=== PATIENT | male | born 1955 | race Caucasian/White ===

== ENCOUNTER 2018-02-17 22:16 | Observation (INO) | payer OTHER ==
[2018-02-17] MEDS ORDERED: DILTIAZEM 50 MG in SODIUM CHLORIDE 0.9% 40 ML IV ONE (22:45)
--- NOTE | 2018-02-17 22:47 | ED ---
General Adult HPI - General Chief complaint: Chest Pain Stated complaint: heart palpitations Time Seen by Provider: 02/17/18 22:33 Source: patient, RN notes reviewed Mode of arrival: wheelchair Limitations: no limitations - History of Present Illness Initial comments: Patient is a pleasant 62-year-old male presenting to the emergency Department with palpitations and chest discomfort. Onset of symptoms was around 8 PM. Discomfort has improved. Palpitations have resolved. Chest discomfort is minimal and described as pressure. did feel short of breath earlier. No history of similar symptoms previously. No history of previous cardiac problems or arrhythmia. - Related Data Home Medications Medication Instructions Recorded Confirmed Ascorbic Acid [Vitamin C] 1,000 mg PO DAILY 02/17/18 02/17/18 Calcium Carbonate [Calcium] 600 mg PO DAILY 02/17/18 02/17/18 Cholecalciferol [Vitamin D3] 1,000 unit PO DAILY 02/17/18 02/17/18 Hydrochlorothiazide 12.5 mg PO DAILY 02/17/18 02/17/18 Lisinopril 40 mg PO DAILY 02/17/18 02/17/18 Magnesium 200 mg PO DAILY 02/17/18 02/17/18 Metoprolol Succinate [Toprol Xl] 100 mg PO DAILY 02/17/18 02/17/18 Potassium 99 mg PO DAILY 02/17/18 02/17/18 Vitamin B Complex 1 cap PO DAILY 02/17/18 02/17/18 Zinc 50 mg PO DAILY 02/17/18 02/17/18 amLODIPine BESYLATE [Norvasc] 10 mg PO DAILY 02/17/18 02/17/18 Allergies Allergy/AdvReac Type Severity Reaction Status Date / Time No Known Allergies Allergy Verified 02/17/18 22:57 Review of Systems ROS Statement: Those systems with pertinent positive or pertinent negative responses have been documented in the HPI. ROS Other: All systems not noted in ROS Statement are negative. Constitutional: Denies: fever Eyes: Denies: eye pain ENT: Denies: ear pain Respiratory: Reports: dyspnea. Denies: cough Cardiovascular: Reports: chest pain, palpitations Endocrine: Denies: fatigue Gastrointestinal: Denies: abdominal pain Genitourinary: Denies: dysuria Musculoskeletal: Denies: back pain Skin: Denies: rash Neurological: Denies: weakness Past Medical History Past Medical History: Hypertension History of Any Multi-Drug Resistant Organisms: None Reported Past Surgical History: Appendectomy Additional Past Surgical History / Comment(s): eyes, nasal Past Psychological History: No Psychological Hx Reported Smoking Status: Former smoker Past Alcohol Use History: Rare Past Drug Use History: None Reported General Exam Limitations: no limitations General appearance: alert, in no apparent distress, obese Head exam: Present: atraumatic Eye exam: Present: normal appearance, PERRL ENT exam: Present: normal oropharynx Neck exam: Present: normal inspection Respiratory exam: Present: normal lung sounds bilaterally Cardiovascular Exam: Present: irregular rhythm, normal heart sounds Expanded Peripheral pulses: 2+: Radial (R), Radial (L), Dorsalis Pedis (R), Dorsalis Pedis (L) GI/Abdominal exam: Present: soft. Absent: tenderness Extremities exam: Present: normal inspection. Absent: pedal edema, calf tenderness Neurological exam: Present: alert Psychiatric exam: Present: normal affect, normal mood Skin exam: Present: normal color Course Vital Signs 02/17/18 22:19 Temperature 97.1 F L Pulse Rate 114 H Respiratory 18 Rate Blood Pressure 180/97 O2 Sat by Pulse 97 Oximetry EKG Findings - EKG Comments: EKG Findings:: A. fib with RVR, rate 121. QRS 98. QT 340. QTc 482. Normal axis. Normal QRS. No acute ST change. Medical Decision Making - Medical Decision Making Patient reevaluated and resting comfortably in bed. Heart rate between 100- 110. Patient and family updated on results and plan. Case was discussed in detail with Dr. mazariegos, who will admit for Dr. Mays. Cardiology will be placed on consult. - Lab Data Result diagrams: 02/17/18 22:48 02/17/18 22:48 Lab Results 02/17/18 02/17/18 02/17/18 Range/Units 22:48 22:48 22:48 WBC 13.3 H (3.8-10.6) k/uL RBC 4.95 (4.30-5.90) m/uL Hgb 14.0 (13.0-17.5) gm/dL Hct 40.9 (39.0-53.0) % MCV 82.6 (80.0-100.0) fL MCH 28.3 (25.0-35.0) pg MCHC 34.3 (31.0-37.0) g/dL RDW 14.2 (11.5-15.5) % Plt Count 245 (150-450) k/uL Neutrophils % 74 % Lymphocytes % 15 % Monocytes % 8 % Eosinophils % 2 % Basophils % 0 % Neutrophils # 9.8 H (1.3-7.7) k/uL Lymphocytes # 2.0 (1.0-4.8) k/uL Monocytes # 1.0 (0-1.0) k/uL Eosinophils # 0.3 (0-0.7) k/uL Basophils # 0.1 (0-0.2) k/uL PT (9.0-12.0) sec INR (<1.2) APTT (22.0-30.0) sec Sodium 142 (137-145) mmol/L Potassium 4.0 (3.5-5.1) mmol/L Chloride 102 (98-107) mmol/L Carbon Dioxide 23 (22-30) mmol/L Anion Gap 17 mmol/L BUN 16 (9-20) mg/dL Creatinine 1.00 (0.66-1.25) mg/dL Est GFR (CKD-EPI)AfAm >90 (>60 ml/min/1.73 sqM) Est GFR (CKD-EPI)NonAf 82 (>60 ml/min/1.73 sqM) Glucose 141 H (74-99) mg/dL Calcium 9.5 (8.4-10.2) mg/dL Magnesium 1.7 (1.6-2.3) mg/dL Total Bilirubin 0.3 (0.2-1.3) mg/dL AST 28 (17-59) U/L ALT 34 (21-72) U/L Alkaline Phosphatase 65 (38-126) U/L Total Creatine Kinase 177 H (55-170) U/L CK-MB (CK-2) 1.0 (0.0-2.4) ng/mL CK-MB (CK-2) Rel Index 0.6 Troponin I <0.012 (0.000-0.034) ng/mL Total Protein 7.8 (6.3-8.2) g/dL Albumin 4.6 (3.5-5.0) g/dL TSH 2.170 (0.465-4.680) mIU/L Free T4 0.94 (0.78-2.19) ng/dL Free T3 pg/mL 4.2 (2.8-5.3) pg/ml 02/17/18 Range/Units 22:48 WBC (3.8-10.6) k/uL RBC (4.30-5.90) m/uL Hgb (13.0-17.5) gm/dL Hct (39.0-53.0) % MCV (80.0-100.0) fL MCH (25.0-35.0) pg MCHC (31.0-37.0) g/dL RDW (11.5-15.5) % Plt Count (150-450) k/uL Neutrophils % % Lymphocytes % % Monocytes % % Eosinophils % % Basophils % % Neutrophils # (1.3-7.7) k/uL Lymphocytes # (1.0-4.8) k/uL Monocytes # (0-1.0) k/uL Eosinophils # (0-0.7) k/uL Basophils # (0-0.2) k/uL PT 10.5 (9.0-12.0) sec INR 1.1 (<1.2) APTT 23.8 (22.0-30.0) sec Sodium (137-145) mmol/L Potassium (3.5-5.1) mmol/L Chloride (98-107) mmol/L Carbon Dioxide (22-30) mmol/L Anion Gap mmol/L BUN (9-20) mg/dL Creatinine (0.66-1.25) mg/dL Est GFR (CKD-EPI)AfAm (>60 ml/min/1.73 sqM) Est GFR (CKD-EPI)NonAf (>60 ml/min/1.73 sqM) Glucose (74-99) mg/dL Calcium (8.4-10.2) mg/dL Magnesium (1.6-2.3) mg/dL Total Bilirubin (0.2-1.3) mg/dL AST (17-59) U/L ALT (21-72) U/L Alkaline Phosphatase (38-126) U/L Total Creatine Kinase (55-170) U/L CK-MB (CK-2) (0.0-2.4) ng/mL CK-MB (CK-2) Rel Index Troponin I (0.000-0.034) ng/mL Total Protein (6.3-8.2) g/dL Albumin (3.5-5.0) g/dL TSH (0.465-4.680) mIU/L Free T4 (0.78-2.19) ng/dL Free T3 pg/mL (2.8-5.3) pg/ml - Radiology Data Radiology results: image reviewed (Chest x-ray shows limited exam. No acute process.) Critical Care Time Critical Care Time: Yes Total Critical Care Time: 33 Disposition Clinical Impression: Atrial fibrillation with RVR Disposition: ADMITTED IP TO THIS HOSP Is patient prescribed a controlled substance at d/c from ED?: No Referrals: Rafael Mays MD [Primary Care Provider] - 1-2 days Decision Time: 00:16
[2018-02-17 23:00] LABS: Basophils # (A) 0.1 k/uL (0-0.2); Basophils % (A) 0 %; Eosinophils # (A) 0.3 k/uL (0-0.7); Eosinophils % (A) 2 %; HCT 40.9 % (39.0-53.0); Lymphocytes % (A) 15 %; MCH 28.3 pg (25.0-35.0); MCHC 34.3 g/dL (31.0-37.0); MCV 82.6 fL (80.0-100.0); Mean Platelet Volume 9.3; Monocytes % (A) 8 %; Neutrophils # (A) 9.8 k/uL (1.3-7.7); Neutrophils % (A) 74 %; Platelet Count 245 k/uL (150-450); RBC 4.95 m/uL (4.30-5.90); RDW 14.2 % (11.5-15.5); WBC 13.3 k/uL (3.8-10.6)
[2018-02-17 23:08] LABS: INR 1.1 (<1.2); Partial Thromboplastin Time 23.8 sec (22.0-30.0); Prothrombin Time 10.5 sec (9.0-12.0)
[2018-02-17 23:15] LABS: ALT 34 U/L (21-72); AST 28 U/L (17-59); Albumin 4.6 g/dL (3.5-5.0); Alkaline Phosphatase 65 U/L (38-126); Anion Gap 17 mmol/L; Blood Urea Nitrogen 16 mg/dL (9-20); Calcium 9.5 mg/dL (8.4-10.2); Carbon Dioxide 23 mmol/L (22-30); Chloride 102 mmol/L (98-107); Glucose 141 mg/dL (74-99); Magnesium 1.7 mg/dL (1.6-2.3); Sodium 142 mmol/L (137-145); Total Bilirubin 0.3 mg/dL (0.2-1.3); Total Protein 7.8 g/dL (6.3-8.2)
[2018-02-17 23:23] LABS: Creatine Kinase 177 U/L (55-170)
[2018-02-17 23:32] LABS: T4, Free (Free Thyroxine) 0.94 ng/dL (0.78-2.19)
[2018-02-17 23:36] LABS: Troponin I <0.012 ng/mL (0.000-0.034)
--- NOTE | 2018-02-17 23:43 | XR ---
EXAMINATION TYPE: XR chest 2V DATE OF EXAM: 02/17/2018 COMPARISON: NONE HISTORY: Heart palpitations TECHNIQUE: Frontal and lateral views of the chest are obtained. FINDINGS: There is no heart failure nor confluent pneumonic infiltrate. Exam is limited by the patie nt size. Heart is probably enlarged. There is no pleural effusion. There are chest leads. IMPRESSION: Limited exam. No active cardiopulmonary disease.
[2018-02-18] MEDS ORDERED: NITROGLYCERIN SL TABS 0.4 MG TAB SUBLINGUAL PRN (00:17)
[2018-02-18] MEDS ORDERED: HEPARIN SODIUM,PORCINE 5,000 UNIT/ML 1 ML VIAL IV PRN (00:17)
[2018-02-18] MEDS ORDERED: HEPARIN SODIUM,PORCINE 5,000 UNIT/ML 1 ML VIAL IV ONE (00:17)
[2018-02-18] MEDS ORDERED: HEPARIN SOD,PORK IN 0.45% NACL 25,000 UNIT in 0.45% NACL 1 500ML.BAG IV SCH (00:30)
[2018-02-18] MEDS: ASPIRIN 81 MG PO STA ×2 (00:36→00:37)
[2018-02-18 01:54] LABS: Glucose,Whole Blood 131 mg/dL (75-99)
[2018-02-18 02:26] VITALS: BMI 63.3
[2018-02-18 06:44] LABS: Mean Platelet Volume 8.7; Platelet Count 242 k/uL (150-450)
[2018-02-18 07:17] LABS: Creatine Kinase 164 U/L (55-170)
[2018-02-18 07:29] LABS: Troponin I <0.012 ng/mL (0.000-0.034)
--- NOTE | 2018-02-18 09:59 | ECHOF ---
Referral Reason:a fib MEASUREMENTS -------- HEIGHT: 193.0 cm WEIGHT: 235.9 kg BP: 159/95 RVIDd: 3.1 cm (< 3.3) IVSd: 2.0 cm (0.6 - 1.1) LVIDd: 4.7 cm (3.9 - 5.3) LVPWd: 1.8 cm (0.6 - 1.1) IVSs: 2.8 cm LVIDs: 2.7 cm LVPWs: 2.2 cm Ao Diam: 3.8 cm (2.0 - 3.7) AV Cusp: 2.7 cm (1.5 - 2.6) MV EXCURSION: 22.495 mm (> 18.000) MV EF SLOPE: 115 mm/s (70 - 150) EPSS: 0.8 cm FINDINGS -------- This was a technically difficult study with suboptimal views. The left ventricular size is normal. There is severe concentric left ventricular hypertrophy. Ove rall left ventricular systolic function is normal with, an EF between 60 - 65 %. The right ventricle is normal in size. The left atrium was not well visualized. The right atrium is normal in size. 5 ml of Lumason was utilized for enhancement of images. The aortic valve is trileaflet and appears structurally normal. The mitral valve was not well visualized. The tricuspid valve was not well visualized. The pulmonic valve was not well visualized. The aortic root is dilated measuring 3.8cm. There is no pericardial effusion. CONCLUSIONS -------- 1. This was a technically difficult study with suboptimal views. 2. The left ventricular size is normal. 3. There is severe concentric left ventricular hypertrophy. 4. Overall left ventricular systolic function is normal with, an EF between 60 - 65 %. 5. The right ventricle is normal in size. 6. The left atrium was not well visualized. 7. The right atrium is normal in size. 8. 5 ml of Lumason was utilized for enhancement of images. 9. The aortic valve is trileaflet and appears structurally normal. 10. The mitral valve was not well visualized. 11. The tricuspid valve was not well visualized. 12. The pulmonic valve was not well visualized. 13. The aortic root is dilated measuring 3.8cm. 14. There is no pericardial effusion. PIECE DYER: Guera Gorman RDCS
--- NOTE | 2018-02-18 10:41 | CONS ---
CONSULTATION Mr. Lunsford is a 62-year-old male with a history of hypertension who presented with symptoms of palpitation that occurred at rest, associated with some tightness in the chest and dyspnea. He did not have any dizziness. He came into the emergency room, was noted to be in atrial fibrillation with rapid ventricular response and subsequently converted to sinus mechanism. He has maintained sinus mechanism since that time. He denies any prior history of documented arrhythmia. He has no prior cardiac history. He is not very active physically because of his history of arthritis. He has no history of peripheral edema. The chronic dyspnea on exertion was worse yesterday. He has no history of PND nor orthopnea. He has symptoms highly suggestive of obstructive sleep apnea, but has not been diagnosed in the past. He has no history of ischemic heart disease. His coronary risk factors are remarkably for hypertension. He stopped smoking a long time ago. He has no history of diabetes. His lipid profile has been stable according to him MEDICATION: His medications at home include amlodipine 10 mg daily, potassium, metoprolol succinate 100 mg daily, magnesium, lisinopril 40 mg daily, hydrochlorothiazide 12.5 mg daily, calcium carbonate, vitamin D and vitamin C. REVIEW OF SYSTEMS: RESPIRATORY SYSTEM: He has dyspnea on exertion, but no documented history of asthma, emphysema or bronchitis. GI SYSTEM: No recent GI bleed. No peptic ulcer disease. SYSTEM: No dysuria or hematuria. NERVOUS SYSTEM: No history of stroke or seizure. PHYSICAL EXAMINATION: He is a 62-year-old male, alert, oriented, in no apparent distress. Morbidly obese. Blood pressure 159/90 with the heart rate in the 80s. HEAD: Normocephalic. EYES: Sclerae anicteric. NECK: Good upstroke. No bruit. No jugular venous distention. LUNGS: Clear to auscultation. HEART: Regular rate and rhythm. S1, S2. No S3. No rub. ABDOMEN: Soft, obese. Positive bowel sounds. No organomegaly. EXTREMITIES: No edema. +2 distal pulses. LAB DATA: Lab data revealed troponin less than 0.012. BUN and creatinine of 16 and 1.0. TSH 2.17. Hemoglobin of 14. EKG revealed atrial fibrillation, rate of 121, normal axis, nonspecific ST-T wave changes. Chest x-ray shows no acute infiltrate. IMPRESSION: 1. Paroxysmal atrial fibrillation, back in sinus mechanism. 2. Hypertension. 3. Morbid obesity. 4. Evidence consistent with obstructive sleep apnea. RECOMMENDATION: I will stop the heparin and the IV Cardizem. I will switch him to oral Cardizem instead of the amlodipine. I will start him on Xarelto. I discussed with him the issue of thromboembolic phenomenon. An echocardiogram with Doppler will be obtained. The patient will require a sleep apnea study. I have discussed with him the importance of weight loss. Depending on his progress, further recommendation to be made. If he remains stable, I would expect he should be able to be discharged home in the next 24 hours. MMODL / IJN: [id number] /
[2018-02-18] MEDS: HYDROCHLOROTHIAZIDE 12.5 MG CAP PO SCH (10:50)
[2018-02-18] MEDS: LISINOPRIL 20 MG TAB PO SCH (10:50)
[2018-02-18] MEDS: RIVAROXABAN 20 MG TAB PO SCH ×2 (10:50→16:31)
[2018-02-18] MEDS: POTASSIUM CHLORIDE ER 10 MEQ TAB.ER.PRT PO SCH (10:51)
[2018-02-18] MEDS: DILTIAZEM ORAL 30 MG TAB PO SCH ×3 (10:51→21:12)
[2018-02-18 13:21] LABS: Creatine Kinase 185 U/L (55-170)
[2018-02-18 13:32] LABS: Creatine Kinase MB 1.1 ng/mL (0.0-2.4); Troponin I <0.012 ng/mL (0.000-0.034)
--- NOTE | 2018-02-18 17:38 | HP ---
HISTORY AND PHYSICAL DATE OF SERVICE: 02/18/18. PRESENTING COMPLAINT: Heart racing. HISTORY OF PRESENTING COMPLAINT: A very pleasant 62-year-old patient of Dr. Mays whose chronic stable medical conditions include arthritis in the knees, hypertension, obesity. The patient yesterday evening felt his heart racing, some mild chest discomfort. No dizziness, lightheadedness, did not stop on its own and decided to come down to the ER. In the ER where patient is put on IV Cardizem and IV heparin. The patient subsequently did revert himself to sinus rhythm and has been asymptomatic since then. Denies any prior cardiac history. REVIEW OF SYSTEMS: CONSTITUTIONAL: None. HEENT: None. RESPIRATORY: As above. CARDIOVASCULAR: As above. GASTROINTESTINAL: None. GENITOURINARY: None. MUSCULOSKELETAL: Arthritic pain especially in the feet and knees, some hips. DERMATOLOGICAL, HEMATOLOGIC, LYMPHATIC: None. PSYCHIATRY: None. NEUROLOGICAL: None. PAST HISTORY: Past history of hypertension, obesity, osteoarthritis. PAST SURGICAL HISTORY: Appendectomy. SOCIAL HISTORY: No smoking. Alcohol rarely. Lives with significant other. Retired. FAMILY HISTORY: Myocardial infarction, hypertension, congestive heart failure. HOME MEDICATIONS: 1. Norvasc 10 mg p.o. daily. 2. Zinc 50 mg p.o. daily. 3. Vitamin B complex 1 capsule p.o. daily. 4. Potassium 99 mg p.o. daily. 5. Toprol-XL 100 mg p.o. daily. 6. Magnesium 200 mg p.o. daily. 7. Lisinopril 40 mg p.o. daily. 8. Hydrochlorothiazide 12.5 p.o. daily. 9. Vitamin D3 1000 units p.o. daily. 10.Calcium 600 mg p.o. daily. 11.Vitamin C 1000 mg p.o. daily. ALLERGIES: None. EXAMINATION: Temp 98, pulse 54, respiration 18, blood pressure 150/78, pulse ox 95% on room air. GENERAL APPEARANCE: Morbidly obese, BMI 81.4. Sitting up in a chair, comfortable. EYES: Pupils equal. Conjunctivae normal. HEENT: External appearance nose and ears normal. Oral cavity normal. NECK: Short, thick. JVD unable to assess. Mass not palpable. RESPIRATORY: Effort normal. Lungs distant breath sounds. CARDIOVASCULAR: Heart sounds first and second sounds normal. No edema. ABDOMEN: Distended, soft. Liver and spleen not palpable. LYMPHATIC: No lymph node palpable in neck and axillae. PSYCHIATRY: Alert and oriented x3. Mood and affect normal. NEUROLOGICAL: Pupils are clear. Cranial nerves grossly intact. Power and sensation grossly intact. MUSCULOSKELETAL: Evidence of osteoarthritis especially in the knees. INVESTIGATIONS: White count 13.3, hemoglobin 14, potassium 4.0, BUN and creatinine normal. Troponin x3 negative. TSH was normal. EKG shows atrial fibrillation, rate uncontrolled. 2D echo shows severe concentric left ventricular hypertrophy. ASSESSMENT: 1. Paroxysmal atrial fibrillation, rapid ventricular rate, reverted to sinus rhythm within less than 24 hours. 2. Hypertensive heart disease. 3. Morbid obesity, BMI 81.4. 4. Essential hypertension. 5. Primary osteoarthritis of both the knees. 6. IV heparin monitoring. PLAN: Patient's heparin and Cardizem was discontinued, switched to oral Cardizem. The patient also put on Toprol-XL and Xarelto. Seen by Cardiology. Will have dietitian see the patient for weight loss measures. Care was discussed with the patient. MMODL / IJN: [id number] /
[2018-02-19 05:35] LABS: HCT 38.3 % (39.0-53.0); HGB 13.2 gm/dL (13.0-17.5); MCH 28.6 pg (25.0-35.0); MCHC 34.5 g/dL (31.0-37.0); MCV 82.9 fL (80.0-100.0); Mean Platelet Volume 8.6; Platelet Count 224 k/uL (150-450); RBC 4.63 m/uL (4.30-5.90); RDW 14.3 % (11.5-15.5)
[2018-02-19 05:47] LABS: Anion Gap 14 mmol/L; Blood Urea Nitrogen 16 mg/dL (9-20); Calcium 9.2 mg/dL (8.4-10.2); Carbon Dioxide 24 mmol/L (22-30); Chloride 103 mmol/L (98-107); Cholesterol 107 mg/dL (<200); Glucose 124 mg/dL (74-99); HDL Cholesterol 30 mg/dL (40-60); LDL Cholesterol,Calculated 53 mg/dL (0-99); Magnesium 1.9 mg/dL (1.6-2.3); Phosphorus 3.4 mg/dL (2.5-4.5); Potassium 3.7 mmol/L (3.5-5.1); Sodium 141 mmol/L (137-145); Triglycerides 119 mg/dL (<150)
[2018-02-19] MEDS ORDERED: POTASSIUM CHLORIDE ER 20 MEQ TAB.ER PO SCH (07:00)
[2018-02-19] MEDS: POTASSIUM CHLORIDE ER 10 MEQ TAB.ER.PRT PO SCH (08:05)
[2018-02-19] MEDS: DILTIAZEM ORAL 30 MG TAB PO SCH (08:06)
[2018-02-19] MEDS: LISINOPRIL 20 MG TAB PO SCH (08:06)
[2018-02-19] MEDS: HYDROCHLOROTHIAZIDE 12.5 MG CAP PO SCH (08:06)
[2018-02-19] MEDS ORDERED: MAGNESIUM OXIDE 400 MG TAB PO SCH (09:00)
[2018-02-19] MEDS ORDERED: METOPROLOL SUCCINATE (ER) 100 MG TAB.ER.24H PO SCH (09:00)
[2018-02-19] MEDS ORDERED: ASCORBIC ACID 500 MG TAB PO SCH (09:00)
[2018-02-19] MEDS ORDERED: ASPIRIN 325 MG TAB PO SCH (09:00)
[2018-02-19 09:05] VITALS: BP 148/63; PULSE 87; RESP 16; TEMP 97.9
--- NOTE | 2018-02-19 11:03 | PN ---
PROGRESS NOTE Mr. Lunsford is a 63-year-old male who presented with symptoms of palpitation, was noted to be in atrial fibrillation. Subsequently he converted to sinus mechanism. He is doing well this morning. He continues to be in sinus mechanism. He denies any dizziness or palpitation. He denies any nausea. He has been sitting up without any difficulty. He had an echocardiogram performed yesterday that showed a preserved systolic function. He continues to be on Xarelto 20 mg daily, metoprolol succinate 100 mg daily, lisinopril 40 mg daily, diltiazem 30 mg 3 times a day. PHYSICAL EXAMINATION: Blood pressure 148/60 with a heart rate in the 80s. LUNGS: Clear. HEART: Regular rate and rhythm. S1, S2. No S3. No rub. ABDOMEN: Soft, obese, nontender. EXTREMITIES: No significant edema. LAB DATA: BUN and creatinine of 16 and 0.8, potassium 3.7, hemoglobin 13.2. IMPRESSION: 1. Paroxysmal atrial fibrillation; remaining in sinus mechanism. 2. Hypertension. 3. Morbid obesity. 4. Probable obstructive sleep apnea. RECOMMENDATION: Patient should be able to be discharged home today and followed as an outpatient. He will undergo a sleep study as an outpatient and he will be seen by Dr. Davies in that regard. MMODL / IJN: [id number] /
--- NOTE | 2018-02-19 11:48 | DS ---
DISCHARGE SUMMARY DATE OF ADMISSION: 02/18/2018. DATE OF DISCHARGE: 02/19/2018 FINAL DIAGNOSES: 1. Paroxysmal atrial fibrillation with rapid ventricular rate, reverted to sinus rhythm within a few hours. 2. Hypertensive heart disease. 3. Morbid obesity with body mass index of 81.4. 4. Essential hypertension. 5. Primary osteoarthritis of both knees. 6. IV heparin monitoring. CONSULTATION: Dr. Maxwell from Cardiology. HOSPITAL COURSE: This patient presented with heart racing, found to be in atrial flutter/fibrillation, put on IV heparin, Cardizem, reverted to normal sinus rhythm within a few hours. Two-D echo showed preserved LV function. TSH was normal. The patient has remained in sinus rhythm. PHYSICAL EXAMINATION: Lungs are clear. CARDIOVASCULAR: First and second sounds normal. CONSULTATION: Dr. Maxwell from Cardiology. DISCHARGE MEDICATIONS: 1. Vitamin C 1000 mg p.o. daily. 2. Calcium 600 mg p.o. daily. 3. Vitamin D3 1000 units p.o. daily. 4. Lisinopril 40 mg p.o. daily. 5. Magnesium 200 mg p.o. daily. 6. Toprol-XL 100 mg p.o. daily. 7. Potassium daily. 8. Vitamin B complex 1 capsule p.o. daily. 9. Zinc 50 mg p.o. daily. 10.Norvasc 10 mg p.o. daily. 11.Chlorthalidone 25 mg p.o. daily. New medication. 12.Cardizem 30 mg p.o. t.i.d. New medication. 13.Xarelto 20 mg p.o. with supper. New medication. Amlodipine discontinued. FOLLOWUP: Follow up with Dr. Maxwell in 2 weeks. Follow up with Dr. Mays in 3 days. BMP in 3 days. Care was discussed with the patient and family at bedside. MMODL / IJN: [id number] /
== END 2018-02-19 12:24 | disposition home or self-care (01) ==
LOC: EC 22:16 → 6ICU 02-18 00:17 → INTOOBSV 02-18 00:17 → UNDODISIN 02-19 12:24
PROVIDERS: ADMIT Hospitalist; ATTEND Hospitalist
DX: I48.0 Paroxysmal atrial fibrillation (principal); I11.9 Hypertensive heart disease without heart failure; I48.92 Unspecified atrial flutter; E66.01 Morbid (severe) obesity due to excess calories; Z68.45 Body mass index [BMI] 70 or greater, adult; M17.0 Bilateral primary osteoarthritis of knee; M16.0 Bilateral primary osteoarthritis of hip; M19.072 Primary osteoarthritis, left ankle and foot; M19.071 Primary osteoarthritis, right ankle and foot; Z79.899 Other long term (current) drug therapy; Z87.891 Personal history of nicotine dependence; Z82.49 Family history of ischemic heart disease and other diseases of the circulatory system
CPT/HCPCS: 96365 ×2; 99291 ×2; 96376 ×2; 96366 ×2; 96368; 36415; 93005; 84439; 84481; 80061; 80053; 80048; 82550 ×2; 82553 ×2; 83735 ×2; 84100; 84443; 84484 ×2; 85025; 85027; 85049; 85610; 85730 ×2; 71046; G0378 ×2; C8929; J1644 ×2; Q9950; 93306

== ENCOUNTER → 2018-02-21 | Outpatient (CLI) | payer OTHER ==
[2018-02-21 13:05] LABS: Anion Gap 17 mmol/L; Blood Urea Nitrogen 18 mg/dL (9-20); Calcium 9.7 mg/dL (8.4-10.2); Carbon Dioxide 25 mmol/L (22-30); Chloride 102 mmol/L (98-107); Glucose 115 mg/dL (74-99); Potassium 4.7 mmol/L (3.5-5.1); Sodium 144 mmol/L (137-145)
== END | disposition home or self-care (01) ==
LOC: LABWHC1 12:08
PROVIDERS: ATTEND Hospitalist
DX: I48.91 Unspecified atrial fibrillation (principal)
CPT/HCPCS: 36415; 80048

== ENCOUNTER → 2018-04-05 | Outpatient (CLI) | payer OTHER ==
--- NOTE | 2018-04-05 18:33 | CONS ---
CONSULTATION REASON FOR CONSULTATION: Obstructive sleep apnea. Mr. Lunsford is a pleasant 63-year-old male patient, morbidly obese. He was recently hospitalized for new-onset atrial fibrillation. He has a history of chronic hypertension and he presented to the hospital because of palpitations, and sure enough, he had atrial fibrillation. He converted back to normal sinus mechanism. He was placed on a combination of Cardizem and metoprolol and Xarelto, and the echocardiogram of the heart that was done during his hospital stay showed a preserved LV function with an ejection fraction of 60% to 65% without any valvular abnormalities. Based on his anatomic features, he was referred to me for a sleep apnea evaluation. He has loud snoring. He sleeps with the head of the bed elevated at 30 degrees with a couple of pillows. He stops breathing at night and he has chronic tiredness and sleepiness during the day. He goes to bed around 10 p.m., wakes up at 7 a.m. in the morning, non- refreshed. He drives a car, has never been involved in a motor vehicle accident because of feeling drowsy or sleepy. He has some chronic edema in the lower extremities bilaterally. His BMI is 62.5. His neck size is 22. High risk for obstructive sleep apnea. PAST MEDICAL HISTORY: 1. Paroxysmal atrial fibrillation. Current rhythm is sinus mechanism. 2. Morbid obesity with BMI of 62. 3. Hypertension. SURGICAL HISTORY: 1. Eye surgery, left. 2. Sinus surgery for deviated septum. 3. Appendectomy. ALLERGIES: NOT KNOWN. OUTPATIENT MEDICATION LIST: 1. Norvasc 10. 2. Hydrochlorothiazide 25. 3. Cardizem 30 mg t.i.d. 4. Lisinopril 40 daily. 5. Metoprolol 100 daily. 6. Xarelto 20 daily. SOCIAL HISTORY: Nonsmoker. No history of alcoholism. No history of IV drugs. FAMILY HISTORY: Negative for sleep apnea. REVIEW OF SYSTEMS: Twelve-point review of systems was done. Positive findings are all mentioned above in the history of present illness. The patient admits to quit breathing at night as witnessed by other family members. He has difficulty with mobility due to his body weight and he walks around with the help of a walker. He has been having issues with nocturia at night time, as he gets up at least 4 to 5 times to urinate. Occasionally he woken up gasping for air. No anxiety or panic attacks. No palpitation. No heartburn. No restlessness in the lower extremities. No sleepwalking or sleeptalking. No nightmares. No bad dreams. No sleep paralysis, hallucinations or cataplexy. No anxiety. No depression. PHYSICAL EXAMINATION: BP is 157/86, pulse 100, respirations 16. Temperature is 97.8. Neck size 22 inches. BMI 62.5. Saturation 98% on room air. GENERAL APPEARANCE: Calm, comfortable. No acute distress. Head is atraumatic, normocephalic. Neck is short, supple. Crowding of posterior pharynx. Mallampati class IV. LUNGS: Clear to auscultation. Heart sounds are regular rate and rhythm. Normal S1, S2. No S3, S4. No murmurs. ABDOMEN: Soft, nontender. No organomegaly. In fact, organs cannot be actually palpated because of his morbidly obese body habitus. No ascites. EXTREMITIES: Plus one edema. There is no cyanosis or clubbing. NEUROLOGIC: Awake and alert. There is no focal neurological deficit. PSYCHIATRIC: Negative for anxiety or depression. Skin is negative for any wounds or ulceration. IMPRESSION: 1. Obstructive sleep apnea clinically suspected. Overall clinical suspicion is quite high in this patient who has obvious symptoms and anatomic features. 2. Obesity; body mass index of 62.5. 3. Mallampati class IV with a neck size of 22. 4. Paroxysmal atrial fibrillation, currently in normal sinus mechanism. 5. Hypertension. PLAN: 1. Will set up this patient for a polysomnogram and decide on treatment accordingly. 2. Encourage weight loss. 3. Continue implementing good sleep hygiene measures. 4. Tight control of cardiovascular risk factors and atrial fibrillation management. 5. Will continue to follow and will make further recommendations based on the results. MMODL / IJN: [id number] /
== END | disposition home or self-care (01) ==
LOC: SLEEP 15:40
PROVIDERS: ATTEND Internal Medicine Critical Care Medicine
DX: E66.9 Obesity, unspecified (principal); I10 Essential (primary) hypertension; Z68.44 Body mass index [BMI] 60.0-69.9, adult; Z79.899 Other long term (current) drug therapy
CPT/HCPCS: 99211

== ENCOUNTER → 2018-07-19 | Outpatient (CLI) | payer OTHER ==
--- NOTE | 2018-07-19 14:55 | PN ---
PROGRESS NOTE This is a 63-year-old male patient with severe obstructive sleep apnea with an AHI of 92.8, and the patient is coming in for a compliancy check. The patient was diagnosed having obstructive sleep apnea recently and the patient was given BiPAP at a pressure of 16/12 cm of water. On today's evaluation, the patient feels great, he reports marked improvement in sleep quality. He is sleeping much better. He is waking up much more alert and refreshed during the day. His nocturia has also recovered. No hypersomnia or sleepiness during the day. He is trying to take no naps during the day. His weight is down by around 10 pounds, he used to weight 514 and is currently down to 504 pounds. Overall, improved and is benefitting from the treatment and his current Schlater score is down to 4. Based on the compliance data, patient utilizes his CPAP 100% of the time. The patient utilizes CPAP more than 4 hours 100% of the time. His pressure is at 16/12 cm of water. His tidal volume obtained is 700, his synchrony is 98%. His AHI while on treatment is down to 4.6, leak factor is 10 L/minute. As the patient utilizing a Simplus fullface medium size. No other complaints for now. No aerophagia. No leaks around the mask. Some occasional dryness in his eyes for which he is using eye drops. REVIEW OF SYSTEMS: A 12-point review of system was done. Weight is down by around 10 pounds and the patient is feeling much more refreshed and alert during the day. His treatment is quite successful for now. No restlessness in the lower extremities, no depression or anxiety. No heartburn, no shortness of breath. No chest pain. PHYSICAL EXAMINATION: BP is 168/86, pulse 78, respirations 16, weight is 504, temperature is 97.8, saturation 97% on room air. GENERAL APPEARANCE: Calm, comfortable. Head is atraumatic, normocephalic. Neck is short, supple. There is crowding of posterior pharynx. There is no goiter or neck masses. Lungs diminished, otherwise clear. HEART: Sounds are regular. Normal S1, S2. No S3. No murmurs. ABDOMEN: Obese, soft, nontender. No organomegaly. EXTREMITIES: Trace edema. There is no cyanosis or clubbing. IMPRESSION: 1. Severe symptomatic obstructive sleep apnea with an apnea-hypopnea index of 92. Patient undergoing successful BiPAP treatment with a pressure of 16/12 cm of water. 2. Hypersomnia, improved Schlater score is down to 4. 3. Sleep fragmentation improved. 4. Sleep quality improved. 5. Obesity with a body mass index of 62.6. Currently his weight is down to 504. 6. Paroxysmal atrial fibrillation. 7. Hypertension. PLAN: Congratulated this patient's effort to use his BiPAP. His treatment is successful, he is benefitting from the treatment. Continue the same pressure setting, continue the same mask interface, encourage weight loss. Control of cardiovascular risk factors. Treatment was successful. See me back in a year's time. Follow up earlier, if needed. MMODL / IJN: [id number] /
== END | disposition home or self-care (01) ==
LOC: SLEEP 12:59
PROVIDERS: ATTEND Internal Medicine Critical Care Medicine
DX: G47.33 Obstructive sleep apnea (adult) (pediatric) (principal); I48.0 Paroxysmal atrial fibrillation; E66.9 Obesity, unspecified; I10 Essential (primary) hypertension; Z99.89 Dependence on other enabling machines and devices; Z68.44 Body mass index [BMI] 60.0-69.9, adult

== ENCOUNTER 2019-02-24 21:14 | Emergency (ER) | payer OTHER ==
[2019-02-24 21:18] VITALS: TEMP 98.1
--- NOTE | 2019-02-24 22:07 | XR ---
EXAMINATION TYPE: XR shoulder complete RT DATE OF EXAM: 02/24/2019 COMPARISON: NONE HISTORY: Fall. Pain. TECHNIQUE: 3 views FINDINGS: There is anterior dislocation of the humeral head. There is irregular calcification of the glenoid. There is spurring at the AC joint. IMPRESSION: Osteoarthritic changes of the shoulder joint. There is an anterior dislocation of the hum eral head. No fracture seen.
[2019-02-24] MEDS ORDERED: MORPHINE SULFATE 4 MG/ML SYRINGE IVP STA (22:09)
--- NOTE | 2019-02-24 22:19 | XR ---
EXAM: XR Right Elbow Complete, 3 or More Views CLINICAL HISTORY: ITS.REASON XR Reason: Pain TECHNIQUE: Frontal, lateral and oblique views of the right elbow. COMPARISON: None FINDINGS: Bones/joints: No acute fracture or dislocation identified. Degenerative changes of the right elbow. No joint effusion. Soft tissues: Normal. IMPRESSION: No acute abnormality identified.
--- NOTE | 2019-02-24 22:42 | XR ---
EXAM: XR Right Shoulder Complete, 2 or More Views CLINICAL HISTORY: ITS.REASON XR Reason: post reduction TECHNIQUE: Two or more views of the right shoulder. COMPARISON: Right shoulder radiographs on 02/24/2019 at 2205 hrs. FINDINGS: Bones/joints: Normal alignment of the right shoulder joint status post reduction. No definite acute fracture identified. Degenerative changes of the right acromial clavicular joint. Degenerative changes of the right glenohumeral joint. Soft tissues: Normal. IMPRESSION: Normal alignment of the right shoulder joint status post reduction. No definite acute fracture identified.
[2019-02-24 23:10] VITALS: BP 139/86; PULSE 87; RESP 18
--- NOTE | 2019-02-24 23:18 | ED ---
Upper Extremity HPI - General Chief Complaint: Extremity Injury, Upper Stated Complaint: Shoulder pain Time Seen by Provider: 02/24/19 21:36 Source: patient Mode of arrival: wheelchair Limitations: no limitations - History of Present Illness Initial Comments: 64-year-old male presenting today for chief complaint of right shoulder pain. Patient states he was stepping into his truck he states he has bilateral "bad knees". He states his left knee felt like it gave out he fell onto his right side extending his right arm to catch his fall. Patient states he felt his shoulder pop and was unable to range at the right shoulder. Patient was concerned of dislocation. Patient states his right shoulder was hanging. Patient denies pain at the elbow or wrist. Patient states he is unable to extend at the wrist. Admits to a tingling sensation. Patient denies injury to the head or neck. Patient denies any back pain knee pain hip pain and leg pain. Patient states he feels fine aside from the pain in the right shoulder. Which he describes as tolerable sharp pain that increases with range of motion. Patient denies any pain of the scapula. Remaining review of systems negative, Patient denies any recent fever, chills, shortness of breath, chest pain, back pain, abdominal pain, nausea or vomiting, dysuria or hematuria, constipation or diarrhea, headaches or visual changes, or any other complaints. - Related Data Home Medications Medication Instructions Recorded Confirmed Ascorbic Acid [Vitamin C] 1,000 mg PO DAILY 02/17/18 02/24/19 Calcium Carbonate [Calcium] 600 mg PO DAILY 02/17/18 02/24/19 Cholecalciferol [Vitamin D3] 1,000 unit PO DAILY 02/17/18 02/24/19 Lisinopril 40 mg PO DAILY 02/17/18 02/24/19 Magnesium 200 mg PO DAILY 02/17/18 02/24/19 Metoprolol Succinate [Toprol Xl] 100 mg PO DAILY 02/17/18 02/24/19 Potassium 99 mg PO DAILY 02/17/18 02/24/19 Vitamin B Complex 1 cap PO DAILY 02/17/18 02/24/19 Zinc 50 mg PO DAILY 02/17/18 02/24/19 amLODIPine BESYLATE [Norvasc] 10 mg PO DAILY 02/17/18 02/24/19 Previous Rx's Medication Instructions Recorded Chlorthalidone 25 mg PO DAILY #30 tab 02/19/18 Diltiazem Oral [Cardizem*] 30 mg PO TID #90 tab 02/19/18 Rivaroxaban [Xarelto] 20 mg PO W/SUPPER #30 tab 02/19/18 HYDROcodone/APAP 5-325MG [[place] 1 tab PO Q6HR PRN 3 Days #12 tab 02/25/19 5-325] Allergies Allergy/AdvReac Type Severity Reaction Status Date / Time No Known Allergies Allergy Verified 02/24/19 22:03 Review of Systems ROS Statement: Those systems with pertinent positive or pertinent negative responses have been documented in the HPI. ROS Other: All systems not noted in ROS Statement are negative. Past Medical History Past Medical History: Hypertension History of Any Multi-Drug Resistant Organisms: None Reported Past Surgical History: Appendectomy Additional Past Surgical History / Comment(s): eyes, nasal Past Psychological History: No Psychological Hx Reported Smoking Status: Former smoker Past Alcohol Use History: Rare Past Drug Use History: None Reported - Past Family History Mother Family Medical History: AFIB, Congestive Heart Failure (CHF), Hypertension, Myocardial Infarction (SD) General Exam - General Exam Comments Initial Comments: General: The patient is awake and alert, in no distress, and does not appear acutely ill. Eye: +3 mm pupils are equal, round and reactive to light, extra-ocular movements are intact. No nystagmus. There is normal conjunctiva bilaterally. No signs of icterus. Ears, nose, mouth and throat: There are moist mucous membranes and no oral lesions. Neck: The neck is supple, there is no tenderness or JVD. Cardiovascular: There is a regular rate and rhythm. No murmur, rub or gallop is appreciated. Respiratory: Lungs are clear to auscultation, respirations are non-labored, breath sounds are equal. No wheezes, stridor, rales, or rhonchi. Gastrointestinal: Soft, non-distended, non-tender abdomen without masses or organomegaly noted. There is no rebound or guarding present.. Bowel sounds are unremarkable. Musculoskeletal: Normal ROM at the elbow b/l, left shoulder and left wrist, no tenderness. Deformities or tenderness to palpation the clavicles. Patient has gross deformity of the right shoulder. No pain or patient at the elbow or wrist. Right wrist drop noted. Patient is unable to extend at the wrist. Patient is able to oppose the first and second digits with full strength. Making the okay sign. Patient's able to oppose the pinky and the thumb. Patient is able to give a thumbs up sign. Patient is not able to extend at the right wrist. Patient denies any numbness in the badge region Strength 5/5 at the elbows, patient is able to fully flex at the wrist however no strength with extension. Sensation intact. Radial pulses equal bilaterally 2+. Neurological: A&O x 3. CN II-XII intact, There are no obvious motor or sensory deficits. Coordination appears grossly intact. Speech is normal. Skin: Skin is warm and dry and no rashes or lesions are noted. Psychiatric: Cooperative, appropriate mood & affect, normal judgment. Limitations: no limitations Course Vital Signs 02/24/19 02/24/19 21:14 23:09 Temperature 98.1 F Pulse Rate 85 87 Respiratory 20 18 Rate Blood Pressure 187/90 139/86 O2 Sat by Pulse 97 96 Oximetry Medical Decision Making - Medical Decision Making 64-year-old male presenting today for chief complaint of right shoulder pain. Patient concerned of dislocation. Gross deformity on exam. Patient had good radial pulses. However there was noted radial nerve palsy with right wrist drop on examination. After obtaining imaging studies patient was immediately reduced without sedation. I was assisted in the reduction by Physician Beam Dyer Ari Orozco. Sensory reduction patient tolerated the procedure well patient denies significant pain he admits to improvement of pain upon reduction. Reduction was confirmed using magic studies. No evidence of fracture. Patient states the symptoms tingling sensation in his fingers is subsiding. Strong radial pulses, post reduction. However patient continues to have right wrist drop. Patient is right-hand dominant. I contacted on-call orthopedic Physician Beam Dyer Arcadio Nevarez, who reviewed imaging studies. I discussed the finding of right wrist drop concern for radial nerve injury. He stated if patient was reduced, then he is stable for discharge regardless of palsy with orthopedic follow-up next week. Patient's arm was too large for sling. A supportive wrap was made using alvarado bandages of the right upper extremity to support the right shoulder. Pt provided RX of norco for pain management after getting proper use and risk involved. Patient verbalized understanding. I discussed the case with attending provider in detail Dr. Singh who was aware of radial nerve palsy and orthopedic recommendations, he reviewed imaging studies and is agreeable with patient care plan. Pt discharged appearing well. Prior to patient's discharge return parameters were discussed at length and in detail with both patient and patient's . This included immediate return for redislocation increasing pain numbness tingling or loss of sensation or coolness or pallor of the extremity. Patient verbalized understanding importance of return parameters denied questions at this time. Disposition Clinical Impression: Right anterior shoulder pain, Right wrist drop Disposition: HOME SELF-CARE Condition: Good Instructions (If sedation given, give patient instructions): Shoulder Dislocation (ED) Additional Instructions: Please use medication as discussed. Please follow-up with orthopedic surgery in the next week. Please return to emergency room if the symptoms increase or worsen or for any other concerns. Prescriptions: HYDROcodone/APAP 5-325MG [[place] 5-325] 1 tab PO Q6HR PRN 3 Days #12 tab PRN Reason: Severe Pain Is patient prescribed a controlled substance at d/c from ED?: No Referrals: Rafael Mays MD [Primary Care Provider] - 1-2 days Eliseo Tang DO [Doctor of Osteopathic Medicine] - 1-2 days Time of Disposition: 23:17
== END 2019-02-25 00:44 | disposition home or self-care (01) ==
LOC: EC 21:14
DX: S43.014A Anterior dislocation of right humerus, initial encounter (principal); M21.331 Wrist drop, right wrist; G56.31 Lesion of radial nerve, right upper limb; I10 Essential (primary) hypertension; Z79.899 Other long term (current) drug therapy; Z87.891 Personal history of nicotine dependence; W19.XXXA Unspecified fall, initial encounter; Y92.009 Unspecified place in unspecified non-institutional (private) residence as the place of occurrence of the external cause
CPT/HCPCS: 73020; 73030; 73070; 99283; 23650; 96374; J2270

== ENCOUNTER → 2019-07-11 | Outpatient (CLI) | payer OTHER ==
--- NOTE | 2019-07-11 18:34 | PN ---
PROGRESS NOTE SLEEP CENTER PROGRESS NOTE: Herb is 64 with history of severe obstructive sleep apnea. The patient has an AHI of 92 and the patient has been successfully with a BiPAP pressure of 16/12 cm of water. The patient is coming in for an annual check. He is still using a Simplus full-face mask. Unfortunately he has not been given supplies on a regular basis and he is using an older mask for now. Nevertheless, he continues to be successfully treated. His compliance data was checked and the patient has been averaging around 8.3 hours of BiPAP use per night. His BiPAP use for more than 4 hours is 100%. His spontaneous cycling is around 95% of the time. Tidal volume is at 680 with a respiratory rate of 16 and a leak of 11 L/minute. His AHI is down to 4.3. He is losing weight. He used to weigh around 514 and he dropped down to 504, and currently he is down to 483. I am pleased to report that he is progressively losing weight over the past 12 months. No new complaints otherwise for now. His treatment remains successful. He is seeking a new mask or an alternative mask. REVIEW OF SYSTEMS: Fourteen-point review of systems was done. Positive findings were all mentioned above in the history of present illness. No morning headaches. No altered mentation. No cough or sputum production. No chest pain. No shortness of breath. No heartburn. No nausea, vomiting. No flatus. No falls. PHYSICAL EXAMINATION: VITAL SIGNS: BP is 202/83, pulse 86, respirations 16, temperature 98.0. Weight is 483. GENERAL APPEARANCE: Obese, calm, comfortable. HEAD: Atraumatic, normocephalic. NECK: Supple. No JVD. No goiter or neck masses. LUNGS: Diminished breath sounds; otherwise clear. HEART: Heart sounds are distant. Regular rate and rhythm. Normal S1, S2. No S3, S4. No murmurs. ABDOMEN: Obese, soft. Organs cannot be adequately palpated. There is no direct tenderness, rebound tenderness or guarding. EXTREMITIES: Trace edema. There is no cyanosis or clubbing. NEUROLOGIC: Alert and oriented x3. No focal neurological deficits. PSYCHIATRIC: Negative for anxiety or depression. IMPRESSION: 1. Severe obstructive sleep apnea with an apnea/hypopnea index of 92, currently on BiPAP at a pressure of 16/12 cm of water. Treatment continues to be successful and the patient remains extremely compliant. 2. Hypersomnia, recovered. 3. Sleep fragmentation, recovered. 4. Obesity with ongoing weight loss. Body weight is down to 483. 5. Hypertension with persistent elevation of blood pressure. The patient is asymptomatic; however, the blood pressure remains elevated, and needs to be following up with his primary care physician regarding this issue. 6. Paroxysmal atrial fibrillation. PLAN: 1. Continue BiPAP at the same level of pressure. 2. I offered the patient a Simplus full-face mask, large size. I also offered him a DreamWear large-sized [id number] full-face mask, and he will try to use both of them. These will be alternative masks for him. 3. Encourage weight loss. 4. Follow up with his primary care physician regarding the elevated blood pressure. 5. Tight control of cardiovascular risk factors. His treatment is successful for now. Will continue to follow. MMODL / IJN: [id number] /
== END | disposition home or self-care (01) ==
LOC: SLEEP 13:09
PROVIDERS: ATTEND Internal Medicine Critical Care Medicine
DX: G47.33 Obstructive sleep apnea (adult) (pediatric) (principal); R63.4 Abnormal weight loss; I10 Essential (primary) hypertension; I48.0 Paroxysmal atrial fibrillation; E66.9 Obesity, unspecified; Z99.89 Dependence on other enabling machines and devices

== ENCOUNTER 2019-12-19 08:07 | Observation (INO) | payer OTHER ==
--- NOTE | 2019-12-19 08:51 | ED ---
Chest Pain HPI - General Chief Complaint: Chest Pain Stated Complaint: A-fib Time Seen by Provider: 12/19/19 08:15 Source: patient, family Mode of arrival: wheelchair Limitations: no limitations - History of Present Illness Initial Comments: The patient is a 64-year-old male past history of hypertension and A. fib who presents to the emergency room with reported chest pain. He states that it awoke him from sleep. It occurred around 4 AM this morning. He describes it as a pressure sensation over the left side of his chest. States that it made him feel short of breath. He was wearing a CPAP at that time but was feeling even more short of breath. Denies nausea, vomiting or diaphoresis. No history of coronary artery disease. Does have a history of A. fib. He had one episode last year. At that time he had an echo of his heart performed. Denies ever having stress testing. He does have a history of hypertension. Strong family history of heart disease. Admits to some lower extremity swelling, no worse than normal. States that his chest pain is completely resolved at this time. No ripping or tearing sensation to his past. Denies any abdominal pain. No hemoptysis, cough, fevers or chills. There are no other alleviating, precipitating or modifying factors - Related Data Home Medications Medication Instructions Recorded Confirmed Ascorbic Acid [Vitamin C] 1,000 mg PO DAILY 02/17/18 12/19/19 Lisinopril 40 mg PO DAILY@1200 02/17/18 12/19/19 Magnesium 200 mg PO DAILY 02/17/18 12/19/19 Metoprolol Succinate [Toprol Xl] 100 mg PO HS 02/17/18 12/19/19 Potassium 99 mg PO DAILY 02/17/18 12/19/19 Vitamin B Complex 1 cap PO DAILY 02/17/18 12/19/19 Diltiazem Oral [Cardizem*] 30 mg PO BID@0800,1800 12/19/19 12/19/19 Multivitamins, Thera [Multivitamin 1 tab PO DAILY 12/19/19 12/19/19 (formulary)] Darden's Wort 150 mg PO DAILY 12/19/19 12/19/19 Turmeric Root Extract [Turmeric] 500 mg PO DAILY 12/19/19 12/19/19 Previous Rx's Medication Instructions Recorded Chlorthalidone 25 mg PO DAILY #30 tab 02/19/18 Warfarin [Coumadin] 9 mg PO DAILY #60 tab 12/20/19 Allergies Allergy/AdvReac Type Severity Reaction Status Date / Time No Known Allergies Allergy Verified 12/19/19 10:03 Review of Systems ROS Statement: Those systems with pertinent positive or pertinent negative responses have been documented in the HPI. ROS Other: All systems not noted in ROS Statement are negative. EKG Findings - EKG Comments: EKG Findings:: EKG demonstrates sinus rhythm with a ventricular rate 96. ID interval 210. QRS 94. QTC of 475. No acute ST segment elevations or depressions concerning for ischemic changes. Past Medical History Past Medical History: Hypertension, Prostate Disorder History of Any Multi-Drug Resistant Organisms: None Reported Past Surgical History: Orthopedic Surgery Additional Past Surgical History / Comment(s): eyes, nasal, L foot, lower back, R hand Past Psychological History: No Psychological Hx Reported Smoking Status: Former smoker Past Alcohol Use History: Rare Past Drug Use History: None Reported - Past Family History Mother Family Medical History: AFIB, Congestive Heart Failure (CHF), Hypertension, Myocardial Infarction ([place]) General Exam Limitations: no limitations, altered mental status General appearance: alert, in no apparent distress Head exam: Present: atraumatic, normocephalic, normal inspection Eye exam: Present: normal appearance, PERRL, EOMI. Absent: scleral icterus, conjunctival injection, periorbital swelling ENT exam: Present: normal exam, mucous membranes moist Neck exam: Present: normal inspection. Absent: tenderness, meningismus, lymphadenopathy Respiratory exam: Present: normal lung sounds bilaterally. Absent: respiratory distress, wheezes, rales, rhonchi, stridor Cardiovascular Exam: Present: regular rate, normal rhythm, normal heart sounds. Absent: systolic murmur, diastolic murmur, rubs, gallop, clicks GI/Abdominal exam: Present: soft, normal bowel sounds. Absent: distended, tenderness, guarding, rebound, rigid Extremities exam: Present: normal inspection, full ROM, normal capillary refill. Absent: tenderness, pedal edema, joint swelling, calf tenderness Back exam: Present: normal inspection Neurological exam: Present: alert, oriented X3, CN II-XII intact Psychiatric exam: Present: normal affect, normal mood Skin exam: Present: warm, dry, intact, normal color. Absent: rash Course Vital Signs 12/19/19 12/19/19 12/19/19 08:15 08:21 09:15 Temperature 99.0 F Pulse Rate 92 76 Pulse Rate [ 78 Bracelet Form Coverer ] Respiratory 18 20 Rate Blood Pressure 186/95 156/91 O2 Sat by Pulse 96 96 Oximetry 12/19/19 12/19/19 12/19/19 13:00 17:02 19:30 Temperature 97.9 F Pulse Rate 72 62 77 Pulse Rate [ Bracelet Form Coverer ] Respiratory 18 18 18 Rate Blood Pressure 163/90 169/89 160/80 O2 Sat by Pulse 97 96 96 Oximetry 12/19/19 22:15 Temperature Pulse Rate 78 Pulse Rate [ Bracelet Form Coverer ] Respiratory 18 Rate Blood Pressure 169/88 O2 Sat by Pulse 96 Oximetry Chest Pain MDM - MDM Upon arrival the patient was placed into room 2. A thorough history and physical exam was performed. 12-lead EKG was performed which demonstrates no acute findings. Laboratory studies were conducted. The patient does have elevated blood pressures upon arrival. He was given a home blood pressure medications as he did not take them. He does not have any recurrence of his chest pain. Laboratory studies demonstrate a INR of 1.5. This is subtherapeutic. First troponin is negative. BNP is 212. Chest x-ray demonstrates no acute cardiopulmonary process. I discussed the results with the patient. I discussed diagnosis, differential and treatment options. The scout moran has not had any recurrence of his chest pain. I did recommend hospital admission records trend his troponins because of his risk factors. The patient understood this and agreed. I called and discussed the case with Dr. jean baptiste who accepted admission. I will place cardiology on consult. The patient is currently awaiting a bed on the floor Disposition Clinical Impression: Chest pain Disposition: ADMITTED IP TO THIS HOSP Condition: Stable Is patient prescribed a controlled substance at d/c from ED?: No Decision to Admit Reason: Admit from EC Decision Date: 12/19/19 Decision Time: 11:47
[2019-12-19 09:33] LABS: Basophils # (A) 0.1 k/uL (0-0.2); Basophils % (A) 1 %; Eosinophils # (A) 0.1 k/uL (0-0.7); Eosinophils % (A) 1 %; HCT 38.6 % (39.0-53.0); HGB 12.9 gm/dL (13.0-17.5); Lymphocytes # (A) 1.2 k/uL (1.0-4.8); Lymphocytes % (A) 12 %; MCH 28.1 pg (25.0-35.0); MCHC 33.5 g/dL (31.0-37.0); MCV 84.1 fL (80.0-100.0); Mean Platelet Volume 9.7; Monocytes # (A) 0.8 k/uL (0-1.0); Monocytes % (A) 8 %; Neutrophils # (A) 7.8 k/uL (1.3-7.7); Neutrophils % (A) 78 %; Platelet Count 211 k/uL (150-450); RDW 14.2 % (11.5-15.5)
[2019-12-19 09:45] LABS: INR 1.5 (<1.2); Partial Thromboplastin Time 27.3 sec (22.0-30.0); Prothrombin Time 15.2 sec (9.0-12.0)
[2019-12-19 09:48] LABS: ALT 20 U/L (4-49); AST 27 U/L (17-59); African American GFR (CKD) >90 (>60 ml/min/1.73 sqM); Alkaline Phosphatase 68 U/L (38-126); Anion Gap 11 mmol/L; Blood Urea Nitrogen 19 mg/dL (9-20); Calcium 9.1 mg/dL (8.4-10.2); Carbon Dioxide 25 mmol/L (22-30); Chloride 102 mmol/L (98-107); Glucose 136 mg/dL (74-99); Magnesium 1.7 mg/dL (1.6-2.3); Non-African American GFR(CKD) >90 (>60 ml/min/1.73 sqM); Potassium 3.7 mmol/L (3.5-5.1); Sodium 138 mmol/L (137-145); Total Bilirubin 0.4 mg/dL (0.2-1.3); Total Protein 7.2 g/dL (6.3-8.2)
--- NOTE | 2019-12-19 09:56 | XR ---
EXAMINATION TYPE: XR chest 2V DATE OF EXAM: 12/19/2019 COMPARISON: Prior chest x-ray 02/17/2018 HISTORY: Chest pain TECHNIQUE: Frontal and lateral views of the chest are obtained. FINDINGS: There is no focal air space opacity, pleural effusion, or pneumothorax seen. The cardiac silhouette size is within normal limits. There is eventration of right hemidiaphragm. Spinal curvatur e is suspected. The osseous structures are intact. IMPRESSION: No acute cardiopulmonary process.
[2019-12-19] MEDS ORDERED: NALOXONE 0.4 MG/ML 1 ML VIAL IV PRN (11:47)
[2019-12-19] MEDS ORDERED: NON FORMULARY DRUG (Potassium [Potassium] 99 MG) PO SCH (12:00)
[2019-12-19] MEDS ORDERED: MAGNESIUM OXIDE 400 MG TAB PO SCH (12:00)
[2019-12-19] MEDS ORDERED: CHLORTHALIDONE 25 MG TAB PO SCH (12:00)
[2019-12-19] MEDS ORDERED: LISINOPRIL 20 MG TAB PO SCH (12:00)
[2019-12-19] MEDS ORDERED: DILTIAZEM ORAL 30 MG TAB PO STA (12:55)
[2019-12-19] MEDS ORDERED: LISINOPRIL 20 MG TAB PO STA (12:55)
--- NOTE | 2019-12-19 12:57 | P.HPIM ---
History of Present Illness This is a pleasant 63 years old male with past medical history of BPH and hypertension, A. fib on Coumadin, sleep apnea on BiPAP. Presents because of chest pain that was started this morning, it was about 7-5/10 in severity, cent ral nonradiating associated with some dyspnea but no nausea vomiting, no sweating, his chest pain has resolved now and his breathing quietly. Also associated with some cough and little phlegm of unknown color by the patient He is morbidly obese and has sleep apnea and uses CPAP machine at night He denies smoking or illicit drugs, takes alcohol occasionally He follow-up with Dr. ybarra as an outpatient Patient states that he will didn't take his Cardizem and lisinopril this morning and he wanted to be given to him which was provided Vitas looks stable, blood pressure on the high side 156/91. Labs including CBC, BMP and liver enzymes are unremarkable, INR is 1.5. Troponins negative less than 0.012, BNP is 212. EKG: Normal sinus rhythm at 96 with persistent degree AV block, QTC 475, no significant ST-T changes, chest x-ray: No acute process by radiologist Review of Systems CONSTITUTIONAL: No fever, no malaise, no fatigue. HEENT: No recent visual problems or hearing problems. Denied any sore throat. CARDIOVASCULAR: No orthopnea, PND, no palpitations, no syncope. PULMONARY: No shortness of breath, no cough, no hemoptysis. GASTROINTESTINAL: No diarrhea, no nausea, no vomiting, no abdominal pain. Normoactive bowel sounds. NEUROLOGICAL: No headaches, no weakness, no numbness. HEMATOLOGICAL: Denies any bleeding or petechiae. GENITOURINARY: Denies any burning micturition, frequency, or urgency. MUSCULOSKELETAL/RHEUMATOLOGICAL: Denies any joint pain, swelling, or any muscle pain. ENDOCRINE: Denies any polyuria or polydipsia. Past Medical History Past Medical History: Hypertension, Prostate Disorder History of Any Multi-Drug Resistant Organisms: None Reported Past Surgical History: Orthopedic Surgery Additional Past Surgical History / Comment(s): eyes, nasal, L foot, lower back, R hand Past Psychological History: No Psychological Hx Reported Smoking Status: Former smoker Past Alcohol Use History: Rare Past Drug Use History: None Reported - Past Family History Mother Family Medical History: AFIB, Congestive Heart Failure (CHF), Hypertension, Myocardial Infarction ([place]) Medications and Allergies Home Medications Medication Instructions Recorded Confirmed Type Ascorbic Acid [Vitamin C] 1,000 mg PO DAILY 02/17/18 12/19/19 History Lisinopril 40 mg PO DAILY@1200 02/17/18 12/19/19 History Magnesium 200 mg PO DAILY 02/17/18 12/19/19 History Metoprolol Succinate [Toprol Xl] 100 mg PO HS 02/17/18 12/19/19 History Potassium 99 mg PO DAILY 02/17/18 12/19/19 History Vitamin B Complex 1 cap PO DAILY 02/17/18 12/19/19 History Chlorthalidone 25 mg PO DAILY #30 tab 02/19/18 12/19/19 Rx Diltiazem Oral [Cardizem*] 30 mg PO BID@0800,1800 12/19/19 12/19/19 History Multivitamins, Thera [Multivitamin 1 tab PO DAILY 12/19/19 12/19/19 History (formulary)] [place]'s Wort 150 mg PO DAILY 12/19/19 12/19/19 History Turmeric Root Extract [Turmeric] 500 mg PO DAILY 12/19/19 12/19/19 History Warfarin [Coumadin] 7.5 mg PO DAILY@1800 12/19/19 12/19/19 History Allergies Allergy/AdvReac Type Severity Reaction Status Date / Time No Known Allergies Allergy Verified 12/19/19 10:03 Physical Exam Vitals: Vital Signs Temp Pulse Pulse Resp BP Pulse Ox 12/19/19 09:15 76 20 156/91 96 12/19/19 08:21 99.0 F 92 18 186/95 96 12/19/19 08:15 78 Intake and Output 12/18/19 12/19/19 12/19/19 22:59 06:59 14:59 Other: Weight 227.25 kg -GENERAL: The patient is alert and oriented x3, not in any acute distress. obese HEENT: Pupils are round and equally reacting to light. EOMI. No scleral icterus. No conjunctival pallor. Normocephalic, atraumatic. No pharyngeal erythema. No thyromegaly. CARDIOVASCULAR: S1 and S2 present. No murmurs, rubs, or gallops. PULMONARY: Chest is clear to auscultation, no wheezing or crackles. ABDOMEN: Soft, nontender, nondistended, normoactive bowel sounds. No palpable organomegaly. MUSCULOSKELETAL: No joint swelling or deformity. EXTREMITIES: No cyanosis, clubbing, or pedal edema. NEUROLOGICAL: Gross neurological examination did not reveal any focal deficits. SKIN: No rashes. No petechiae Results CBC & Chem 7: 12/19/19 09:21 12/19/19 08:45 Labs: Abnormal Lab Results - Last 24 Hours (Table) 12/19/19 12/19/19 12/19/19 Range/Units 08:45 09:21 09:21 Hgb 12.9 L (13.0-17.5) gm/dL Hct 38.6 L (39.0-53.0) % Neutrophils # 7.8 H (1.3-7.7) k/uL PT 15.2 H (9.0-12.0) sec INR 1.5 H (<1.2) Glucose 136 H (74-99) mg/dL Assessment and Plan Assessment: Chest pain, rule out cardiac causes Hypertension Atrial fibrillation, paroxysmal. On Coumadin Sleep apnea on BiPAP Benign prostatic hypertrophy Morbid obesity Plan: this is a pleasant 64 years old male who presents because of chest pain. Do serial troponins and EKG, continue with warfarin for his history of A. fib. Monitor INR Labs and medication were reviewed.. Continue same treatment. Continue with symptomatic treatment. Resume home medication. Monitor lytes and vitals. DVT and GI prophylaxis. Further recommendations of the clinical course of the patient DVT prophylaxisOn CoumadinGI Prophylaxis: Pepcid PT/OT: Pending Prognosis is guarded
[2019-12-19 13:13] VITALS: RESP 18
[2019-12-19] MEDS ORDERED: WARFARIN 7.5 MG TAB PO SCH (18:00)
[2019-12-19] MEDS ORDERED: DILTIAZEM ORAL 30 MG TAB PO SCH (18:00)
[2019-12-19] MEDS ORDERED: FAMOTIDINE 20 MG/2 ML VIAL IV SCH (21:00)
[2019-12-19] MEDS ORDERED: METOPROLOL SUCCINATE (ER) 100 MG TAB.ER.24H PO SCH (21:00)
[2019-12-20 07:25] LABS: INR 1.5 (<1.2); Prothrombin Time 15.1 sec (9.0-12.0)
[2019-12-20] MEDS ORDERED: MULTIVITAMINS, THERA 1 EACH TAB PO SCH (09:00)
[2019-12-20] MEDS ORDERED: DOBUTamine DRIP for NUC MED 500 MG in DEXTROSE/WATER 1 250ML.BAG IV ONE (09:41)
[2019-12-20 10:49] LABS: Cholesterol 125 mg/dL (<200); HDL Cholesterol 27 mg/dL (40-60); LDL Cholesterol,Calculated 74 mg/dL (0-99); Triglycerides 119 mg/dL (<150)
--- NOTE | 2019-12-20 10:50 | P.CRDCN ---
History of Present Illness History of present illness: HISTORY OF PRESENTING ILLNESS This is a pleasant 64-year-old male past medical history significant for has mild atrial fibrillation on long-term anticoagulation, hypertension, obstructive sleep apnea and morbid obesity. He follows in the office with Dr. Maxwell. We have been asked to see in consultation for chest pain. He states he woke up at 4:30 in the morning with a heavy pressure sensation in the midsternal region. He got up and walked to the bathroom. The pain did not worsen with activity or exertion. He did notice some mild shortness of breath associated with this discomfort. There is no radiation to the arm, back, neck or jaw. The pain was not exacerbated by cough or deep inspiration. The pain persisted until approximately 8 AM when he decided to come to the emergency department for further evaluation. This time he arrived to the hospital his pain as well as started to subside. He has had no further symptoms of chest discomfort. DIAGNOSTICS EKG reveals sinus mechanism with first-degree AV block and poor R-wave progression. Telemetry tracings unremarkable for arrhythmia. Evidence of sinus bradycardia was. Chest xray negative for an acute cardiopulmonary process. Laboratory reviewed, WBC 10, hemoglobin 12.9, platelets 211, d-dimer 0.5, INR 1.5, sodium 138, potassium 3.7, creatinine 0.91, magnesium 1.7, NT proBNP 212 and cardiac enzymes negative 3. Current cardiac medications include Coumadin. REVIEW OF SYSTEMS At the time of my exam: CONSTITUTIONAL: Denies fever or chills. CARDIOVASCULAR: Denies chest pain, shortness of breath, orthopnea, PND or palpitations. RESPIRATORY: Denies cough. GASTROINTESTINAL: Denies abdominal pain, diarrhea, constipation, nausea or vomiting. MUSCULOSKELETAL: Denies myalgias. NEUROLOGIC: Denies numbness, tingling or weakness. ENDOCRINE: Denies fatigue, weight change, polydipsia or polyurina. GENITOURINARY: Denies burning, hematuria or urgency with micturation. HEMATOLOGIC: Denies history of anemia or bleeding. PHYSICAL EXAMINATION Blood pressure 169/78 heart rate 63 afebrile and maintaining oxygen saturation on room air. CONSTITUTIONAL: No apparent distress. Morbidly obese. HEENT: Head is normocephalic. Pupils are equal, round. Sclerae anicteric. Mucous membranes of the mouth are moist. No JVD. No carotid bruit. CHEST EXAMINATION: Lungs are clear to auscultation. No chest wall tenderness is noted on palpation or with deep breathing. HEART EXAMINATION: Regular rate and rhythm. S1, S2 heard. No murmurs, gallops or rub. ABDOMEN: Soft, nontender. Positive bowel sounds. EXTREMITIES: 2+ peripheral pulses, no lower extremity edema and no calf tenderness. NEUROLOGIC EXAMINATION: Patient is awake, alert and oriented x3. ASSESSMENT Chest pain, atypical. An acute coronary event has been ruled out. Paroxysmal atrial fibrillation on intermediate card tender anti-coagulation Hypertension Obstructive sleep apnea, uses c-pap regularly Morbid obesity, BMI 60 PLAN An acute event has been ruled out. D-dimer has been requested and is normal. Recommend proceeding with dobutamine stress echocardiogram to assess for stress induced ischemia. If stress test is normal he is stable to be discharged from a cardiac perspective. Follow up with Dr. Maxwell upon discharge. Thank you kindly for this consultation. Nurse Practitioner note has been reviewed, I agree with a documented findings and plan of care. Patient was seen and examined. Past Medical History Past Medical History: Atrial Fibrillation, Hypertension, Prostate Disorder History of Any Multi-Drug Resistant Organisms: None Reported Past Surgical History: Orthopedic Surgery Additional Past Surgical History / Comment(s): eyes, nasal, L foot, lower back, R hand Past Anesthesia/Blood Transfusion Reactions: No Reported Reaction Past Psychological History: No Psychological Hx Reported Smoking Status: Former smoker Past Alcohol Use History: Rare Past Drug Use History: None Reported - Past Family History Mother Family Medical History: AFIB, Congestive Heart Failure (CHF), Hypertension, Myocardial Infarction ([place]) Medications and Allergies Home Medications Medication Instructions Recorded Confirmed Type Ascorbic Acid [Vitamin C] 1,000 mg PO DAILY 02/17/18 12/19/19 History Lisinopril 40 mg PO DAILY@1200 02/17/18 12/19/19 History Magnesium 200 mg PO DAILY 02/17/18 12/19/19 History Metoprolol Succinate [Toprol Xl] 100 mg PO HS 02/17/18 12/19/19 History Potassium 99 mg PO DAILY 02/17/18 12/19/19 History Vitamin B Complex 1 cap PO DAILY 02/17/18 12/19/19 History Chlorthalidone 25 mg PO DAILY #30 tab 02/19/18 12/19/19 Rx Diltiazem Oral [Cardizem*] 30 mg PO BID@0800,1800 12/19/19 12/19/19 History Multivitamins, Thera [Multivitamin 1 tab PO DAILY 12/19/19 12/19/19 History (formulary)] [place]'s Wort 150 mg PO DAILY 12/19/19 12/19/19 History Turmeric Root Extract [Turmeric] 500 mg PO DAILY 12/19/19 12/19/19 History Warfarin [Coumadin] 7.5 mg PO DAILY@1800 12/19/19 12/19/19 History Allergies Allergy/AdvReac Type Severity Reaction Status Date / Time No Known Allergies Allergy Verified 12/19/19 10:03 Physical Exam Vitals: Vital Signs Temp Pulse Pulse Pulse Resp BP BP 12/20/19 07:25 98.3 F 63 18 12/20/19 04:00 60 66 18 154/81 12/20/19 00:00 98.9 F 60 72 18 160/81 12/19/19 23:52 80 18 148/69 12/19/19 22:15 78 18 169/88 12/19/19 19:30 77 18 160/80 12/19/19 17:02 97.9 F 62 18 169/89 12/19/19 13:00 72 18 163/90 12/19/19 09:15 76 20 156/91 12/19/19 08:21 99.0 F 92 18 186/95 12/19/19 08:15 78 BP Pulse Ox 12/20/19 07:25 169/78 98 12/20/19 04:00 98 12/20/19 00:00 97 12/19/19 23:52 96 12/19/19 22:15 96 12/19/19 19:30 96 12/19/19 17:02 96 12/19/19 13:00 97 12/19/19 09:15 96 12/19/19 08:21 96 12/19/19 08:15 Intake and Output 12/19/19 12/20/19 12/20/19 22:59 06:59 14:59 Other: # Voids 1 Weight 223.5 kg Results 12/19/19 09:21 12/19/19 08:45 Cardiac Enzymes 12/19/19 12/19/19 12/19/19 Range/Units 08:45 09:21 15:35 AST 27 (17-59) U/L Troponin I <0.012 <0.012 (0.000-0.034) ng/mL 12/19/19 Range/Units 21:24 AST (17-59) U/L Troponin I <0.012 (0.000-0.034) ng/mL Coagulation 12/19/19 12/20/19 Range/Units 09:21 07:01 PT 15.2 H 15.1 H (9.0-12.0) sec APTT 27.3 (22.0-30.0) sec CBC 12/19/19 Range/Units 09:21 WBC 10.0 (3.8-10.6) k/uL RBC 4.60 (4.30-5.90) m/uL Hgb 12.9 L (13.0-17.5) gm/dL Hct 38.6 L (39.0-53.0) % Plt Count 211 (150-450) k/uL Comprehensive Metabolic Panel 12/19/19 Range/Units 08:45 Sodium 138 (137-145) mmol/L Potassium 3.7 (3.5-5.1) mmol/L Chloride 102 (98-107) mmol/L Carbon Dioxide 25 (22-30) mmol/L BUN 19 (9-20) mg/dL Creatinine 0.91 (0.66-1.25) mg/dL Glucose 136 H (74-99) mg/dL Calcium 9.1 (8.4-10.2) mg/dL AST 27 (17-59) U/L ALT 20 (4-49) U/L Alkaline Phosphatase 68 (38-126) U/L Total Protein 7.2 (6.3-8.2) g/dL Albumin 4.0 (3.5-5.0) g/dL Current Medications Generic Name Dose Route Start Last Admin Trade Name Freq PRN Reason Stop Dose Admin Chlorthalidone 25 mg 12/19/19 12:00 12/19/19 13:07 [place] PO 25 mg DAILY CHERIE Administration Diltiazem HCl 30 mg 12/19/19 18:00 12/19/19 19:41 Cardizem Oral PO 30 mg BID@0800,1800 CHERIE Administration Famotidine 20 mg 12/19/19 21:00 12/19/19 22:20 Pepcid IV 20 mg Q12HR CHERIE Administration Lisinopril 40 mg 12/19/19 12:00 12/19/19 13:08 Zestril PO Not Given DAILY@1200 [facility] Magnesium Oxide 200 mg 12/19/19 12:00 12/19/19 13:08 Mag-Ox PO 200 mg DAILY CHERIE Administration Metoprolol Succinate 100 mg 12/19/19 21:00 12/19/19 22:19 Toprol Xl PO 100 mg HS CHERIE Administration Miscellaneous Information 0 each 12/19/19 12:07 Coumadin Per Pharmacy MISCELLANE DIRECTED PRN INR Multivitamins 1 each 12/20/19 09:00 Theragran PO DAILY [facility] Naloxone HCl 0.2 mg 12/19/19 11:47 Narcan IV Q2M PRN Opioid Reversal Warfarin Sodium 7.5 mg 12/19/19 18:00 12/19/19 19:41 Coumadin PO 7.5 mg DAILY@1800 [facility] Administration Protocol Intake and Output 12/19/19 12/20/19 12/20/19 22:59 06:59 14:59 Other: # Voids 1 Weight 223.5 kg 12/19/19 09:21 12/19/19 08:45
[2019-12-20 11:40] VITALS: BP 137/74; PULSE 69; TEMP 98.1
--- NOTE | 2019-12-20 13:31 | ECHOF ---
Referral Reason:cp, sob MEASUREMENTS -------- HEIGHT: 188.0 cm WEIGHT: 223.2 kg BP: RVIDd: 4.8 cm (< 3.3) IVSd: 1.0 cm (0.6 - 1.1) LVIDd: 5.7 cm (3.9 - 5.3) LVPWd: 1.4 cm (0.6 - 1.1) IVSs: 1.4 cm LVIDs: 4.0 cm LVPWs: 1.8 cm Ao Diam: 3.4 cm (2.0 - 3.7) AV Cusp: 2.1 cm (1.5 - 2.6) MV EXCURSION: 22.126 mm (> 18.000) MV EF SLOPE: 105 mm/s (70 - 150) EPSS: 1.0 cm MV E Abdiaziz: 0.57 m/s MV DecT: 158 ms MV A Abdiaziz: 0.65 m/s MV E/A Ratio: 0.88 FINDINGS -------- Sinus rhythm. Morbid Obesity LV size, wall thickness and systolic function are normal, with an EF greater than 55%. The left denny tricular size is normal. The right ventricle is moderate to severely enlarged. The left atrial size is normal. The right atrial size is normal. 5.0mg OF Lumason UTLIZED: 2 OR MORE WALL SEGMENTS NOT VISUALIZED. The aortic valve was not well visualized. The mitral valve was not well visualized. The tricuspid valve was not well visualized. Unable to estimate RVSP due to inadequate TR jet spect ral doppler profile. The pulmonic valve was not well visualized. The aortic root size is normal. There is no pericardial effusion. CONCLUSIONS -------- 1. Sinus rhythm. 2. Morbid Obesity 3. LV size, wall thickness and systolic function are normal, with an EF greater than 55%. 4. The left ventricular size is normal. 5. The right ventricle is moderate to severely enlarged. 6. The left atrial size is normal. 7. The right atrial size is normal. 8. 5.0mg OF Lumason UTLIZED: 2 OR MORE WALL SEGMENTS NOT VISUALIZED. 9. The aortic valve was not well visualized. 10. The mitral valve was not well visualized. 11. The tricuspid valve was not well visualized. 12. Unable to estimate RVSP due to inadequate TR jet spectral doppler profile. 13. The pulmonic valve was not well visualized. 14. The aortic root size is normal. 15. There is no pericardial effusion. VETERINARIAN ASSISTANT: Kristi Barger RDCS
--- NOTE | 2019-12-20 16:58 | P.DS ---
Providers Date of admission: 12/19/19 11:47 Attending physician: Gerard Vallejo MD Consults: 12/19/19 11:48 Consult Physician Urgent Consulting Provider: [facility] Consult Reason/Comments: acute chest pain, hx afib Do you want consulting provider notified?: Yes Primary care physician: Rafael aMys [place] Hospital Course: Dx: Chest pain, with negative cardiac stress test , chest pain completely resolved on discharge Hypertension Atrial fibrillation, paroxysmal. On Coumadin , subtherapeutic INR , coumadin dose increased on discharge Sleep apnea on BiPAP Benign prostatic hypertrophy Morbid obesity Hospital course This is a pleasant 63 years old male with past medical history of BPH and hypertension, A. fib on Coumadin, sleep apnea on BiPAP. Presents because of chest pain that was started tin the morning, it was about 7-5/10 in severity, central nonradiating associated with some dyspnea but no nausea vomiting, no sweating, his chest pain has resolved now and his breathing quietly. venereal disease investigator evaluated the pt and underwent stress test, call the staff and informed the test is negative and cardiology has cleared the pt for discharge. pt agrees to go home today on the day of discharge his chest pain is completely resolved, no dyspnea , no other s/s pt INR is 1.5 yesterday and today, D-Dimer is negative, coumadin dose is increased from 7.5 to 9 mg and cript is provided , pt was instructed to check his INR in 2 days and he agrees , he told he usually will go to office to check his INR in 2 day , and also he will call dr. heller office to make appointment in one week Pt was instructed about the problems and management plan and Pt verbalized understanding and acceptance , was at bed side and she agrees Pt is found stable and can be discharged to the community but needs follow up as outpt Pt instructed to follow up with her PCP in one week and she agrees. and instructed with cardiology f/u as above Discharge exam Gen.: Patient alert awake and oriented X 3, NOT IN DISTRESS CVS: s1-s2, RRR, no murmur CHEST:bilateral CTA, no wheezing or crepitation Abdomen: Soft, no tenderness, no distention, positive bowel sounds Extremities: No leg edema or induration time spent : more than 35 min Patient Condition at Discharge: Stable Plan - Discharge Summary Discharge Rx Participant: No New Discharge Prescriptions: New Warfarin [Coumadin] 9 mg PO DAILY #60 tab Continue Ascorbic Acid [Vitamin C] 1,000 mg PO DAILY Vitamin B Complex 1 cap PO DAILY Potassium 99 mg PO DAILY Magnesium 200 mg PO DAILY Metoprolol Succinate [Toprol Xl] 100 mg PO HS Lisinopril 40 mg PO DAILY@1200 Chlorthalidone 25 mg PO DAILY #30 tab Turmeric Root Extract [Turmeric] 500 mg PO DAILY Multivitamins, Thera [Multivitamin (formulary)] 1 tab PO DAILY [place]'s Wort 150 mg PO DAILY Diltiazem Oral [Cardizem*] 30 mg PO BID@0800,1800 Discontinued Warfarin [Coumadin] 7.5 mg PO DAILY@1800 Discharge Medication List Ascorbic Acid [Vitamin C] 1,000 mg PO DAILY 02/17/18 [History] Lisinopril 40 mg PO DAILY@1200 02/17/18 [History] Magnesium 200 mg PO DAILY 02/17/18 [History] Metoprolol Succinate [Toprol Xl] 100 mg PO HS 02/17/18 [History] Potassium 99 mg PO DAILY 02/17/18 [History] Vitamin B Complex 1 cap PO DAILY 02/17/18 [History] Chlorthalidone 25 mg PO DAILY #30 tab 02/19/18 [Rx] Diltiazem Oral [Cardizem*] 30 mg PO BID@0800,1800 12/19/19 [History] Multivitamins, Thera [Multivitamin (formulary)] 1 tab PO DAILY 12/19/19 [History] [place] Wort 150 mg PO DAILY 12/19/19 [History] Turmeric Root Extract [Turmeric] 500 mg PO DAILY 12/19/19 [History] Warfarin [Coumadin] 9 mg PO DAILY #60 tab 12/20/19 [Rx] Follow up Appointment(s)/Referral(s): Yuliana Heller MD [STAFF PHYSICIAN] - 1 Week Rafael Mays MD [Primary Care Provider] - 1-2 days Patient Instructions/Handouts: Chest Pain (DC) Activity/Diet/Wound Care/Special Instructions: Heart healthy diet Activity is limited till see your doctor Discharge Disposition: HOME SELF-CARE
[2019-12-20] MEDS ORDERED: WARFARIN 3 MG TAB PO ONE (18:00)
[2019-12-20] MEDS ORDERED: FAMOTIDINE 20 MG TAB PO SCH (21:00)
--- NOTE | 2019-12-21 10:47 | ECHOS ---
STRESS ECHOCARDIOGRAM DOBUTAMINE STRESS ECHO: LUMASON: 2 vial INDICATIONS: Chest pain. MEDICATIONS: BASELINE HEART RATE: 65 BASELINE BLOOD PRESSURE: 161/94 MAXIMUM HEART RATE: 134 MAXIMUM BLOOD PRESSURE: 209/90 85% MPHR: 134 100% MPHR: 158 METS: MAXIMUM STAGE REACHED: TOTAL EXERCISE TIME: CLINICAL INFORMATION: History of chest discomfort. Baseline heart rate 65 beats per minute. Baseline blood pressure 161/94 mmHg. Baseline 12-lead ECG shows sinus rhythm with normal ST segments. Patient received dobutamine per protocol for up to 20 mcg. This was a technically difficult study with suboptimal acoustic windows on account of the patient's body habitus. Lumason contrast was used. There was no ECG evidence for ischemia noted. Artifact noted on the ECG occasionally. Occasional premature beats. Occasional PVCs noted. No nonsustained ventricular tachycardia. Baseline 2D echo images with contrast revealed normal LV size and systolic function without segmental wall motion abnormalities. With dobutamine, there was excellent augmentation of overall LV contractility without development of any wall motion abnormalities. At recovery, regional global LV systolic function remained normal. IMPRESSION: No ECG or echocardiographic evidence for ischemia on this stress echo. MMODL / IJN: [id number] /
== END 2019-12-20 14:22 | disposition home or self-care (01) ==
LOC: EC 08:07 → 1SOBS 11:47
PROVIDERS: ADMIT Internal Medicine; ATTEND Internal Medicine
DX: R07.89 Other chest pain (principal); R06.00 Dyspnea, unspecified; R05 Cough; I10 Essential (primary) hypertension; I48.0 Paroxysmal atrial fibrillation; R79.1 Abnormal coagulation profile; G47.33 Obstructive sleep apnea (adult) (pediatric); Z99.89 Dependence on other enabling machines and devices; N40.0 Benign prostatic hyperplasia without lower urinary tract symptoms; E66.01 Morbid (severe) obesity due to excess calories; M79.89 Other specified soft tissue disorders; I44.0 Atrioventricular block, first degree; R00.1 Bradycardia, unspecified; Z79.899 Other long term (current) drug therapy; Z79.01 Long term (current) use of anticoagulants; Z98.890 Other specified postprocedural states; Z87.891 Personal history of nicotine dependence; Z68.44 Body mass index [BMI] 60.0-69.9, adult; Z82.49 Family history of ischemic heart disease and other diseases of the circulatory system
CPT/HCPCS: 93005 ×2; 96374; 99285; 36415; 93351; 85379; 83880; 80061; 80053; 83735; 84484; 85025; 85610 ×2; 85730; 71046; G0378 ×2; C8929; J1250; Q9950; 93306

== ENCOUNTER 2020-02-05 07:26 | Emergency (ER) | payer OTHER ==
[2020-02-05] MEDS ORDERED: ASPIRIN 81 MG PO STA (07:56)
[2020-02-05] MEDS ORDERED: DILTIAZEM ORAL 30 MG TAB PO STA (07:57)
--- NOTE | 2020-02-05 08:00 | ED ---
Arrhythmia/Palpitations HPI - General Chief Complaint: Arrhythmia/Palpitations Stated Complaint: AFIB Time Seen by Provider: 02/05/20 07:38 Source: patient Mode of arrival: wheelchair Limitations: physical limitation - History of Present Illness Initial Comments: 64yo male with history of HTN on 3 different medications, atrial fibrillation on coumadin, prostates disease, former smoker presents today for chief complaint of heart beating fast. Patient states that 3:30 AM he felt like his heart was pounding out of his chest he denies any pressure arm pain and jaw pain nausea or epigastric pain are any type of chest pain. Patient states that he simply felt like it was beating very fast. Denies dyspnea, leg swelling or difficulty lying flat. Patient states then between 3:30 AM and this morning he has gone to the bathroom to urinate every 30 minutes. Patient has history of prostate disease. Patient denies any current palpitations Patient states he had a chemical induced stress test 1-2 months ago, which revealed no abnormalities to his knowledge, denies previous heart cauterizations, or heart surgeries. Patient has no other complaints on arrival he appears we. - Related Data Home Medications Medication Instructions Recorded Confirmed Ascorbic Acid [Vitamin C] 1,000 mg PO DAILY 02/17/18 12/19/19 Lisinopril 40 mg PO DAILY@1200 02/17/18 12/19/19 Magnesium 200 mg PO DAILY 02/17/18 12/19/19 Metoprolol Succinate [Toprol Xl] 100 mg PO HS 02/17/18 12/19/19 Potassium 99 mg PO DAILY 02/17/18 12/19/19 Vitamin B Complex 1 cap PO DAILY 02/17/18 12/19/19 Diltiazem Oral [Cardizem*] 30 mg PO BID@0800,1800 12/19/19 12/19/19 Multivitamins, Thera [Multivitamin 1 tab PO DAILY 12/19/19 12/19/19 (formulary)] Brigid's Wort 150 mg PO DAILY 12/19/19 12/19/19 Turmeric Root Extract [Turmeric] 500 mg PO DAILY 12/19/19 12/19/19 Previous Rx's Medication Instructions Recorded Chlorthalidone 25 mg PO DAILY #30 tab 02/19/18 Warfarin [Coumadin] 9 mg PO DAILY #60 tab 12/20/19 Allergies Allergy/AdvReac Type Severity Reaction Status Date / Time No Known Allergies Allergy Verified 02/05/20 07:34 Review of Systems ROS Statement: Those systems with pertinent positive or pertinent negative responses have been documented in the HPI. ROS Other: All systems not noted in ROS Statement are negative. Past Medical History Past Medical History: Hypertension, Prostate Disorder Additional Past Medical History / Comment(s): afib History of Any Multi-Drug Resistant Organisms: None Reported Past Surgical History: Orthopedic Surgery Additional Past Surgical History / Comment(s): eyes, nasal, L foot, lower back, R hand Past Anesthesia/Blood Transfusion Reactions: No Reported Reaction Past Psychological History: No Psychological Hx Reported Smoking Status: Former smoker Past Alcohol Use History: Rare Past Drug Use History: None Reported - Past Family History Mother Family Medical History: AFIB, Congestive Heart Failure (CHF), Hypertension, Myocardial Infarction (MA) General Exam - General Exam Comments Initial Comments: General: The patient is awake and alert, in no distress Eye: +3 mm pupils are equal, round and reactive to light, extra-ocular movements are intact. No nystagmus. There is normal conjunctiva bilaterally. No signs of icterus. Ears, nose, mouth and throat: There are moist mucous membranes and no oral lesions. Neck: The neck is supple, there is no tenderness or JVD. Cardiovascular: There is a regular rate and rhythm. No murmur, rub or gallop is appreciated. Respiratory: Lungs are clear to auscultation, respirations are non-labored, breath sounds are equal. No wheezes, stridor, rales, or rhonchi. Gastrointestinal: Soft, non-distended, non-tender abdomen without masses or organomegaly noted. There is no rebound or guarding present. Musculoskeletal: Normal ROM, no tenderness. Strength 5/5. Sensation intact. Radial pulses equal bilaterally 2+. Neurological: A&O x 3. CN II-XII intact grossly, There are no obvious motor or sensory deficits. Coordination appears grossly intact. Speech is normal. Skin: Skin is warm and dry and no rashes or lesions are noted. Psychiatric: Cooperative, appropriate mood & affect, normal judgment. Limitations: physical limitation Course Vital Signs 02/05/20 02/05/20 02/05/20 07:32 08:02 08:57 Temperature 98.5 F Pulse Rate 97 80 73 Respiratory 20 Rate Blood Pressure 211/111 179/91 O2 Sat by Pulse 97 97 Oximetry EKG Findings - EKG Comments: EKG Findings:: Ventricular rate 87 beats minute, LA interval 208 ms, QR roman catholic 96 ms, QT/QTC 382/459ms. This is normal sinus rhythm low voltage QRS, no ST elevation or depression noted Medical Decision Making - Medical Decision Making 64-year-old male presenting today for chief complaint of episode of palpitations at 3:30 AM. Patient also admits to increased frequency of urination. Patient has moderately elevated glucose of glucose or ketones in the urine. Patient's no signs of urinary tract infection by history of prostate disease as well as use of CPAP at night for sleep apnea. Patient denied any chest pressure or chest pain. Patient denies any shortness of breath. Patient denies any diaphoresis upon arrival he appeared well troponin negative EKG no acute findings. Patient is therapeutic on his Coumadin. Patient has no leg swelling. CXR clear, recently (-) chemical stress test. Patient will be discharged with PCP and cardiology f/u. Patient BP is noted to be high but he has known hypertension with multiple BP medications. Patient was instructed to take additional dosing at home. He is agreeable to discharge with outpatient f/u. Return parameters were discussed and case was discussed in detail with Dr. Woodson who reviewed EKG who is agreeable with care plan. - Lab Data Result diagrams: 02/05/20 08:20 02/05/20 08:20 Lab Results 02/05/20 02/05/20 02/05/20 Range/Units 08:20 08:20 08:20 WBC 12.4 H (3.8-10.6) k/uL RBC 4.96 (4.30-5.90) m/uL Hgb 13.9 (13.0-17.5) gm/dL Hct 41.6 (39.0-53.0) % MCV 83.7 (80.0-100.0) fL MCH 28.0 (25.0-35.0) pg MCHC 33.5 (31.0-37.0) g/dL RDW 14.4 (11.5-15.5) % Plt Count 243 (150-450) k/uL Neutrophils % 79 % Lymphocytes % 11 % Monocytes % 7 % Eosinophils % 1 % Basophils % 1 % Neutrophils # 9.8 H (1.3-7.7) k/uL Lymphocytes # 1.3 (1.0-4.8) k/uL Monocytes # 0.9 (0-1.0) k/uL Eosinophils # 0.2 (0-0.7) k/uL Basophils # 0.1 (0-0.2) k/uL PT (9.0-12.0) sec INR (<1.2) APTT (22.0-30.0) sec Sodium 140 (137-145) mmol/L Potassium 3.7 (3.5-5.1) mmol/L Chloride 104 (98-107) mmol/L Carbon Dioxide 23 (22-30) mmol/L Anion Gap 13 mmol/L BUN 22 H (9-20) mg/dL Creatinine 0.96 (0.66-1.25) mg/dL Est GFR (CKD-EPI)AfAm >90 (>60 ml/min/1.73 sqM) Est GFR (CKD-EPI)NonAf 85 (>60 ml/min/1.73 sqM) Glucose 148 H (74-99) mg/dL Calcium 9.2 (8.4-10.2) mg/dL Magnesium 1.7 (1.6-2.3) mg/dL Total Bilirubin 0.3 (0.2-1.3) mg/dL AST 25 (17-59) U/L ALT 20 (4-49) U/L Alkaline Phosphatase 73 (38-126) U/L Troponin I <0.012 (0.000-0.034) ng/mL Total Protein 7.8 (6.3-8.2) g/dL Albumin 4.3 (3.5-5.0) g/dL TSH 1.280 (0.465-4.680) mIU/L Urine Color Urine Appearance (Clear) Urine pH (5.0-8.0) Ur Specific [place] (1.001-1.035) Urine Protein (Negative) Urine Glucose (UA) (Negative) Urine Ketones (Negative) Urine Blood (Negative) Urine Nitrite (Negative) Urine Bilirubin (Negative) Urine Urobilinogen (<2.0) mg/dL Ur Leukocyte Esterase (Negative) 02/05/20 02/05/20 Range/Units 09:00 09:30 WBC (3.8-10.6) k/uL RBC (4.30-5.90) m/uL Hgb (13.0-17.5) gm/dL Hct (39.0-53.0) % MCV (80.0-100.0) fL MCH (25.0-35.0) pg MCHC (31.0-37.0) g/dL RDW (11.5-15.5) % Plt Count (150-450) k/uL Neutrophils % % Lymphocytes % % Monocytes % % Eosinophils % % Basophils % % Neutrophils # (1.3-7.7) k/uL Lymphocytes # (1.0-4.8) k/uL Monocytes # (0-1.0) k/uL Eosinophils # (0-0.7) k/uL Basophils # (0-0.2) k/uL PT 19.0 H (9.0-12.0) sec INR 2.0 H (<1.2) APTT 29.9 (22.0-30.0) sec Sodium (137-145) mmol/L Potassium (3.5-5.1) mmol/L Chloride (98-107) mmol/L Carbon Dioxide (22-30) mmol/L Anion Gap mmol/L BUN (9-20) mg/dL Creatinine (0.66-1.25) mg/dL Est GFR (CKD-EPI)AfAm (>60 ml/min/1.73 sqM) Est GFR (CKD-EPI)NonAf (>60 ml/min/1.73 sqM) Glucose (74-99) mg/dL Calcium (8.4-10.2) mg/dL Magnesium (1.6-2.3) mg/dL Total Bilirubin (0.2-1.3) mg/dL AST (17-59) U/L ALT (4-49) U/L Alkaline Phosphatase (38-126) U/L Troponin I (0.000-0.034) ng/mL Total Protein (6.3-8.2) g/dL Albumin (3.5-5.0) g/dL TSH (0.465-4.680) mIU/L Urine Color Yellow Urine Appearance Clear (Clear) Urine pH 6.5 (5.0-8.0) Ur Specific [place] 1.015 (1.001-1.035) Urine Protein Negative (Negative) Urine Glucose (UA) Negative (Negative) Urine Ketones Negative (Negative) Urine Blood Negative (Negative) Urine Nitrite Negative (Negative) Urine Bilirubin Negative (Negative) Urine Urobilinogen <2.0 (<2.0) mg/dL Ur Leukocyte Esterase Negative (Negative) Disposition Clinical Impression: Heart palpitations, Increased urinary frequency Disposition: HOME SELF-CARE Condition: Good Instructions (If sedation given, give patient instructions): Heart Palpitations (ED) Additional Instructions: Please use medication as discussed. Please follow-up with family doctor in the next 2 days, cardiology in next week. Please return to emergency room if the symptoms increase or worsen or for any other concerns. Is patient prescribed a controlled substance at d/c from ED?: No Referrals: Rafael Mays MD [Primary Care Provider] - 1-2 days Yuliana Maxwell MD [Family Provider] - 1-2 days Jonnie Reynolds MD [STAFF PHYSICIAN] - 1-2 days Time of Disposition: 09:57 Decision to Admit Reason: Admit from EC
[2020-02-05 08:28] LABS: Basophils # (A) 0.1 k/uL (0-0.2); Basophils % (A) 1 %; Eosinophils # (A) 0.2 k/uL (0-0.7); Eosinophils % (A) 1 %; HCT 41.6 % (39.0-53.0); HGB 13.9 gm/dL (13.0-17.5); Lymphocytes # (A) 1.3 k/uL (1.0-4.8); Lymphocytes % (A) 11 %; MCHC 33.5 g/dL (31.0-37.0); MCV 83.7 fL (80.0-100.0); Mean Platelet Volume 9.3; Monocytes # (A) 0.9 k/uL (0-1.0); Monocytes % (A) 7 %; Neutrophils # (A) 9.8 k/uL (1.3-7.7); Neutrophils % (A) 79 %; Platelet Count 243 k/uL (150-450); RBC 4.96 m/uL (4.30-5.90); RDW 14.4 % (11.5-15.5); WBC 12.4 k/uL (3.8-10.6)
[2020-02-05 08:45] LABS: ALT 20 U/L (4-49); AST 25 U/L (17-59); African American GFR (CKD) >90 (>60 ml/min/1.73 sqM); Albumin 4.3 g/dL (3.5-5.0); Alkaline Phosphatase 73 U/L (38-126); Anion Gap 13 mmol/L; Blood Urea Nitrogen 22 mg/dL (9-20); Calcium 9.2 mg/dL (8.4-10.2); Carbon Dioxide 23 mmol/L (22-30); Chloride 104 mmol/L (98-107); Glucose 148 mg/dL (74-99); Magnesium 1.7 mg/dL (1.6-2.3); Non-African American GFR(CKD) 85 (>60 ml/min/1.73 sqM); Potassium 3.7 mmol/L (3.5-5.1); Sodium 140 mmol/L (137-145); Total Bilirubin 0.3 mg/dL (0.2-1.3); Total Protein 7.8 g/dL (6.3-8.2)
--- NOTE | 2020-02-05 08:52 | XR ---
EXAMINATION TYPE: XR chest 2V DATE OF EXAM: 02/05/2020 COMPARISON: 12/19/2019 HISTORY: Dysrhythmia TECHNIQUE: Frontal and lateral views of the chest are obtained. FINDINGS: There is no focal air space opacity, pleural effusion, or pneumothorax seen. Eventration o f the right hemidiaphragm is again noted. The cardiac silhouette size is upper limits of normal size as seen on the prior. Moderate multilevel degenerative change of the spine. The osseous structures a re intact. IMPRESSION: No acute cardiopulmonary process.
[2020-02-05] MEDS ORDERED: CHLORTHALIDONE 25 MG TAB PO SCH (09:00)
[2020-02-05 09:22] LABS: Partial Thromboplastin Time 29.9 sec (22.0-30.0)
[2020-02-05 09:38] LABS: Appearance,Urine Clear (Clear); Bilirubin,Urine Negative (Negative); Blood,Urine Negative (Negative); Color,Urine Yellow; Glucose,Urine (UA) Negative (Negative); Ketones,Urine Negative (Negative); Leukocyte Esterase,Urine Negative (Negative); Nitrite,Urine Negative (Negative); PH, Urine 6.5 (5.0-8.0); Protein,Urine Negative (Negative); Specific Gravity,Urine 1.015 (1.001-1.035); Urobilinogen,Urine <2.0 mg/dL (<2.0)
[2020-02-05 10:27] VITALS: BP 172/91; PULSE 72; RESP 22; TEMP 99.1
== END 2020-02-05 10:34 | disposition home or self-care (01) ==
LOC: EC 07:26
DX: R00.2 Palpitations (principal); R35.0 Frequency of micturition; R81 Glycosuria; R82.4 Acetonuria; G47.30 Sleep apnea, unspecified; I48.91 Unspecified atrial fibrillation; I10 Essential (primary) hypertension; Z87.891 Personal history of nicotine dependence; Z79.01 Long term (current) use of anticoagulants; Z79.899 Other long term (current) drug therapy; Z99.89 Dependence on other enabling machines and devices; Z82.49 Family history of ischemic heart disease and other diseases of the circulatory system
CPT/HCPCS: 36415; 71046; 80053; 81003; 83735; 84443; 84484; 85025; 85610; 85730; 93005; 99285

== ENCOUNTER 2020-02-07 00:02 | Emergency (ER) | payer OTHER ==
[2020-02-07 00:10] VITALS: RESP 20; TEMP 99.1
--- NOTE | 2020-02-07 00:28 | ED ---
Arrhythmia/Palpitations HPI - General Chief Complaint: Arrhythmia/Palpitations Stated Complaint: Chest Pain Time Seen by Provider: 02/07/20 00:11 Source: patient, family Mode of arrival: ambulatory Limitations: no limitations - History of Present Illness Initial Comments: This patient is a 64-year-old man who presents to be evaluated for palpitations and substernal chest pressure. He states that this is been coming on since a little after 3 PM. He states he was not exerting himself at the time. He states he was following the heart rate and blood pressure with his home monitor and then became concerned tonight. He states that he did take doses of his medication prior to coming in and he does feel a little better now. MD Complaint: palpitations Onset/Timin -: hour(s) Context: occurred during rest Arrhythmia History: atrial fibrillation Associated Symptoms: chest pain - Related Data Home Medications Medication Instructions Recorded Confirmed Ascorbic Acid [Vitamin C] 1,000 mg PO DAILY 02/17/18 12/19/19 Lisinopril 40 mg PO DAILY@1200 02/17/18 12/19/19 Magnesium 200 mg PO DAILY 02/17/18 12/19/19 Metoprolol Succinate [Toprol Xl] 100 mg PO HS 02/17/18 12/19/19 Potassium 99 mg PO DAILY 02/17/18 12/19/19 Vitamin B Complex 1 cap PO DAILY 02/17/18 12/19/19 Diltiazem Oral [Cardizem*] 30 mg PO BID@0800,1800 12/19/19 12/19/19 Multivitamins, Thera [Multivitamin 1 tab PO DAILY 12/19/19 12/19/19 (formulary)] Belcourt's Wort 150 mg PO DAILY 12/19/19 12/19/19 Turmeric Root Extract [Turmeric] 500 mg PO DAILY 12/19/19 12/19/19 Previous Rx's Medication Instructions Recorded Chlorthalidone 25 mg PO DAILY #30 tab 02/19/18 Warfarin [Coumadin] 9 mg PO DAILY #60 tab 12/20/19 Allergies Allergy/AdvReac Type Severity Reaction Status Date / Time No Known Allergies Allergy Verified 02/07/20 00:10 Review of Systems ROS Statement: Those systems with pertinent positive or pertinent negative responses have been documented in the HPI. ROS Other: All systems not noted in ROS Statement are negative. Constitutional: Denies: fever, chills Respiratory: Denies: cough, dyspnea Cardiovascular: Reports: chest pain, palpitations. Denies: orthopnea, edema, syncope Gastrointestinal: Denies: abdominal pain, vomiting, diarrhea Genitourinary: Denies: dysuria Musculoskeletal: Denies: back pain Skin: Denies: rash Neurological: Denies: headache, weakness, numbness Past Medical History Past Medical History: Atrial Fibrillation, Hypertension, Prostate Disorder Additional Past Medical History / Comment(s): afib History of Any Multi-Drug Resistant Organisms: None Reported Past Surgical History: Orthopedic Surgery Additional Past Surgical History / Comment(s): eyes, nasal, L foot, lower back, R hand Past Anesthesia/Blood Transfusion Reactions: No Reported Reaction Past Psychological History: No Psychological Hx Reported Smoking Status: Former smoker Past Alcohol Use History: Rare Past Drug Use History: None Reported - Past Family History Mother Family Medical History: AFIB, Congestive Heart Failure (CHF), Hypertension, Myocardial Infarction (MA) General Exam Limitations: no limitations General appearance: alert, in no apparent distress Head exam: Present: atraumatic, normocephalic Eye exam: Present: normal appearance. Absent: scleral icterus, conjunctival i njection ENT exam: Present: normal oropharynx Neck exam: Present: normal inspection. Absent: tenderness, meningismus, full ROM Respiratory exam: Present: normal lung sounds bilaterally. Absent: respiratory distress, wheezes, rales, rhonchi, stridor Cardiovascular Exam: Present: regular rate, normal rhythm, normal heart sounds. Absent: systolic murmur, diastolic murmur, rubs, gallop GI/Abdominal exam: Present: soft. Absent: distended, tenderness, guarding, rebound, rigid, mass Extremities exam: Present: normal inspection, normal capillary refill. Absent: pedal edema, calf tenderness Back exam: Present: normal inspection. Absent: CVA tenderness (R), CVA tenderness (L) Neurological exam: Present: alert Skin exam: Present: warm, dry, intact, normal color. Absent: rash Course Vital Signs 02/07/20 02/07/20 02/07/20 00:06 00:28 00:30 Temperature 99.1 F Pulse Rate 89 72 Respiratory 20 Rate Blood Pressure 180/77 165/100 165/100 O2 Sat by Pulse 96 96 Oximetry 02/07/20 01:30 Temperature Pulse Rate 74 Respiratory 20 Rate Blood Pressure 159/87 O2 Sat by Pulse 96 Oximetry EKG Findings - EKG Results: EKG: interpreted by CHERRY MCNULTY, sinus rhythm (Rate 82 bpm), normal axis, normal QRS, normal ST/T, no acute changes Medical Decision Making - Medical Decision Making Patient's 64-year-old man with history of atrial fibrillation, presenting with palpitations and chest pain. Patient stated that his symptoms had resolved after he had taken his medications. I reviewed the studies with him and did recommend overnight admission for serial cardiac enzymes and telemetry monitoring. The patient states that he understands that that does give additi onal margin of safety but he is feeling somewhat better and would like to go home. He does agree to return should any symptoms recur or new symptoms develop. He will follow with his physician. Return parameters discussed. - Lab Data Result diagrams: 02/07/20 00:25 02/07/20 00:25 Lab Results 02/07/20 02/07/20 02/07/20 Range/Units 00:25 00:25 00:25 WBC 12.8 H (3.8-10.6) k/uL RBC 4.83 (4.30-5.90) m/uL Hgb 13.5 (13.0-17.5) gm/dL Hct 40.2 (39.0-53.0) % MCV 83.3 (80.0-100.0) fL MCH 27.9 (25.0-35.0) pg MCHC 33.5 (31.0-37.0) g/dL RDW 14.5 (11.5-15.5) % Plt Count 230 (150-450) k/uL Neutrophils % 74 % Lymphocytes % 14 % Monocytes % 8 % Eosinophils % 2 % Basophils % 1 % Neutrophils # 9.4 H (1.3-7.7) k/uL Lymphocytes # 1.7 (1.0-4.8) k/uL Monocytes # 1.1 H (0-1.0) k/uL Eosinophils # 0.3 (0-0.7) k/uL Basophils # 0.1 (0-0.2) k/uL PT 16.1 H (9.0-12.0) sec INR 1.6 H (<1.2) APTT 28.6 (22.0-30.0) sec Sodium 140 (137-145) mmol/L Potassium 3.5 (3.5-5.1) mmol/L Chloride 103 (98-107) mmol/L Carbon Dioxide 24 (22-30) mmol/L Anion Gap 13 mmol/L BUN 25 H (9-20) mg/dL Creatinine 1.08 (0.66-1.25) mg/dL Est GFR (CKD-EPI)AfAm 85 (>60 ml/min/1.73 sqM) Est GFR (CKD-EPI)NonAf 73 (>60 ml/min/1.73 sqM) Glucose 127 H (74-99) mg/dL Calcium 9.1 (8.4-10.2) mg/dL Magnesium 2.0 (1.6-2.3) mg/dL Total Bilirubin 0.3 (0.2-1.3) mg/dL AST 26 (17-59) U/L ALT 21 (4-49) U/L Alkaline Phosphatase 67 (38-126) U/L Troponin I (0.000-0.034) ng/mL Total Protein 7.9 (6.3-8.2) g/dL Albumin 4.4 (3.5-5.0) g/dL 02/07/20 Range/Units 00:25 WBC (3.8-10.6) k/uL RBC (4.30-5.90) m/uL Hgb (13.0-17.5) gm/dL Hct (39.0-53.0) % MCV (80.0-100.0) fL MCH (25.0-35.0) pg MCHC (31.0-37.0) g/dL RDW (11.5-15.5) % Plt Count (150-450) k/uL Neutrophils % % Lymphocytes % % Monocytes % % Eosinophils % % Basophils % % Neutrophils # (1.3-7.7) k/uL Lymphocytes # (1.0-4.8) k/uL Monocytes # (0-1.0) k/uL Eosinophils # (0-0.7) k/uL Basophils # (0-0.2) k/uL PT (9.0-12.0) sec INR (<1.2) APTT (22.0-30.0) sec Sodium (137-145) mmol/L Potassium (3.5-5.1) mmol/L Chloride (98-107) mmol/L Carbon Dioxide (22-30) mmol/L Anion Gap mmol/L BUN (9-20) mg/dL Creatinine (0.66-1.25) mg/dL Est GFR (CKD-EPI)AfAm (>60 ml/min/1.73 sqM) Est GFR (CKD-EPI)NonAf (>60 ml/min/1.73 sqM) Glucose (74-99) mg/dL Calcium (8.4-10.2) mg/dL Magnesium (1.6-2.3) mg/dL Total Bilirubin (0.2-1.3) mg/dL AST (17-59) U/L ALT (4-49) U/L Alkaline Phosphatase (38-126) U/L Troponin I <0.012 (0.000-0.034) ng/mL Total Protein (6.3-8.2) g/dL Albumin (3.5-5.0) g/dL Disposition Clinical Impression: Chest pain, Heart palpitations Disposition: HOME SELF-CARE Condition: Good Instructions (If sedation given, give patient instructions): Heart Palpitations (ED) Is patient prescribed a controlled substance at d/c from ED?: No Referrals: Rafael Mays MD [Primary Care Provider] - 1-2 days
[2020-02-07 00:36] LABS: Basophils # (A) 0.1 k/uL (0-0.2); Basophils % (A) 1 %; Eosinophils # (A) 0.3 k/uL (0-0.7); Eosinophils % (A) 2 %; HCT 40.2 % (39.0-53.0); HGB 13.5 gm/dL (13.0-17.5); Lymphocytes # (A) 1.7 k/uL (1.0-4.8); Lymphocytes % (A) 14 %; MCH 27.9 pg (25.0-35.0); MCHC 33.5 g/dL (31.0-37.0); MCV 83.3 fL (80.0-100.0); Mean Platelet Volume 9.2; Monocytes # (A) 1.1 k/uL (0-1.0); Monocytes % (A) 8 %; Neutrophils # (A) 9.4 k/uL (1.3-7.7); Neutrophils % (A) 74 %; Platelet Count 230 k/uL (150-450); RBC 4.83 m/uL (4.30-5.90); RDW 14.5 % (11.5-15.5); WBC 12.8 k/uL (3.8-10.6)
[2020-02-07 00:44] LABS: Albumin 4.4 g/dL (3.5-5.0); Calcium 9.1 mg/dL (8.4-10.2); Potassium 3.5 mmol/L (3.5-5.1); Total Bilirubin 0.3 mg/dL (0.2-1.3); Total Protein 7.9 g/dL (6.3-8.2)
--- NOTE | 2020-02-07 00:47 | XR ---
EXAMINATION TYPE: XR chest 1V portable DATE OF EXAM: 02/07/2020 COMPARISON: 02/05/2020 HISTORY: Dysrhythmia TECHNIQUE: FINDINGS: Heart and mediastinum are normal. Lungs are clear. Diaphragm is normal. Bony thorax appears normal. There are chest leads. IMPRESSION: Normal chest. No change.
[2020-02-07 00:54] LABS: INR 1.6 (<1.2); Partial Thromboplastin Time 28.6 sec (22.0-30.0); Prothrombin Time 16.1 sec (9.0-12.0)
[2020-02-07 02:16] VITALS: BP 155/94; PULSE 79
== END 2020-02-07 02:16 | disposition home or self-care (01) ==
LOC: EC 00:02
DX: R00.2 Palpitations (principal); R07.89 Other chest pain; I48.91 Unspecified atrial fibrillation; I10 Essential (primary) hypertension; Z87.891 Personal history of nicotine dependence; Z79.899 Other long term (current) drug therapy; Z82.49 Family history of ischemic heart disease and other diseases of the circulatory system
CPT/HCPCS: 36415; 71045; 80053; 83735; 84484; 85025; 85610; 85730; 93005; 99285

== ENCOUNTER → 2020-06-11 | Outpatient (CLI) | payer OTHER ==
--- NOTE | 2020-06-11 17:00 | PN ---
PROGRESS NOTE Herb is 65, with severe HORACE, AHI of 92, in addition to history of atrial fibrillation and morbid obesity. Coming in for an annual check regarding his HORACE. He is quite debilitated especially with gait mobility and he walks around with a walker. He has gained weight around 9 pounds since his last evaluation. Nevertheless, his BiPAP is very much effective in eliminating his obstructive sleep apnea. He is on a BiPAP pressure of 16/12. He is being treated successfully and he is extremely compliant wearing his BiPAP machine every night and his BiPAP use for more than 4 hours is 100%. He has been averaging around 8.3 hours of BiPAP use per night with a leak of 6 L/minute, tidal volume of 740 and respiratory rate of 16 with a minute ventilation of 12 L/minute. His AHI is down to 0.9. He is using a Dream Wear large-sized under-the- nose fullface mask. No major hypersomnia or sleepiness during the day. No tiredness or fatigue. He does not fall asleep while performing day-to-day activities. REVIEW OF SYSTEMS: A 14-point review of system was done and the positive findings are mentioned in history of present illness. BP is 180/93, pulse 88, respirations 16, temperature is 97.8, weight is 492, height is 6,4. Saturation 97% on room air. GENERAL APPEARANCE: Morbidly obese, calm, comfortable. No acute distress. HEAD: Atraumatic, normocephalic. NECK: Supple, there is no JVD. No goiter or neck mass, Mallampati class IV. LUNGS: Clear to auscultation. HEART: Heart sounds are irregular. Positive S1, S2. No S3, S4. No murmurs. ABDOMEN: Obese, soft, nontender. Organs cannot be adequately palpated. No ascites. EXTREMITIES: Trace edema +1. No cyanosis or clubbing. MUSCULOSKELETAL: Exam, the patient also walks from with a help of a walker. Gait is abnormal due to chronic arthritis. NEUROLOGIC: Awake and alert, there is no focal neurological deficit. IMPRESSION: 1. Severe obstructive sleep apnea, AHI of 92 continues to be successfully treated. He has a VPAP auto, adjust at the pressure of 16/12. 2. Hypersomnia recovered. 3. Obesity with an interval weight gain in the order of 9 pounds, current weight is up to 492. 4. Hypertension. Blood pressure continues to be poorly controlled. 5. Paroxysmal atrial fibrillation. PLAN: 1. Continue BiPAP therapy. 2. No need for change in settings. 3. Continued Dream Wear large-sized [id number] fullface mask. 4. Implement good sleep hygiene. 5. Weight loss. 6. Optimize sleep hygiene measures. 7. Refills on his supplies were given. See me back in a year's time in followup. MMODL / IJN: [id number] /
== END | disposition home or self-care (01) ==
LOC: SLEEP 15:15
PROVIDERS: ATTEND Internal Medicine Critical Care Medicine
DX: G47.33 Obstructive sleep apnea (adult) (pediatric) (principal); E66.9 Obesity, unspecified; I10 Essential (primary) hypertension; I48.0 Paroxysmal atrial fibrillation; Z99.89 Dependence on other enabling machines and devices

== ENCOUNTER 2020-12-17 16:25 | Inpatient (IN) | payer OTHER ==
--- NOTE | 2020-12-17 16:47 | ED ---
General Adult HPI - General Chief complaint: Arrhythmia/Palpitations Stated complaint: chest pressure Time Seen by Provider: 12/17/20 16:30 Source: patient, RN notes reviewed, old records reviewed Mode of arrival: wheelchair Limitations: no limitations - History of Present Illness Initial comments: 65-year-old male history of atrial fibrillation presents for evaluation of palpitations and chest tightness. Symptoms have been ongoing for the past sever al days. He states he's had a heart rate up to 130. He denies associated nausea vomiting or diaphoresis. He denies cough or dyspnea. He is currently on Coumadin. He states he took aspirin prior to arrival. He has no known coronary artery disease. - Related Data Home Medications Medication Instructions Recorded Confirmed Ascorbic Acid [Vitamin C] 1,000 mg PO DAILY 02/17/18 12/19/19 Magnesium 200 mg PO DAILY 02/17/18 12/19/19 Metoprolol Succinate [Toprol Xl] 100 mg PO HS 02/17/18 12/19/19 Potassium 99 mg PO DAILY 02/17/18 12/19/19 Vitamin B Complex 1 cap PO DAILY 02/17/18 12/19/19 lisinopriL 40 mg PO DAILY@1200 02/17/18 12/19/19 Diltiazem Oral [Cardizem*] 30 mg PO BID@0800,1800 12/19/19 12/19/19 Multivitamins, Thera [Multivitamin 1 tab PO DAILY 12/19/19 12/19/19 (formulary)] Brigid's Wort 150 mg PO DAILY 12/19/19 12/19/19 Turmeric Root Extract [Turmeric] 500 mg PO DAILY 12/19/19 12/19/19 Previous Rx's Medication Instructions Recorded Chlorthalidone 25 mg PO DAILY #30 tab 02/19/18 Warfarin [Coumadin] 9 mg PO DAILY #60 tab 12/20/19 Allergies Allergy/AdvReac Type Severity Reaction Status Date / Time No Known Allergies Allergy Verified 12/17/20 16:30 Review of Systems ROS Statement: Those systems with pertinent positive or pertinent negative responses have been documented in the HPI. ROS Other: All systems not noted in ROS Statement are negative. Past Medical History Past Medical History: Atrial Fibrillation, Hypertension, Prostate Disorder Additional Past Medical History / Comment(s): afib History of Any Multi-Drug Resistant Organisms: None Reported Past Surgical History: Orthopedic Surgery Additional Past Surgical History / Comment(s): eyes, nasal, L foot, lower back, R hand Past Anesthesia/Blood Transfusion Reactions: No Reported Reaction Past Psychological History: No Psychological Hx Reported Smoking Status: Never smoker Past Alcohol Use History: Rare Past Drug Use History: None Reported - Past Family History Mother Family Medical History: AFIB, Congestive Heart Failure (CHF), Hypertension, Myocardial Infarction ([place]) General Exam Limitations: no limitations General appearance: alert, in no apparent distress Head exam: Present: atraumatic, normocephalic Eye exam: Present: normal appearance, PERRL ENT exam: Present: normal exam Neck exam: Present: normal inspection. Absent: tenderness, meningismus Respiratory exam: Present: normal lung sounds bilaterally. Absent: respiratory distress, wheezes, rales Cardiovascular Exam: Present: regular rate, normal rhythm GI/Abdominal exam: Present: soft. Absent: distended, tenderness, guarding Extremities exam: Present: normal inspection, normal capillary refill. Absent: pedal edema, calf tenderness Neurological exam: Present: alert, oriented X3, CN II-XII intact. Absent: motor sensory deficit Psychiatric exam: Present: normal affect, normal mood Skin exam: Present: warm, dry, intact. Absent: cyanosis, diaphoretic Course Vital Signs 12/17/20 16:26 Temperature 98.4 F Pulse Rate 89 Respiratory 16 Rate Blood Pressure 186/70 O2 Sat by Pulse 97 Oximetry EKG Findings - EKG Comments: EKG Findings:: EKG: Normal sinus rhythm, low voltage, rate of 80, CO interval 208, QRS duration 102, QTC 449 Medical Decision Making - Medical Decision Making 64-year-old male presenting with chest tightness, palpitation. Patient is in sinus rhythm no ST segment elevation. Chest x-ray negative for acute findings. Patient has normal CBC, normal CMP, negative initial troponin. He will be kept in observation for telemetry, cardiology consultation, serial cardiac enzymes. Case discussed with Dr. Villar who will admit. - Lab Data Result diagrams: 12/17/20 16:49 12/17/20 16:49 Lab Results 12/17/20 12/17/20 12/17/20 Range/Units 16:49 16:49 16:49 WBC 11.5 H (3.8-10.6) k/uL RBC 4.69 (4.30-5.90) m/uL Hgb 13.6 (13.0-17.5) gm/dL Hct 40.4 (39.0-53.0) % MCV 86.2 (80.0-100.0) fL MCH 29.1 (25.0-35.0) pg MCHC 33.7 (31.0-37.0) g/dL RDW 14.7 (11.5-15.5) % Plt Count 215 (150-450) k/uL MPV 8.8 Neutrophils % 76 % Lymphocytes % 10 % Monocytes % 9 % Eosinophils % 4 % Basophils % 1 % Neutrophils # 8.7 H (1.3-7.7) k/uL Lymphocytes # 1.2 (1.0-4.8) k/uL Monocytes # 1.0 (0-1.0) k/uL Eosinophils # 0.4 (0-0.7) k/uL Basophils # 0.1 (0-0.2) k/uL PT 18.9 H (9.0-12.0) sec INR 1.9 H (<1.2) APTT 30.0 (22.0-30.0) sec Sodium 139 (137-145) mmol/L Potassium 4.0 (3.5-5.1) mmol/L Chloride 102 (98-107) mmol/L Carbon Dioxide 26 (22-30) mmol/L Anion Gap 11 mmol/L BUN 27 H (9-20) mg/dL Creatinine 1.09 (0.66-1.25) mg/dL Est GFR (CKD-EPI)AfAm 83 (>60 ml/min/1.73 sqM) Est GFR (CKD-EPI)NonAf 72 (>60 ml/min/1.73 sqM) Glucose 97 (74-99) mg/dL Calcium 9.4 (8.4-10.2) mg/dL Magnesium 1.7 (1.6-2.3) mg/dL Total Bilirubin 0.6 (0.2-1.3) mg/dL AST 40 (17-59) U/L ALT 26 (4-49) U/L Alkaline Phosphatase 48 (38-126) U/L Troponin I (0.000-0.034) ng/mL Total Protein 8.1 (6.3-8.2) g/dL Albumin 4.4 (3.5-5.0) g/dL 12/17/20 Range/Units 16:49 WBC (3.8-10.6) k/uL RBC (4.30-5.90) m/uL Hgb (13.0-17.5) gm/dL Hct (39.0-53.0) % MCV (80.0-100.0) fL MCH (25.0-35.0) pg MCHC (31.0-37.0) g/dL RDW (11.5-15.5) % Plt Count (150-450) k/uL MPV Neutrophils % % Lymphocytes % % Monocytes % % Eosinophils % % Basophils % % Neutrophils # (1.3-7.7) k/uL Lymphocytes # (1.0-4.8) k/uL Monocytes # (0-1.0) k/uL Eosinophils # (0-0.7) k/uL Basophils # (0-0.2) k/uL PT (9.0-12.0) sec INR (<1.2) APTT (22.0-30.0) sec Sodium (137-145) mmol/L Potassium (3.5-5.1) mmol/L Chloride (98-107) mmol/L Carbon Dioxide (22-30) mmol/L Anion Gap mmol/L BUN (9-20) mg/dL Creatinine (0.66-1.25) mg/dL Est GFR (CKD-EPI)AfAm (>60 ml/min/1.73 sqM) Est GFR (CKD-EPI)NonAf (>60 ml/min/1.73 sqM) Glucose (74-99) mg/dL Calcium (8.4-10.2) mg/dL Magnesium (1.6-2.3) mg/dL Total Bilirubin (0.2-1.3) mg/dL AST (17-59) U/L ALT (4-49) U/L Alkaline Phosphatase (38-126) U/L Troponin I <0.012 (0.000-0.034) ng/mL Total Protein (6.3-8.2) g/dL Albumin (3.5-5.0) g/dL Disposition Clinical Impression: Chest pain Disposition: ADMITTED IP TO THIS HOSP Condition: Stable Is patient prescribed a controlled substance at d/c from ED?: No Referrals: Rafael Mays MD [Primary Care Provider] - 1-2 days Decision to Admit Reason: Admit from EC Decision Date: 12/17/20 Decision Time: 17:44
[2020-12-17 16:54] LABS: Basophils # (A) 0.1 k/uL (0-0.2); Basophils % (A) 1 %; Eosinophils # (A) 0.4 k/uL (0-0.7); Eosinophils % (A) 4 %; HCT 40.4 % (39.0-53.0); HGB 13.6 gm/dL (13.0-17.5); Lymphocytes # (A) 1.2 k/uL (1.0-4.8); Lymphocytes % (A) 10 %; MCH 29.1 pg (25.0-35.0); MCHC 33.7 g/dL (31.0-37.0); MCV 86.2 fL (80.0-100.0); Mean Platelet Volume 8.8; Monocytes % (A) 9 %; Neutrophils # (A) 8.7 k/uL (1.3-7.7); Neutrophils % (A) 76 %; Platelet Count 215 k/uL (150-450); RBC 4.69 m/uL (4.30-5.90); RDW 14.7 % (11.5-15.5); WBC 11.5 k/uL (3.8-10.6)
[2020-12-17 17:05] LABS: Albumin 4.4 g/dL (3.5-5.0); Calcium 9.4 mg/dL (8.4-10.2); Magnesium 1.7 mg/dL (1.6-2.3); Total Bilirubin 0.6 mg/dL (0.2-1.3); Total Protein 8.1 g/dL (6.3-8.2)
[2020-12-17 17:07] LABS: INR 1.9 (<1.2); Prothrombin Time 18.9 sec (9.0-12.0)
--- NOTE | 2020-12-17 17:31 | XR ---
EXAMINATION TYPE: XR chest 2V DATE OF EXAM: 12/17/2020 COMPARISON: 02/07/2020 HISTORY: Chest pain TECHNIQUE: 4 views FINDINGS: There is no heart failure nor confluent pneumonic infiltrate. Costophrenic angles are clear . Exam limited by patient's size. There is no evidence of pleural effusion. The bony thorax appears i ntact. IMPRESSION: No active cardiopulmonary disease. No change.
[2020-12-17] MEDS ORDERED: NALOXONE 0.4 MG/ML 1 ML VIAL IV PRN (17:41)
[2020-12-17] MEDS ORDERED: ACETAMINOPHEN TAB 325 MG TAB PO PRN (17:41)
[2020-12-17] MEDS ORDERED: HYDROcodone/APAP 5-325MG 1 EACH TAB PO PRN (18:32)
[2020-12-17] MEDS ORDERED: HYDROmorphone 0.5 MG/0.5 ML SYRINGE IVP PRN (18:32)
--- NOTE | 2020-12-17 19:45 | HP ---
HISTORY AND PHYSICAL DATE OF SERVICE: 12/17/2020 CHIEF COMPLAINTS: Chest pain and arrhythmia. HISTORY OF PRESENT ILLNESS: This 65-year-old gentleman with a past medical history of multiple medical problems, including atrial fibrillation, history of hypertension, history of prostate disorder, history of DJD, being followed by Dr. Mays in the outpatient setting, was complaining of chest pain this morning. The patient had chest heaviness felt in the anterior part of the chest. The patient's heart rate was also going up and down for the past several days, up to 130. The patient was admitted for further evaluation and treatment. There is no history of any fever, rigor or chills. No history of headache, loss of consciousness, seizures at this time. PAST MEDICAL HISTORY: History of atrial fibrillation, hypertension, history of prostate disorder, history of DJD. HOME MEDICATIONS: Lisinopril, Coumadin, vitamin B complex, turmeric, Cane [place]'s wort, potassium, metoprolol, magnesium, Cardizem CD, chlorthalidone, vitamin C. ALLERGIES: NONE. FAMILY HISTORY: History of CHF, hypertension, myocardial infarction, atrial fibrillation in the family. SOCIAL HISTORY: Previous history of smoking. Occasional alcohol intake. REVIEW OF SYSTEMS: ENT: No diminished hearing. No diminished vision. CARDIOVASCULAR SYSTEM: As mentioned earlier. RESPIRATORY SYSTEM: As mentioned earlier. GI: No nausea, vomiting, diarrhea. : No dysuria or retention. NERVOUS SYSTEM: No numbness, weakness. ALLERGY/IMMUNOLOGY: No asthma, hayfever. MUSCULOSKELETAL: As mentioned earlier. HEMATOLOGY/ONCOLOGY: No history of anemia. ENDOCRINE: No history of diabetes, hypothyroidism. CONSTITUTIONAL: As mentioned earlier. DERMATOLOGY: Negative. RHEUMATOLOGY: Negative. PSYCHIATRY: As mentioned earlier. PHYSICAL EXAMINATION: Patient alert and oriented x3. Pulse 89, blood pressure 186/70, respirations 16, temperature 98.4, pulse ox 97% on room air. HEENT: Conjunctivae normal. NECK: No jugular venous distention. CARDIOVASCULAR SYSTEM: S1, S2 muffled. RESPIRATORY SYSTEM: Breath sounds diminished at the bases. A few rhonchi. No crackles. ABDOMEN: Soft, non-tender. No mass palpable. LEGS: No edema. No swelling. NERVOUS SYSTEM: Higher functions as mentioned earlier. Moves all 4 limbs. No focal motor or sensory deficit. LYMPHATICS: No lymph node palpable in neck, axillae or groin. SKIN: No ulcer, rash, bleeding. JOINTS: No active deforming arthropathy. LABS: WBC 11.5. INR 1.9. Troponins are negative. EKG shows normal sinus rhythm. ASSESSMENT: 1. Chest pain; possible unstable angina. 2. Paroxysmal atrial fibrillation with fast ventricular rate. 3. History of atrial fibrillation. 4. Hypertension. 5. History of prostate disorder. 6. History of degenerative joint disease. 7. Obesity with body mass index of 74.4. 8. Obstructive sleep apnea. 9. FULL CODE. RECOMMENDATIONS AND DISCUSSION: In this 65-year-old gentleman who presented with multiple complex medical issues, we will monitor the patient closely, continue the current medications, continue symptomatic treatment. Rule out myocardial infarction. Unstable angina protocol. Cardiology consultation. Will resume the home medications once they are confirmed. Otherwise, prognosis is extremely guarded because of multiple complex medical issues. Further recommendations to follow. A copy of this dictation is being forwarded to Dr. Mays, who is the primary physician. MMODL / IJN: [id number] /
[2020-12-17] MEDS: MULTIVITAMINS, THERA 1 EACH TAB PO SCH (22:35)
[2020-12-17] MEDS: MAGNESIUM OXIDE 400 MG TAB PO SCH (22:35)
[2020-12-17] MEDS: CHOLECALCIFEROL 25 MCG (1000 IU) TABLET PO SCH (22:39)
[2020-12-17] MEDS: DILTIAZEM ORAL 30 MG TAB PO SCH (22:49)
[2020-12-17] MEDS: METOPROLOL SUCCINATE (ER) 100 MG TAB.ER.24H PO SCH (22:49)
[2020-12-17] MEDS ORDERED: ONDANSETRON 4 MG/2 ML VIAL IVP PRN (23:00)
[2020-12-18 02:30] LABS: Appearance,Urine Clear (Clear); Bilirubin,Urine Negative (Negative); Blood,Urine Negative (Negative); Color,Urine Yellow; Glucose,Urine (UA) Negative (Negative); Ketones,Urine Negative (Negative); Leukocyte Esterase,Urine Trace (Negative); Mucus,Urine Rare /hpf; Nitrite,Urine Negative (Negative); Protein,Urine Negative (Negative); Specific Gravity,Urine 1.017 (1.001-1.035); Urobilinogen,Urine <2.0 mg/dL (<2.0); WBC,Urine 6 /hpf (0-5)
[2020-12-18] MEDS: PANTOPRAZOLE 40 MG TABLET PO SCH (08:01)
[2020-12-18] MEDS ORDERED: DOBUTamine DRIP for NUC MED 500 MG in DEXTROSE/WATER 1 250ML.BAG IV PRN (08:38)
[2020-12-18] MEDS: CHLORTHALIDONE 25 MG TAB PO SCH (08:51)
[2020-12-18 09:28] LABS: Basophils # (A) 0.06 X 10*3/uL (0.00-0.10); Basophils % (A) 0.6 %; Eosinophils # (A) 0.12 X 10*3/uL (0.04-0.35); Eosinophils % (A) 1.1 %; HCT 39.6 % (39.6-50.0); HGB 13.1 g/dL (13.0-17.0); Lymphocytes # (A) 1.84 X 10*3/uL (0.90-5.00); Lymphocytes % (A) 16.9 %; MCH 28.4 pg (27.0-32.0); MCHC 33.1 g/dL (32.0-37.0); MCV 85.9 fL (80.0-97.0); Mean Platelet Volume 12.1 fL (9.5-12.2); Monocytes # (A) 1.18 X 10*3/uL (0.20-1.00); Monocytes % (A) 10.8 %; Neutrophils # (A) 7.65 X 10*3/uL (1.80-7.70); Neutrophils % (A) 70.2 %; Platelet Count 212 X 10*3/uL (140-440); RBC 4.61 X 10*6/uL (4.40-5.60); RDW 14.8 % (11.5-14.5); WBC 10.89 X 10*3/uL (4.50-10.00)
[2020-12-18 09:39] LABS: African American GFR (CKD) 82.4 (60.0-200.0); Anion Gap 9.5 mmol/L (4.00-12.00); BUN/Creat Ratio 19.09 Ratio (12.00-20.00); Calcium 9.1 mg/dL (8.7-10.3); Carbon Dioxide 26.5 mmol/L (21.6-31.8); Non-African American GFR(CKD) 71.1 (60.0-200.0); Potassium 3.3 mmol/L (3.5-5.5)
[2020-12-18 10:21] LABS: INR 1.78 (0.90-1.11); Prothrombin Time 18.7 sec (9.9-11.9)
--- NOTE | 2020-12-18 10:44 | P.CRDCN ---
History of Present Illness History of present illness: HISTORY OF PRESENTING ILLNESS This is a pleasant 65-year-old male past medical history significant for paroxysmal atrial fibrillation on long-term anticoagulation, hypertension and morbid obesity. He follows in the office with Dr. Maxwell. We have been asked to see in consultation for chest pain. Yesterday afternoon he was feeling his heart racing. He states it was very fluttery and was reading at 137 on his blood pressure cough. Throughout this episode he was also experiencing a pressure in the left precordial region. The discomfort did not radiate through to his back, down his arm, into his neck or jaw. He denies associated shortness of breath. He states he did feel mildly lightheaded during this episode. His symptoms have subsided prior to arrival to the emergency department. Initial EKG revealed sinus mechanism with no acute ST or T wave abnormalities noted. Telemetry tracings through the night indicate he was going into atrial fibrillation with rapid ventricular rate. He has auto converted back to sinus mechanism this morning. Chest x-ray is negative for an acute cardiopulmonary process. Laboratory data reviewed, WBC 11.5, hemoglobin 13.1, platelets 212, INR 1.7, sodium 136, potassium 3.3, creatinine 1.1, magnesium 1.7, cardiac enzymes negative 3. He underwent a dobutamine stress echocardiogram December 2019 that was negative for stress-induced ischemia. Most recent echocardiogram obtained in the office reveals preserved LV systolic function with no wall motion abnormalities noted. Current daily cardiac medications include diltiazem 30 mg 3 times a day, chlorthalidone 25 mg daily, Toprol 100 mg at bedtime, lisinopril 40 mg daily and Coumadin. REVIEW OF SYSTEMS At the time of my exam: CONSTITUTIONAL: Denies fever or chills. CARDIOVASCULAR: Denies chest pain, shortness of breath, orthopnea, PND or palpitations. RESPIRATORY: Denies cough. GASTROINTESTINAL: Denies abdominal pain, diarrhea, constipation, nausea or vomiting. MUSCULOSKELETAL: Denies myalgias. NEUROLOGIC: Denies numbness, tingling, headacbe or weakness. ENDOCRINE: Denies fatigue, weight change, polydipsia or polyurina. GENITOURINARY: Denies burning, hematuria or urgency with micturation. HEMATOLOGIC: Denies history of anemia or bleeding. PHYSICAL EXAMINATION Blood pressure 146/70 heart rate 94 afebrile and maintaining oxygen saturation on room air. CONSTITUTIONAL: No apparent distress. Morbidly obese. HEENT: Head is normocephalic. Pupils are equal, round. Sclerae anicteric. Mucous membranes of the mouth are moist. No JVD. No carotid bruit. CHEST EXAMINATION: Lungs are clear to auscultation. No chest wall tenderness is noted on palpation or with deep breathing. HEART EXAMINATION: Regular rate and rhythm. S1, S2 heard. No murmurs, gallops or rub. ABDOMEN: Soft, nontender. Positive bowel sounds. EXTREMITIES: 2+ peripheral pulses, no lower extremity edema and no calf tenderness. NEUROLOGIC EXAMINATION: Patient is awake, alert and oriented x3. ASSESSMENT Chest pain Paroxysmal atrial fibrillation with rapid ventricular rate, converted to sinus mechanism Hypertension Morbid obesity, BMI 74 PLAN Recommend proceeding with dobutamine stress echocardiogram to assess for stress- induced ischemia. If dobutamine stress test is normal we will initiate flecanide this afternoon. He will require overnight monitoring for repeat EKG in the morning. We will make further adjustments to his rate control and hypertensive regimen at that time depending on how he tolerates this medications. Further recommendations to follow based on clinical course. Thank you kindly for this consultation. Nurse Practitioner note has been reviewed, I agree with a documented findings and plan of care. Patient was seen and examined. Past Medical History Past Medical History: Atrial Fibrillation, Hypertension, Prostate Disorder Additional Past Medical History / Comment(s): afib History of Any Multi-Drug Resistant Organisms: None Reported Past Surgical History: Orthopedic Surgery Additional Past Surgical History / Comment(s): eyes, nasal, L foot, lower back, R hand Past Anesthesia/Blood Transfusion Reactions: No Reported Reaction Past Psychological History: No Psychological Hx Reported Smoking Status: Never smoker Past Alcohol Use History: Rare Past Drug Use History: None Reported - Past Family History Mother Family Medical History: AFIB, Congestive Heart Failure (CHF), Hypertension, Myocardial Infarction ([place]) Medications and Allergies Home Medications Medication Instructions Recorded Confirmed Type Ascorbic Acid [Vitamin C] 1,000 mg PO DAILY@1200 02/17/18 12/17/20 History Magnesium 200 mg PO HS 02/17/18 12/17/20 History Metoprolol Succinate [Toprol Xl] 100 mg PO HS 02/17/18 12/17/20 History Potassium 99 mg PO DAILY@1200 02/17/18 12/17/20 History Vitamin B Complex 1 cap PO DAILY 02/17/18 12/17/20 History lisinopriL 40 mg PO DAILY@1200 02/17/18 12/17/20 History Chlorthalidone 25 mg PO DAILY #30 tab 02/19/18 12/17/20 Rx Multivitamins, Thera [Multivitamin 1 tab PO W/SUPPER 12/19/19 12/17/20 History (formulary)] Cholecalciferol [Vitamin D3 (25 50 mcg PO HS 12/17/20 12/17/20 History Mcg = 1000 Iu)] Diltiazem Oral [Cardizem Oral] 30 mg PO TID 12/17/20 12/17/20 History Warfarin [Coumadin] 7.5 mg PO MOFR@1700 12/17/20 12/17/20 History Warfarin [Coumadin] 10 mg PO SUTUWETHSA@1700 12/17/20 12/17/20 History Allergies Allergy/AdvReac Type Severity Reaction Status Date / Time No Known Allergies Allergy Verified 12/17/20 18:33 Physical Exam Vitals: Vital Signs Temp Pulse Pulse Resp BP BP BP 12/18/20 07:00 98.6 F 94 16 146/70 12/18/20 02:00 97.9 F 86 17 142/90 12/18/20 01:50 18 12/17/20 20:00 98 F 84 18 166/91 12/17/20 19:38 98.8 F 56 L 16 166/85 12/17/20 18:49 98 F 84 18 166/91 12/17/20 18:30 52 L 18 153/88 12/17/20 17:30 91 18 152/86 12/17/20 17:00 88 18 155/95 12/17/20 16:26 98.4 F 89 16 186/70 Pulse Ox 12/18/20 07:00 98 12/18/20 02:00 96 12/18/20 01:50 12/17/20 20:00 96 12/17/20 19:38 99 12/17/20 18:49 96 12/17/20 18:30 97 12/17/20 17:30 96 12/17/20 17:00 97 12/17/20 16:26 97 Intake and Output 12/17/20 12/18/20 12/18/20 22:59 06:59 14:59 Intake Total 450 Balance 450 Intake: Oral 450 Other: Voiding Method Toilet Toilet # Voids 3 Weight 190.509 kg Results 12/18/20 04:57 12/18/20 04:56 Cardiac Enzymes 12/17/20 12/17/20 12/17/20 Range/Units 16:49 16:49 19:33 AST 40 (17-59) U/L Troponin I <0.012 <0.012 (0.000-0.034) ng/mL 12/17/20 Range/Units 22:17 AST (17-59) U/L Troponin I <0.012 (0.000-0.034) ng/mL Coagulation 12/17/20 Range/Units 16:49 PT 18.9 H (9.0-12.0) sec APTT 30.0 (22.0-30.0) sec CBC 12/17/20 Range/Units 16:49 WBC 11.5 H (3.8-10.6) k/uL RBC 4.69 (4.30-5.90) m/uL Hgb 13.6 (13.0-17.5) gm/dL Hct 40.4 (39.0-53.0) % Plt Count 215 (150-450) k/uL Comprehensive Metabolic Panel 12/17/20 Range/Units 16:49 Sodium 139 (137-145) mmol/L Potassium 4.0 (3.5-5.1) mmol/L Chloride 102 (98-107) mmol/L Carbon Dioxide 26 (22-30) mmol/L BUN 27 H (9-20) mg/dL Creatinine 1.09 (0.66-1.25) mg/dL Glucose 97 (74-99) mg/dL Calcium 9.4 (8.4-10.2) mg/dL AST 40 (17-59) U/L ALT 26 (4-49) U/L Alkaline Phosphatase 48 (38-126) U/L Total Protein 8.1 (6.3-8.2) g/dL Albumin 4.4 (3.5-5.0) g/dL Current Medications Generic Name Dose Route Start Last Admin Trade Name Freq PRN Reason Stop Dose Admin Acetaminophen 650 mg 12/17/20 17:41 Acetaminophen Tab 325 Mg Tab PO Q6HR PRN Mild Pain or Fever > 100.5 Hydrocodone Bitart/Acetaminophen 1 each 12/17/20 18:32 Hydrocodone/Apap 5-325mg 1 Each Tab PO Q6HR PRN Pain Ascorbic Acid 1,000 mg 12/18/20 12:00 Ascorbic Acid 500 Mg Tab PO DAILY@1200 [facility] Chlorthalidone 25 mg 12/18/20 09:00 Chlorthalidone 25 Mg Tab PO DAILY [facility] Cholecalciferol 50 mcg 12/17/20 23:00 12/17/20 22:39 Cholecalciferol 25 Mcg (1000 Iu) Tablet PO 50 mcg HS [facility] Administration Diltiazem HCl 30 mg 12/17/20 23:00 12/17/20 22:49 Diltiazem Oral 30 Mg Tab PO 30 mg TID [facility] Administration Hydromorphone HCl 0.5 mg 12/17/20 18:32 Hydromorphone 0.5 Mg/0.5 Ml Syringe IVP Q6HR PRN Severe Pain Lisinopril 40 mg 12/18/20 12:00 Lisinopril 20 Mg Tab PO DAILY@1200 [facility] Magnesium Oxide 200 mg 12/17/20 23:00 12/17/20 22:35 Magnesium Oxide 400 Mg Tab PO 200 mg HS [facility] Administration Metoprolol Succinate 100 mg 12/17/20 23:00 12/17/20 22:49 Metoprolol Succinate (Er) 100 Mg Tab.Er.24h PO [address] [facility] Administration Multivit/Ca Carb/B Cmplx/FA/Prenat 1 each 12/18/20 09:00 Folic Acid-Vit B Complex-Vit C 1 Cap PO DAILY [facility] Multivitamins 1 each 12/17/20 23:00 12/17/20 22:35 Multivitamins, Thera 1 Each Tab PO 1 each W/SUPPER [facility] Administration Naloxone HCl 0.2 mg 12/17/20 17:41 Naloxone 0.4 Mg/Ml 1 Ml Vial IV Q2M PRN Opioid Reversal Ondansetron HCl 4 mg 12/17/20 23:00 Ondansetron 4 Mg/2 Ml Vial IVP Q6HR PRN Nausea And Vomiting Pantoprazole Sodium 40 mg 12/18/20 07:30 12/18/20 08:01 Pantoprazole 40 Mg Tablet PO 40 mg [id number] [facility] Administration Intake and Output 12/17/20 12/18/20 12/18/20 22:59 06:59 14:59 Intake Total 450 Balance 450 Intake: Oral 450 Other: Voiding Method Toilet Toilet # Voids 3 Weight 190.509 kg 12/17/20 16:49 12/17/20 16:49
[2020-12-18] MEDS ORDERED: NON FORMULARY DRUG (Potassium [Potassium] 99 MG Tablet) PO SCH (12:00)
[2020-12-18] MEDS: FLECAINIDE 50 MG TAB PO SCH ×2 (12:30→23:08)
[2020-12-18] MEDS: FOLIC ACID-VIT B COMPLEX-VIT C 1 CAP PO SCH (13:01)
[2020-12-18] MEDS: ASCORBIC ACID 500 MG TAB PO SCH (13:01)
[2020-12-18] MEDS: lisinopriL 20 MG TAB PO SCH (14:14)
[2020-12-18] MEDS: MULTIVITAMINS, THERA 1 EACH TAB PO SCH (15:20)
--- NOTE | 2020-12-18 15:24 | ECHOS ---
STRESS ECHOCARDIOGRAM LUMASON: N/A Vial INDICATIONS: Chest pain MEDICATIONS: BASELINE HEART RATE: 70 BASELINE BLOOD PRESSURE: 147/79 MAXIMUM HEART RATE: 148 MAXIMUM BLOOD PRESSURE: 201/65 85% MPHR: 133 100% MPHR: 157 METS: N/A MAXIMUM STAGE REACHED: III TOTAL EXERCISE TIME: 8:24 CLINICAL INFORMATION: A 65-year-old male patient with a history of atrial fibrillation, paroxysmal, who presented with chest palpitations and chest pressure. Baseline heart rate 70 beats per minute. Baseline blood pressure 147/79 mmHg. Baseline 12-lead ECG shows sinus rhythm with a minimally prolonged ME interval, normal ST segments. The patient received dobutamine infusion per protocol. Peak heart rate 148 beats per minute. Mildly hypertensive response to dobutamine infusion. Peak blood pressure 201/65 mmHg. There was no ECG evidence for ischemia. No arrhythmias noted. No atrial fibrillation induced. The baseline 2D echo images were suboptimal on account of the patient's body habitus. Definity contrast was used, but despite that the images were technically difficult. However, at baseline the LV size and systolic function seemed normal. With dobutamine infusion, there was excellent augmentation of overall LV contractility without developing any clear-cut wall motion abnormalities. At recovery, regional global LV systolic function remained normal. IMPRESSION: No ECG or no obvious echocardiographic evidence for ischemia. Technically difficult study on account of the patient's body habitus. MMODL / IJN: [id number] /
[2020-12-18] MEDS: WARFARIN 10 MG TAB PO SCH (15:39)
[2020-12-18] MEDS ORDERED: Potassium Replacement Protocol 1 EACH MISC MISCELLANE PRN (16:10)
[2020-12-18] MEDS ORDERED: Magnesium Replacement Protocol 1 EACH MISC MISCELLANE PRN (16:10)
--- NOTE | 2020-12-18 17:18 | PN ---
PROGRESS NOTE DATE OF SERVICE: 12/18/2020 This 65-year-old gentleman who was admitted chest pain had a stress test today which was negative. Patient also had paroxysmal atrial fibrillation. Flecainide has been initiated. Dobutamine stress echo was reported as showing no EKG or obvious echocardiographic evidence of ischemia. No chest pain. No palpitations. No fever. PHYSICAL EXAMINATION: Alert and oriented x3. Pulse 72, blood pressure 151/93, respirations 16, temperature 98.2, pulse ox 97% on room air. HEENT: Conjunctivae normal. NECK: No jugular venous distention. CARDIOVASCULAR SYSTEM: S1, S2 muffled. RESPIRATORY SYSTEM: Breath sounds diminished at the bases. No rhonchi. No crackles. ABDOMEN: Soft, obese, non-tender. NERVOUS SYSTEM: No focal deficit. LABS: WBC 10.8, hemoglobin 13.1. Sodium 136, potassium 3.3. ASSESSMENT: 1. Chest pain, possibly gastroesophageal reflux disease. Negative dobutamine stress echo. 2. Paroxysmal atrial fibrillation with fast ventricular rate. 3. History of atrial fibrillation. 4. Hypertension. 5. History of prostate disorder. 6. History of degenerative joint disease. 7. Obesity with body mass index of 74.4. 8. Obstructive sleep apnea. 9. FULL CODE. RECOMMENDATIONS AND DISCUSSION: I recommend to continue current medications, continue with the monitoring, symptomatic treatment. Continue with the flecainide per Cardiology. Case Management to follow. Otherwise, repeat labs. Potassium replacement. Guarded prognosis. Further recommendations to follow. MMODL / IJN: [id number] /
[2020-12-18] MEDS: POTASSIUM CHLORIDE ER 20 MEQ TAB.ER PO SCH ×2 (17:30→19:43)
[2020-12-18] MEDS: METOPROLOL SUCCINATE (ER) 100 MG TAB.ER.24H PO SCH (21:09)
[2020-12-18] MEDS: MAGNESIUM OXIDE 400 MG TAB PO SCH (21:10)
[2020-12-18] MEDS: CHOLECALCIFEROL 25 MCG (1000 IU) TABLET PO SCH (21:10)
[2020-12-19] MEDS ORDERED: FLECAINIDE 50 MG TAB PO STA ×2 (04:45→08:52)
[2020-12-19] MEDS: CHLORTHALIDONE 25 MG TAB PO SCH (08:58)
[2020-12-19] MEDS: FOLIC ACID-VIT B COMPLEX-VIT C 1 CAP PO SCH (08:58)
[2020-12-19] MEDS: PANTOPRAZOLE 40 MG TABLET PO SCH (08:58)
[2020-12-19 09:07] LABS: INR 1.57 (0.90-1.11); Prothrombin Time 16.6 sec (9.9-11.9)
[2020-12-19 09:08] LABS: Basophils # (A) 0.06 X 10*3/uL (0.00-0.10); Basophils % (A) 0.6 %; Eosinophils # (A) 0.15 X 10*3/uL (0.04-0.35); Eosinophils % (A) 1.4 %; HCT 38.8 % (39.6-50.0); Lymphocytes # (A) 1.86 X 10*3/uL (0.90-5.00); Lymphocytes % (A) 17.4 %; MCH 29.1 pg (27.0-32.0); MCHC 33.5 g/dL (32.0-37.0); Mean Platelet Volume 12.1 fL (9.5-12.2); Monocytes # (A) 1.34 X 10*3/uL (0.20-1.00); Monocytes % (A) 12.5 %; Neutrophils # (A) 7.25 X 10*3/uL (1.80-7.70); Neutrophils % (A) 67.7 %; Platelet Count 202 X 10*3/uL (140-440); RBC 4.46 X 10*6/uL (4.40-5.60); RDW 14.8 % (11.5-14.5)
[2020-12-19 09:50] LABS: African American GFR (CKD) 92.4 (60.0-200.0); Anion Gap 13.3 mmol/L (4.00-12.00); Calcium 8.8 mg/dL (8.7-10.3); Carbon Dioxide 22.7 mmol/L (21.6-31.8); Magnesium 1.7 mg/dL (1.5-2.4); Non-African American GFR(CKD) 79.7 (60.0-200.0); Potassium 3.8 mmol/L (3.5-5.5)
--- NOTE | 2020-12-19 10:54 | P.PN ---
Subjective HISTORY OF PRESENTING ILLNESS This is a pleasant 65-year-old male past medical history significant for paroxysmal atrial fibrillation on long-term anticoagulation, hypertension and morbid obesity. He follows in the office with Dr. Maxwell. We have been asked to see in consultation for chest pain. Yesterday afternoon he was feeling his heart racing. He states it was very fluttery and was reading at 137 on his blood pressure cough. Throughout this episode he was also experiencing a pressure in the left precordial region. The discomfort did not radiate through to his back, down his arm, into his neck or jaw. He denies associated shortness of breath. He states he did feel mildly lightheaded during this episode. His symptoms have subsided prior to arrival to the emergency department. Initial EKG revealed sinus mechanism with no acute ST or T wave abnormalities noted. Telemetry tracings through the night indicate he was going into atrial fibrillation with rapid ventricular rate. He has auto converted back to sinus mechanism this morning. Chest x-ray is negative for an acute cardiopulmonary process. Laboratory data reviewed, WBC 11.5, hemoglobin 13.1, platelets 212, INR 1.7, sodium 136, potassium 3.3, creatinine 1.1, magnesium 1.7, cardiac enzymes negative 3. He underwent a dobutamine stress echocardiogram December 2019 that was negative for stress-induced ischemia. Most recent echocardiogram obtained in the office reveals preserved LV systolic function with no wall motion abnormalities noted. Current daily cardiac medications include diltiazem 30 mg 3 times a day, chlorthalidone 25 mg daily, Toprol 100 mg at bedtime, lisinopril 40 mg daily and Coumadin. 12/19/2020 Pt seen and examined today resting comfortably in bed in no acute distress. Last night he went in and out of afib a couple times. An additional 50 mg of flecanide was given at 0500. Currently he is in sinus mechanism. Labs are pending. Blood pressure well controlled. During the afib he did feel palpitations, but no chest pain or shortness of breath. PHYSICAL EXAMINATION CONSTITUTIONAL: No apparent distress. Morbidly obese. HEENT: Head is normocephalic. Pupils are equal, round. Sclerae anicteric. Mucous membranes of the mouth are moist. No JVD. No carotid bruit. CHEST EXAMINATION: Lungs are clear to auscultation. No chest wall tenderness is noted on palpation or with deep breathing. HEART EXAMINATION: Regular rate and rhythm. S1, S2 heard. No murmurs, gallops or rub. EXTREMITIES: 2+ peripheral pulses, no lower extremity edema and no calf tenderness. ASSESSMENT Chest pain Paroxysmal atrial fibrillation with rapid ventricular rate, converted to sinus mechanism Hypertension Morbid obesity, BMI 74 PLAN Increase flecainide to 100 mg BID. Continue to monitor for another 24 hours for breakthroug afib, bradycardia or hy potension. Repeat EKG tomorrow morning. We will continue to follow and make recommendations accordingly. Nurse Practitioner note has been reviewed, I agree with a documented findings and plan of care. Patient was seen and examined. Objective - Vital Signs Vital signs: Vital Signs Temp 97.7 F 12/19/20 07:00 Pulse 64 12/19/20 07:00 Resp 16 12/19/20 07:00 BP 136/78 12/19/20 07:00 Pulse Ox 98 12/19/20 07:46 Intake & Output 12/18/20 12/19/20 12/19/20 18:59 06:59 18:59 Intake Total 830 Balance 830 Weight 221.64 kg Intake: Oral 830 Other: Voiding Method Toilet Toilet Toilet # Voids 3 3 # Bowel Movements 1 - Labs CBC & Chem 7: 12/19/20 05:53 12/19/20 05:53 Labs: Abnormal Lab Results - Last 24 Hours (Table) 12/18/20 12/18/20 12/18/20 Range/Units 04:56 04:56 04:57 WBC 10.89 H (4.50-10.00) X 10*3/uL RDW 14.8 H (11.5-14.5) % Monocytes # 1.18 H (0.20-1.00) X 10*3/uL PT 18.7 H (9.9-11.9) sec INR 1.78 H (0.90-1.11) Potassium 3.3 L (3.5-5.5) mmol/L Glucose 122 H (70-110) mg/dL
[2020-12-19] MEDS: lisinopriL 20 MG TAB PO SCH (13:52)
[2020-12-19] MEDS: ASCORBIC ACID 500 MG TAB PO SCH (13:52)
[2020-12-19] MEDS: DILTIAZEM ORAL 30 MG TAB PO SCH (15:13)
--- NOTE | 2020-12-19 17:12 | PN ---
PROGRESS NOTE DATE OF SERVICE: 12/19/2020 This 65-year-old gentleman who was admitted with chest pain also had atrial fibrillation. Cardiology is following the patient closely. The flecainide dose was being adjusted by Cardiology. No chest pain. No palpitations. No fever. PHYSICAL EXAMINATION: Alert and oriented x3. Pulse 81, blood pressure 174/108, respirations 16, temperature 98.2, pulse ox 96% on room air. HEENT: Conjunctivae normal. NECK: No jugular venous distention. CARDIOVASCULAR SYSTEM: S1, S2 muffled. RESPIRATORY SYSTEM: Breath sounds diminished at the bases. No rhonchi. No crackles. ABDOMEN: Soft. NERVOUS SYSTEM: No focal deficit. LABS: WBC 10.7, hemoglobin 13. Other labs are noted. UA noted. ASSESSMENT: 1. Chest pain; possible gastroesophageal reflux disease. Negative dobutamine stress echo. 2. Paroxysmal atrial fibrillation with fast ventricular rate. 3. Possible mild acute urinary tract infection, present on admission. 4. Atrial fibrillation. 5. Increased white count. 6. Hypertension. 7. History of prostate disorder. 8. History of degenerative joint disease. 9. Obesity with body mass index 74.4. 10.Obstructive sleep apnea. 11.FULL CODE. RECOMMENDATIONS AND DISCUSSION: I recommend to continue current medications, continue with symptomatic treatment. Otherwise, continue with the flecainide per Cardiology. Monitor closely. Empiric antibiotics. Otherwise, guarded prognosis. Further recommendations to follow. MMODL / IJN: [id number] /
[2020-12-19] MEDS: MULTIVITAMINS, THERA 1 EACH TAB PO SCH (17:55)
[2020-12-19] MEDS: WARFARIN 10 MG TAB PO SCH (17:55)
[2020-12-19] MEDS: MAGNESIUM OXIDE 400 MG TAB PO SCH (20:33)
[2020-12-19] MEDS: CHOLECALCIFEROL 25 MCG (1000 IU) TABLET PO SCH (20:38)
[2020-12-19] MEDS: METOPROLOL SUCCINATE (ER) 100 MG TAB.ER.24H PO SCH (20:39)
[2020-12-19] MEDS: FLECAINIDE 50 MG TAB PO SCH (20:39)
[2020-12-20 07:47] VITALS: BP 105/67; PULSE 98; RESP 18; TEMP 97.5
[2020-12-20] MEDS: ASCORBIC ACID 500 MG TAB PO SCH (08:32)
[2020-12-20] MEDS: CHLORTHALIDONE 25 MG TAB PO SCH (08:32)
[2020-12-20] MEDS: PANTOPRAZOLE 40 MG TABLET PO SCH (08:32)
[2020-12-20] MEDS: FOLIC ACID-VIT B COMPLEX-VIT C 1 CAP PO SCH (08:33)
[2020-12-20] MEDS: FLECAINIDE 50 MG TAB PO SCH (08:33)
--- NOTE | 2020-12-20 10:26 | P.PN ---
Subjective HISTORY OF PRESENTING ILLNESS This is a pleasant 65-year-old male past medical history significant for paroxysmal atrial fibrillation on long-term anticoagulation, hypertension and morbid obesity. He follows in the office with Dr. Maxwell. We have been asked to see in consultation for chest pain. Yesterday afternoon he was feeling his heart racing. He states it was very fluttery and was reading at 137 on his blood pressure cough. Throughout this episode he was also experiencing a pressure in the left precordial region. The discomfort did not radiate through to his back, down his arm, into his neck or jaw. He denies associated shortness of breath. He states he did feel mildly lightheaded during this episode. His symptoms have subsided prior to arrival to the emergency department. Initial EKG revealed sinus mechanism with no acute ST or T wave abnormalities noted. Telemetry tracings through the night indicate he was going into atrial fibrillation with rapid ventricular rate. He has auto converted back to sinus mechanism this morning. Chest x-ray is negative for an acute cardiopulmonary process. Laboratory data reviewed, WBC 11.5, hemoglobin 13.1, platelets 212, INR 1.7, sodium 136, potassium 3.3, creatinine 1.1, magnesium 1.7, cardiac enzymes negative 3. He underwent a dobutamine stress echocardiogram December 2019 that was negative for stress-induced ischemia. Most recent echocardiogram obtained in the office reveals preserved LV systolic function with no wall motion abnormalities noted. Current daily cardiac medications include diltiazem 30 mg 3 times a day, chlorthalidone 25 mg daily, Toprol 100 mg at bedtime, lisinopril 40 mg daily and Coumadin. 12/19/2020 Pt seen and examined today sitting up in bed in no acute distress. Last night after falling asleep he was woken by the nurse for an EKG. He was in afib with RVR. He converted spontaneously on his own this morning. Currently maintaining sinus mechanism. Blood pressure controlled. Denies chest pain, shortness of breath, dizziness or palpitations. PHYSICAL EXAMINATION CONSTITUTIONAL: No apparent distress. Morbidly obese. HEENT: Head is normocephalic. Pupils are equal, round. Sclerae anicteric. Mucous membranes of the mouth are moist. No JVD. No carotid bruit. CHEST EXAMINATION: Lungs are clear to auscultation. No chest wall tenderness is noted on palpation or with deep breathing. HEART EXAMINATION: Regular rate and rhythm. S1, S2 heard. No murmurs, gallops or rub. EXTREMITIES: 2+ peripheral pulses, no lower extremity edema and no calf tenderness. ASSESSMENT Chest pain Paroxysmal atrial fibrillation with rapid ventricular rate, converted to sinus mechanism Hypertension Morbid obesity, BMI 74 PLAN Stable on current medical regimen. Recommend outpatient event monitor to be picked up at the office upon discharge and then see Dr. Maxwell in 3 weeks. Rx for flecainide sent to the pharmacy. Nurse Practitioner note has been reviewed, I agree with a documented findings and plan of care. Patient was seen and examined. Objective - Vital Signs Vital signs: Vital Signs Temp 97.5 F L 12/20/20 07:00 Pulse 98 12/20/20 07:00 Resp 18 12/20/20 07:00 BP 105/67 12/20/20 07:00 Pulse Ox 98 12/20/20 07:00 Intake & Output 12/19/20 12/20/20 12/20/20 18:59 06:59 18:59 Intake Total 1250 Balance 1250 Intake: Oral 1250 Other: Voiding Method Toilet Toilet # Voids 2 2 - Labs CBC & Chem 7: 12/19/20 05:53 12/19/20 05:53
--- NOTE | 2020-12-20 14:44 | P.DS ---
Providers Date of admission: 12/19/20 14:42 Expected date of discharge: 12/20/20 Attending physician: Jovanny Villar Consults: 12/17/20 17:41 Consult Physician Routine Consulting Provider: Yuliana Maxwell Consult Reason/Comments: CP Do you want consulting provider notified?: Yes Primary care physician: Rafael Mays Hospital Course: Final Diagnosis Chest pain possible gastroesophageal reflux disease. Negative dobutamine stress echo Paroxysmal atrial fibrillation with fast ventricular rate Possible mild acute urinary tract infection, present on admission Atrial fibrillation Increased white count Hypertension History of prostate disorder History of degenerative joint disease obesity with a body mass index of 86.6 Obstructive sleep apnea Full code Discharge disposition Patient is being discharged in a stable condition with guarded prognosis to home. Patient will follow-up with Dr. Rafael Mays in the outpatient setting upon discharge. Patient is to follow-up with cardiology Dr. Maxwell as scheduled. Patient will continue on oral Ceftin 500 mg twice daily for the next 3 days to complete the course. Total time taken is greater than 35 minutes. Hospital course 65-year-old male who was recently admitted with chest pain also atrial fibrillation and was being closely monitored. Patient was seen and evaluated by cardiology with medication adjustments made. Patient underwent dobutamine stress test which was negative. Patient will be following up with cardiology outpatient along with his primary care provider upon discharge. Patient was found to have a mild acute urinary tract infection present on admission although no cultures were done and patient showed clinical improvement with ceftriaxone and will continue with oral Ceftin 500 mg twice daily for the next 3 days to complete the course. Currently no reports of chest pain, shortness of breath, or palpitations. Patient is afebrile. No reports of nausea or vomiting and patient is tolerating diet. Patient would like to be going home today. Patient will be discharged home today. On exam vital signs are stable. Cardio S1, S2 are muffled. Respiratory system shows diminished breath sounds at the bases with no wheezing or rhonchi noted. Abdomen is soft and nontender. Nervous system shows no focal deficits. Please refer to medication reconciliation sheet for a list of medications. Patient Condition at Discharge: Stable Plan - Discharge Summary Discharge Rx Participant: No New Discharge Prescriptions: New Flecainide [Tambocor] 100 mg PO Q12HR #180 tab Cefuroxime Axetil [Ceftin] 500 mg PO BID 3 Days #6 tab Acetaminophen Tab [Tylenol] 650 mg PO Q6HR PRN tab PRN Reason: Mild Pain Or Fever > 100.5 Continue Ascorbic Acid [Vitamin C] 1,000 mg PO DAILY@1200 Vitamin B Complex 1 cap PO DAILY Potassium 99 mg PO DAILY@1200 Magnesium 200 mg PO HS Metoprolol Succinate [Toprol Xl] 100 mg PO HS lisinopriL 40 mg PO DAILY@1200 Chlorthalidone 25 mg PO DAILY #30 tab Multivitamins, Thera [Multivitamin (formulary)] 1 tab PO W/SUPPER Warfarin [Coumadin] 7.5 mg PO MOFR@1700 Warfarin [Coumadin] 10 mg PO SUTUWETHSA@1700 Cholecalciferol [Vitamin D3 (25 Mcg = 1000 Iu)] 50 mcg PO HS Discontinued Diltiazem Oral [Cardizem Oral] 30 mg PO TID Discharge Medication List Ascorbic Acid [Vitamin C] 1,000 mg PO DAILY@1200 02/17/18 [History] Magnesium 200 mg PO HS 02/17/18 [History] Metoprolol Succinate [Toprol Xl] 100 mg PO HS 02/17/18 [History] Potassium 99 mg PO DAILY@1200 02/17/18 [History] Vitamin B Complex 1 cap PO DAILY 02/17/18 [History] lisinopriL 40 mg PO DAILY@1200 02/17/18 [History] Chlorthalidone 25 mg PO DAILY #30 tab 02/19/18 [Rx] Multivitamins, Thera [Multivitamin (formulary)] 1 tab PO W/SUPPER 12/19/19 [History] Cholecalciferol [Vitamin D3 (25 Mcg = 1000 Iu)] 50 mcg PO HS 12/17/20 [History] Warfarin [Coumadin] 7.5 mg PO MOFR@1700 12/17/20 [History] Warfarin [Coumadin] 10 mg PO SUTUWETHSA@1700 12/17/20 [History] Acetaminophen Tab [Tylenol] 650 mg PO Q6HR PRN tab 12/20/20 [Rx] Cefuroxime Axetil [Ceftin] 500 mg PO BID 3 Days #6 tab 12/20/20 [Rx] Flecainide [Tambocor] 100 mg PO Q12HR #180 tab 12/20/20 [Rx] Follow up Appointment(s)/Referral(s): Yuliana aMxwell MD [STAFF PHYSICIAN] - 1 Week (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
[2020-12-20 16:04] LABS: African American GFR (CKD) 67.3 (60.0-200.0); Anion Gap 15.1 mmol/L (4.00-12.00); BUN/Creat Ratio 16.92 Ratio (12.00-20.00); Calcium 9.1 mg/dL (8.7-10.3); Carbon Dioxide 18.9 mmol/L (21.6-31.8); Non-African American GFR(CKD) 58.1 (60.0-200.0); Potassium 4.1 mmol/L (3.5-5.5)
[2020-12-20 16:22] LABS: INR 1.58 (0.90-1.11); Prothrombin Time 16.7 sec (9.9-11.9)
[2020-12-20] MEDS ORDERED: WARFARIN 7.5 MG TAB PO SCH (17:00)
[2020-12-20 17:10] LABS: Basophils # (A) 0.06 X 10*3/uL (0.00-0.10); Basophils % (A) 0.5 %; Eosinophils # (A) 0.11 X 10*3/uL (0.04-0.35); HCT 42.8 % (39.6-50.0); HGB 14.2 g/dL (13.0-17.0); Lymphocytes # (A) 1.58 X 10*3/uL (0.90-5.00); Lymphocytes % (A) 13.9 %; MCH 28.7 pg (27.0-32.0); MCHC 33.2 g/dL (32.0-37.0); MCV 86.6 fL (80.0-97.0); Mean Platelet Volume 12.8 fL (9.5-12.2); Monocytes # (A) 1.03 X 10*3/uL (0.20-1.00); Neutrophils # (A) 8.57 X 10*3/uL (1.80-7.70); Neutrophils % (A) 75.2 %; Platelet Count 197 X 10*3/uL (140-440); RBC 4.94 X 10*6/uL (4.40-5.60); RDW 14.9 % (11.5-14.5); WBC 11.39 X 10*3/uL (4.50-10.00)
== END 2020-12-20 11:58 | disposition home or self-care (01) | DRG 309 ==
LOC: EC 16:25 → 6NMEDSUR 17:42 → OBSVTOIN 12-19 14:42
PROVIDERS: ADMIT Hospitalist; ATTEND Hospitalist
DX: I48.0 Paroxysmal atrial fibrillation (principal); N39.0 Urinary tract infection, site not specified; Z68.45 Body mass index [BMI] 70 or greater, adult; K21.9 Gastro-esophageal reflux disease without esophagitis; E66.01 Morbid (severe) obesity due to excess calories; Z20.822 Contact with and (suspected) exposure to COVID-19; G47.33 Obstructive sleep apnea (adult) (pediatric); I10 Essential (primary) hypertension; Z79.01 Long term (current) use of anticoagulants; Z79.899 Other long term (current) drug therapy; Z82.49 Family history of ischemic heart disease and other diseases of the circulatory system; Z87.891 Personal history of nicotine dependence
CPT/HCPCS: 36415; 71046; 80048; 80053; 81001; 83735; 84443; 84484; 85025; 85610; 85730; 87635; 93005; 93351; 94760; 99285

== ENCOUNTER 2021-11-27 14:35 | Inpatient (IN) | payer OTHER ==
[2021-11-27] MEDS ORDERED: ALBUTEROL HFA INHALER INHALATION STA (15:03)
[2021-11-27] MEDS ORDERED: SODIUM CHLORIDE 0.9% 500 ML 500 ML IV STA (15:03)
--- NOTE | 2021-11-27 15:19 | ED ---
General Adult HPI - General Chief complaint: Shortness of Breath Stated complaint: [place] Time Seen by Provider: 11/27/21 15:00 Source: patient, EMS, RN notes reviewed, old records reviewed Mode of arrival: ambulatory Limitations: physical limitation - History of Present Illness Initial comments: 66-year-old male alert and oriented 4 presents to the emergency room with complaints of 2 days of shortness of breath and body aches. He states his tested positive for coronavirus last week. He thought that she was out of her quarantine. He has not been vaccinated against coronavirus. He does have a history of hypertension and atrial fibrillation. Per EMS patient's oxygen saturation was 85% on room air. -: days(s) (2) Severity scale (1-10): 4 (body aches) Quality: aching Consistency: constant Improves with: none Worsens with: none Associated Symptoms: cough, loss of appetite, other (body aches) Treatments Prior to Arrival: none - Related Data Home Medications Medication Instructions Recorded Confirmed Metoprolol Succinate [Toprol Xl] 100 mg PO HS 02/17/18 11/27/21 lisinopriL 40 mg PO W/LUNCH 02/17/18 11/27/21 Warfarin [Coumadin] 7.5 mg PO MOFR@1700 12/17/20 11/27/21 Warfarin [Coumadin] 10 mg PO SUTUWETHSA@1700 12/17/20 11/27/21 Chlorthalidone 25 mg PO W/BRKFST 11/27/21 11/27/21 Flecainide [Tambocor] 50 mg PO BID 11/27/21 11/27/21 Allergies Allergy/AdvReac Type Severity Reaction Status Date / Time No Known Allergies Allergy Verified 11/27/21 16:00 Review of Systems ROS Statement: Those systems with pertinent positive or pertinent negative responses have been documented in the HPI. ROS Other: All systems not noted in ROS Statement are negative. Past Medical History Past Medical History: Atrial Fibrillation, Hypertension, Prostate Disorder Additional Past Medical History / Comment(s): afib History of Any Multi-Drug Resistant Organisms: None Reported Past Surgical History: Orthopedic Surgery Additional Past Surgical History / Comment(s): eyes, nasal, L foot, lower back, R hand Past Anesthesia/Blood Transfusion Reactions: No Reported Reaction Past Psychological History: No Psychological Hx Reported Smoking Status: Former smoker Past Alcohol Use History: Rare Past Drug Use History: None Reported - Past Family History Mother Family Medical History: AFIB, Congestive Heart Failure (CHF), Hypertension, Myocardial Infarction ([place]) General Exam Limitations: physical limitation General appearance: alert, in no apparent distress Head exam: Present: atraumatic, normocephalic, normal inspection Eye exam: Present: normal appearance. Absent: scleral icterus, conjunctival injection ENT exam: Present: normal exam, normal oropharynx, mucous membranes dry Neck exam: Present: normal inspection. Absent: tenderness, meningismus, lymphadenopathy Respiratory exam: Present: normal lung sounds bilaterally. Absent: respiratory distress, wheezes, rales, rhonchi, stridor, chest wall tenderness, accessory muscle use Cardiovascular Exam: Present: regular rate, normal heart sounds. Absent: JVD GI/Abdominal exam: Present: soft. Absent: distended, tenderness, guarding, rebound, rigid Extremities exam: Present: normal capillary refill, pedal edema (2+). Absent: calf tenderness Back exam: Present: normal inspection. Absent: tenderness, CVA tenderness (R), CVA tenderness (L) Neurological exam: Present: alert, oriented X3 Psychiatric exam: Present: normal affect, normal mood Skin exam: Present: warm, dry, intact, normal color. Absent: rash, cyanosis, diaphoretic Course Vital Signs 11/27/21 11/27/21 11/27/21 14:37 14:44 15:00 Temperature 99.6 F Pulse Rate 99 84 Respiratory 24 28 H 24 Rate Blood Pressure 97/80 108/77 O2 Sat by Pulse 94 L Oximetry 11/27/21 11/27/21 11/27/21 15:30 16:22 16:55 Temperature Pulse Rate 80 90 85 Respiratory 24 24 18 Rate Blood Pressure 130/76 152/82 O2 Sat by Pulse 94 L 93 L 86 L Oximetry 11/27/21 11/27/21 18:03 19:40 Temperature 99.2 F Pulse Rate 96 98 Respiratory 22 22 Rate Blood Pressure 156/82 109/64 O2 Sat by Pulse 94 L 94 L Oximetry EKG Findings - EKG Results: EKG: sinus rhythm (Ventricular rate of 81,. Vital 0.218 first AV block. QRS 0.106, QTC 0.576), not changed from: (2-) Medical Decision Making - Medical Decision Making 66-year-old male presents via EMS with complaints of 2 days of shortness of breath and body aches. He has not been vaccinated against coronavirus. Per EMS patient's oxygen saturation was 85% on room air. He did test positive for coronavirus in the emergency room today. He does take Coumadin for his atrial fibrillation. Potassium was 2.6 and replacement was ordered. Sodium is 132, BUN is 31 creatinine 1.41. Lactic acid is 3.1 patient was given 500 mL normal saline then 130 mL an hour. Troponin is slightly elevated 0.024 Chest x-ray shows possibility of pneumonia with new airspace disease in the right mid and lower lung. Due to the patient's need for oxygen supplementation he does not qualify for monoclonal antibodies infusion. Case was discussed with Dr. Rosales. He will be admitted to the hospital for hypoxia, Covid pneumonia, hypokalemia, elevated troponin and lactic acidosis. - Lab Data Result diagrams: 11/27/21 15:38 11/27/21 15:38 Lab Results 11/27/21 11/27/21 11/27/21 Range/Units 14:48 15:38 15:38 WBC 10.0 (3.8-10.6) k/uL RBC 4.46 (4.30-5.90) m/uL Hgb 12.9 L (13.0-17.5) gm/dL Hct 37.4 L (39.0-53.0) % MCV 83.8 (80.0-100.0) fL MCH 29.0 (25.0-35.0) pg MCHC 34.6 (31.0-37.0) g/dL RDW 14.6 (11.5-15.5) % Plt Count 279 (150-450) k/uL MPV 8.4 Neutrophils % 85 % Lymphocytes % 5 % Monocytes % 8 % Eosinophils % 0 % Basophils % 1 % Neutrophils # 8.5 H (1.3-7.7) k/uL Lymphocytes # 0.5 L (1.0-4.8) k/uL Monocytes # 0.8 (0-1.0) k/uL Eosinophils # 0.0 (0-0.7) k/uL Basophils # 0.1 (0-0.2) k/uL PT 38.5 H (9.0-12.0) sec INR 3.9 H (<1.2) APTT 37.4 H (22.0-30.0) sec D-Dimer 0.70 H (<0.60) mg/L FEU Sodium (137-145) mmol/L Potassium (3.5-5.1) mmol/L Chloride (98-107) mmol/L Carbon Dioxide (22-30) mmol/L Anion Gap mmol/L BUN (9-20) mg/dL Creatinine (0.66-1.25) mg/dL Est GFR (CKD-EPI)AfAm (>60 ml/min/1.73 sqM) Est GFR (CKD-EPI)NonAf (>60 ml/min/1.73 sqM) Glucose (74-99) mg/dL Lactic Ac Sepsis Rflx Plasma Lactic Acid Cr (0.7-2.0) mmol/L Calcium (8.4-10.2) mg/dL Magnesium (1.6-2.3) mg/dL Total Bilirubin (0.2-1.3) mg/dL AST (17-59) U/L ALT (4-49) U/L Alkaline Phosphatase (38-126) U/L Troponin I (0.000-0.034) ng/mL NT-Pro-B Natriuret Pep pg/mL Total Protein (6.3-8.2) g/dL Albumin (3.5-5.0) g/dL Coronavirus (PCR) Detected A (Not Detectd) 11/27/21 11/27/21 11/27/21 Range/Units 15:38 15:38 15:38 WBC (3.8-10.6) k/uL RBC (4.30-5.90) m/uL Hgb (13.0-17.5) gm/dL Hct (39.0-53.0) % MCV (80.0-100.0) fL MCH (25.0-35.0) pg MCHC (31.0-37.0) g/dL RDW (11.5-15.5) % Plt Count (150-450) k/uL MPV Neutrophils % % Lymphocytes % % Monocytes % % Eosinophils % % Basophils % % Neutrophils # (1.3-7.7) k/uL Lymphocytes # (1.0-4.8) k/uL Monocytes # (0-1.0) k/uL Eosinophils # (0-0.7) k/uL Basophils # (0-0.2) k/uL PT (9.0-12.0) sec INR (<1.2) APTT (22.0-30.0) sec D-Dimer (<0.60) mg/L FEU Sodium 132 L (137-145) mmol/L Potassium 2.6 L* (3.5-5.1) mmol/L Chloride 96 L (98-107) mmol/L Carbon Dioxide 26 (22-30) mmol/L Anion Gap 10 mmol/L BUN 31 H (9-20) mg/dL Creatinine 1.41 H (0.66-1.25) mg/dL Est GFR (CKD-EPI)AfAm 61 (>60 ml/min/1.73 sqM) Est GFR (CKD-EPI)NonAf 53 (>60 ml/min/1.73 sqM) Glucose 151 H (74-99) mg/dL Lactic Ac Sepsis Rflx Plasma Lactic Acid Cr 3.1 H* (0.7-2.0) mmol/L Calcium 7.8 L (8.4-10.2) mg/dL Magnesium 2.1 (1.6-2.3) mg/dL Total Bilirubin 0.8 (0.2-1.3) mg/dL AST 112 H (17-59) U/L ALT 67 H (4-49) U/L Alkaline Phosphatase 51 (38-126) U/L Troponin I 0.024 (0.000-0.034) ng/mL NT-Pro-B Natriuret Pep pg/mL Total Protein 6.6 (6.3-8.2) g/dL Albumin 3.4 L (3.5-5.0) g/dL Coronavirus (PCR) (Not Detectd) 11/27/21 11/27/21 Range/Units 15:38 16:20 WBC (3.8-10.6) k/uL RBC (4.30-5.90) m/uL Hgb (13.0-17.5) gm/dL Hct (39.0-53.0) % MCV (80.0-100.0) fL MCH (25.0-35.0) pg MCHC (31.0-37.0) g/dL RDW (11.5-15.5) % Plt Count (150-450) k/uL MPV Neutrophils % % Lymphocytes % % Monocytes % % Eosinophils % % Basophils % % Neutrophils # (1.3-7.7) k/uL Lymphocytes # (1.0-4.8) k/uL Monocytes # (0-1.0) k/uL Eosinophils # (0-0.7) k/uL Basophils # (0-0.2) k/uL PT (9.0-12.0) sec INR (<1.2) APTT (22.0-30.0) sec D-Dimer (<0.60) mg/L FEU Sodium (137-145) mmol/L Potassium (3.5-5.1) mmol/L Chloride (98-107) mmol/L Carbon Dioxide (22-30) mmol/L Anion Gap mmol/L BUN (9-20) mg/dL Creatinine (0.66-1.25) mg/dL Est GFR (CKD-EPI)AfAm (>60 ml/min/1.73 sqM) Est GFR (CKD-EPI)NonAf (>60 ml/min/1.73 sqM) Glucose (74-99) mg/dL Lactic Ac Sepsis Rflx Y Plasma Lactic Acid Cr (0.7-2.0) mmol/L Calcium (8.4-10.2) mg/dL Magnesium (1.6-2.3) mg/dL Total Bilirubin (0.2-1.3) mg/dL AST (17-59) U/L ALT (4-49) U/L Alkaline Phosphatase (38-126) U/L Troponin I (0.000-0.034) ng/mL NT-Pro-B Natriuret Pep 390 pg/mL Total Protein (6.3-8.2) g/dL Albumin (3.5-5.0) g/dL Coronavirus (PCR) (Not Detectd) Disposition Clinical Impression: COVID-19, Hypoxia, Lactic acidosis, Hypokalemia Disposition: ADMITTED IP TO THIS HOSP Decision Date: 11/27/21 Decision Time: 17:18
[2021-11-27 15:57] LABS: Basophils # (A) 0.1 k/uL (0-0.2); Basophils % (A) 1 %; Eosinophils % (A) 0 %; HCT 37.4 % (39.0-53.0); HGB 12.9 gm/dL (13.0-17.5); Lymphocytes # (A) 0.5 k/uL (1.0-4.8); Lymphocytes % (A) 5 %; MCHC 34.6 g/dL (31.0-37.0); MCV 83.8 fL (80.0-100.0); Mean Platelet Volume 8.4; Monocytes # (A) 0.8 k/uL (0-1.0); Monocytes % (A) 8 %; Neutrophils # (A) 8.5 k/uL (1.3-7.7); Neutrophils % (A) 85 %; Platelet Count 279 k/uL (150-450); RBC 4.46 m/uL (4.30-5.90); RDW 14.6 % (11.5-15.5)
--- NOTE | 2021-11-27 16:03 | XR ---
EXAMINATION TYPE: XR chest 2V DATE OF EXAM: 11/27/2021 COMPARISON: 12/17/2020 HISTORY: 66 year-old male shortness of breath, difficulty breathing, cough and fever for 3 days. TECHNIQUE: AP and lateral views FINDINGS: Heart upper limits of normal in size. Aorta within normal limits. Mild interstitial prominence. Confl uent opacity periphery of the right mid and lower lung new from prior exam. Either projectional artif act or subcoracoid positioning of the right humeral head. No pleural effusion. IMPRESSION: 1. New airspace disease in the periphery of the right mid and lower lung. Correlate for pneumonia inc luding the possibility of COVID pneumonia. 2. Unusual subcoracoid positioning of the right humeral head. This could be projectional artifact. Co rrelate to exclude anterior shoulder dislocation.
[2021-11-27 16:10] LABS: INR 3.9 (<1.2); Partial Thromboplastin Time 37.4 sec (22.0-30.0); Prothrombin Time 38.5 sec (9.0-12.0)
[2021-11-27 16:18] LABS: Albumin 3.4 g/dL (3.5-5.0); Calcium 7.8 mg/dL (8.4-10.2); Magnesium 2.1 mg/dL (1.6-2.3); Total Bilirubin 0.8 mg/dL (0.2-1.3); Total Protein 6.6 g/dL (6.3-8.2)
[2021-11-27 16:21] LABS: Potassium 2.6 mmol/L (3.5-5.1)
[2021-11-27] MEDS ORDERED: DEXAMETHASONE SOD PHOSPHATE 10 MG/ML 1 ML VIAL IVP STA (16:46)
[2021-11-27] MEDS ORDERED: NALOXONE 0.4 MG/ML 1 ML VIAL IV PRN (16:59)
[2021-11-27] MEDS ORDERED: SOTROVIMAB (EUA) 500 MG in SODIUM CHLORIDE 0.9% 100 ML IVPB ONE (17:15)
[2021-11-27] MEDS: SODIUM CHLORIDE 0.9% 1,000 ML IV SCH (17:44)
[2021-11-27] MEDS: POTASSIUM CHLORIDE 10 MEQ in WATER FOR INJECTION 1 100ML.BAG IVPB SCH ×3 (17:44→21:44)
[2021-11-27] MEDS ORDERED: SODIUM CHLORIDE 0.9% 50 ML IVPB ONE (17:45)
[2021-11-27] MEDS ORDERED: WARFARIN 0.5 MG TAB PO ONE (18:00)
[2021-11-27] MEDS: FLECAINIDE 50 MG TAB PO SCH (21:43)
[2021-11-27] MEDS: METOPROLOL SUCCINATE (ER) 100 MG TAB.ER.24H PO SCH (21:43)
[2021-11-27] MEDS ORDERED: LACTULOSE 20 GM/30 ML CUP PO PRN (23:01)
[2021-11-27] MEDS ORDERED: CALCIUM CARBONATE 500 MG CHEWABLE PO PRN (23:01)
[2021-11-27] MEDS ORDERED: ONDANSETRON 4 MG/2 ML VIAL IVP PRN (23:01)
[2021-11-27] MEDS ORDERED: POTASSIUM CHLORIDE ER 20 MEQ TAB.ER PO STA (23:14)
--- NOTE | 2021-11-27 23:15 | P.HPIM ---
History of Present Illness H&P Date: 11/27/21 Chief Complaint: Short of breath This is a pleasant 66-year-old patient who follows with Dr. Mays. Chronic stable medical conditions include atrial fibrillation on Coumadin, hypertension, morbid obesity, arthritis. Patient did not take the vaccine for COVID 19. 4 days ago patient started getting increasingly short of breath. Wheezing. Cough with some milky sputum. Fevers present. Decreased appetite tired rundown. No loss of smell or taste. No headache. Has some loose stools. Patient's significant other just recover from COVID 19. Patient tested positive for the same the ER. Was found to be significant hypoxic. Review of systems: GEN.: Tired fever decreased appetite EYES: None HEENT: None NECK: None RESPIRATORY: As above CARDIOVASCULAR: None GASTROINTESTINAL: As above GENITOURINARY: None MUSCULOSKELETAL: Joint pains LYMPHATICS: None HEMATOLOGICAL: None PSYCHIATRY: None NEUROLOGICAL: None Past medical history to include: Atrial fibrillation, hypertension, morbid obesity Social history: Lives with his significant other. Alcohol rarely. No smoking. 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 Family history: Congestive heart failure, hypertension, [place] Physical examination: VITAL SIGNS: 99.6, 99, 24, 97/80, 94% on 4 L GENERAL: BMI 60.9, reclining in bed, short of breath awake tired. EYES: Pupils equal. Conjunctiva normal. HEENT: External appearance of nose and ears normal, oral cavity grossly normal. NECK: JVD unable to assess; masses not palpable. HEART: Discharged heart sounds; some edema. LUNGS: Respiratory rate increased, accessory muscles awoken, not able to speak in full sentences; distant breath sounds, prolonged expiration. ABDOMEN: Soft, nontender, liver spleen not palpable, no masses palpable. PSYCH: Alert and oriented x3; mood and affect anxiousl. MUSCULOSKELETAL:No Clubbing/cyanosis;muscles-grossly intact, some evidence of OA NEUROLOGICAL: Cranial nerves grossly intact; no facial asymmetry, power and sensation grossly intact. LYMPHATICS: No lymph nodes palpable in the axilla and neck INVESTIGATIONS, reviewed in the clinical context: White count 10 hemoglobin 12.9 platelets 279 INR 3.9 d-dimer 0.7 sodium 132 potassium 2.6 BUN 31 and creatinine 1.41 Lactic acid 3.1 AST 112 ALT 67 Troponin I 0.024, 0.027, 0.025 Coronavirus [PCR]: Detected EKG tracing personally reviewed by me-normal sinus rhythm. Nonspecific T and ST segment changes. Chest x-ray film personally reviewed by me-bilateral infiltrates Assessment and plan: -Acute bilateral COVID-19 infiltrates. Symptoms present for 4 days. Patient to take the COVID-19 vaccine. Dexamethasone, vitamin C, vitamin D, patient is on Coumadin. Dr. owens consulted. -Acute hypoxic respiratory failure from COVID 19 Supplement oxygen -Hyponatremia from decreased oral intake Encourage food intake -Severe hypokalemia, patient is on chlorthalidone Replace potassium -Acute kidney injury, likely prerenal DC chlorthalidone, DC lisinopril. IV fluids -Hepatitis, likely hepatic steatosis. Could be from COVID 19. Liver ultrasound down the road -Mild hypoalbuminemia Acute phase reactant -Morbid obesity BMI 60.9 Weight loss measures Dexamethasone. Oxygen supplementation. Home medications resumed. Hold chlorthalidone and lisinopril. IV fluids. Follow labs. Consultation to pulmonary. Replace potassium Given the complexity and severity of patient's condition expect the patient to be in the hospital at least for 2 overnights Past Medical History Past Medical History: Atrial Fibrillation, Hypertension Additional Past Medical History / Comment(s): afib History of Any Multi-Drug Resistant Organisms: None Reported Past Surgical History: Orthopedic Surgery Additional Past Surgical History / Comment(s): eyes, nasal, L foot, R hand Past Anesthesia/Blood Transfusion Reactions: No Reported Reaction Past Psychological History: No Psychological Hx Reported Smoking Status: Former smoker Past Alcohol Use History: Rare Past Drug Use History: None Reported - Past Family History Mother Family Medical History: AFIB, Congestive Heart Failure (CHF), Hypertension, Myocardial Infarction ([place]) Medications and Allergies Home Medications Medication Instructions Recorded Confirmed Type Metoprolol Succinate [Toprol Xl] 100 mg PO HS 02/17/18 11/27/21 History lisinopriL 40 mg PO W/LUNCH 02/17/18 11/27/21 History Warfarin [Coumadin] 7.5 mg PO MOFR@1700 12/17/20 11/27/21 History Warfarin [Coumadin] 10 mg PO SUTUWETHSA@1700 12/17/20 11/27/21 History Chlorthalidone 25 mg PO W/BRKFST 11/27/21 11/27/21 History Flecainide [Tambocor] 50 mg PO BID 11/27/21 11/27/21 History Allergies Allergy/AdvReac Type Severity Reaction Status Date / Time No Known Allergies Allergy Verified 11/27/21 16:00 Physical Exam Vitals: Vital Signs Temp Pulse Pulse Resp BP BP Pulse Ox 11/27/21 20:33 98.1 F 97 17 155/81 95 11/27/21 19:40 99.2 F 98 22 109/64 94 L 11/27/21 18:03 96 22 156/82 94 L 11/27/21 16:55 85 18 86 L 11/27/21 16:22 90 24 152/82 93 L 11/27/21 15:30 80 24 130/76 94 L 11/27/21 15:00 84 24 108/77 94 L 11/27/21 14:44 28 H 11/27/21 14:37 99.6 F 99 24 97/80 Intake and Output 11/27/21 11/27/21 11/28/21 14:59 22:59 06:59 Other: Weight 226.796 kg 226.796 kg Results CBC & Chem 7: 11/27/21 15:38 11/27/21 15:38 Labs: Abnormal Lab Results - Last 24 Hours (Table) 11/27/21 11/27/21 11/27/21 Range/Units 14:48 15:38 15:38 Hgb 12.9 L (13.0-17.5) gm/dL Hct 37.4 L (39.0-53.0) % Neutrophils # 8.5 H (1.3-7.7) k/uL Lymphocytes # 0.5 L (1.0-4.8) k/uL PT 38.5 H (9.0-12.0) sec INR 3.9 H (<1.2) APTT 37.4 H (22.0-30.0) sec D-Dimer 0.70 H (<0.60) mg/L FEU Sodium (137-145) mmol/L Potassium (3.5-5.1) mmol/L Chloride (98-107) mmol/L BUN (9-20) mg/dL Creatinine (0.66-1.25) mg/dL Glucose (74-99) mg/dL Plasma Lactic Acid Cr (0.7-2.0) mmol/L Calcium (8.4-10.2) mg/dL AST (17-59) U/L ALT (4-49) U/L Albumin (3.5-5.0) g/dL Coronavirus (PCR) Detected A (Not Detectd) 11/27/21 11/27/21 11/27/21 Range/Units 15:38 15:38 18:27 Hgb (13.0-17.5) gm/dL Hct (39.0-53.0) % Neutrophils # (1.3-7.7) k/uL Lymphocytes # (1.0-4.8) k/uL PT (9.0-12.0) sec INR (<1.2) APTT (22.0-30.0) sec D-Dimer (<0.60) mg/L FEU Sodium 132 L (137-145) mmol/L Potassium 2.6 L* (3.5-5.1) mmol/L Chloride 96 L (98-107) mmol/L BUN 31 H (9-20) mg/dL Creatinine 1.41 H (0.66-1.25) mg/dL Glucose 151 H (74-99) mg/dL Plasma Lactic Acid Cr 3.1 H* 3.5 H* (0.7-2.0) mmol/L Calcium 7.8 L (8.4-10.2) mg/dL AST 112 H (17-59) U/L ALT 67 H (4-49) U/L Albumin 3.4 L (3.5-5.0) g/dL Coronavirus (PCR) (Not Detectd) 11/27/21 Range/Units 22:09 Hgb (13.0-17.5) gm/dL Hct (39.0-53.0) % Neutrophils # (1.3-7.7) k/uL Lymphocytes # (1.0-4.8) k/uL PT (9.0-12.0) sec INR (<1.2) APTT (22.0-30.0) sec D-Dimer (<0.60) mg/L FEU Sodium (137-145) mmol/L Potassium (3.5-5.1) mmol/L Chloride (98-107) mmol/L BUN (9-20) mg/dL Creatinine (0.66-1.25) mg/dL Glucose (74-99) mg/dL Plasma Lactic Acid Cr 3.4 H* (0.7-2.0) mmol/L Calcium (8.4-10.2) mg/dL AST (17-59) U/L ALT (4-49) U/L Albumin (3.5-5.0) g/dL Coronavirus (PCR) (Not Detectd) Thrombosis Risk Factor Assmnt - Choose All That Apply Each Factor Represents 1 point: Obesity (BMI >25) Each Risk Factor Represents 2 Points: Age 61-74 years Thrombosis Risk Factor Assessment Total Risk Factor Score: 3 Thrombosis Risk Factor Assessment Level: Moderate Risk
[2021-11-28] MEDS: POTASSIUM CHLORIDE 10 MEQ in WATER FOR INJECTION 1 100ML.BAG IVPB SCH ×3 (00:07→05:15)
[2021-11-28 05:07] LABS: INR 3.6 (<1.2); Prothrombin Time 35.4 sec (9.0-12.0)
[2021-11-28 05:30] LABS: Basophils % (A) 0 %; Eosinophils % (A) 0 %; HCT 36.2 % (39.0-53.0); HGB 12.3 gm/dL (13.0-17.5); Lymphocytes # (A) 0.4 k/uL (1.0-4.8); Lymphocytes % (A) 5 %; MCH 28.9 pg (25.0-35.0); MCHC 34.1 g/dL (31.0-37.0); MCV 84.7 fL (80.0-100.0); Mean Platelet Volume 8.2; Monocytes # (A) 0.5 k/uL (0-1.0); Monocytes % (A) 7 %; Neutrophils # (A) 6.3 k/uL (1.3-7.7); Neutrophils % (A) 87 %; Platelet Count 248 k/uL (150-450); RBC 4.27 m/uL (4.30-5.90); RDW 14.5 % (11.5-15.5); WBC 7.3 k/uL (3.8-10.6)
[2021-11-28] MEDS ORDERED: CHLORTHALIDONE 25 MG TAB PO SCH (07:30)
[2021-11-28] MEDS: FAMOTIDINE 20 MG TAB PO SCH (07:41)
[2021-11-28] MEDS: ZINC SULFATE 220 MG CAP PO SCH (07:41)
[2021-11-28] MEDS: ASCORBIC ACID 500 MG TAB PO SCH (07:41)
[2021-11-28] MEDS: CHOLECALCIFEROL 25 MCG (1000 IU) TABLET PO SCH (07:41)
[2021-11-28] MEDS: FLECAINIDE 50 MG TAB PO SCH ×2 (07:42→21:33)
[2021-11-28] MEDS: DEXAMETHASONE SOD PHOSPHATE 10 MG/ML 1 ML VIAL IVP SCH (07:42)
[2021-11-28] MEDS: SODIUM CHLORIDE 0.9% 1,000 ML IV SCH ×3 (07:43→16:38)
[2021-11-28] MEDS ORDERED: lisinopriL 20 MG TAB PO SCH (12:30)
--- NOTE | 2021-11-28 12:40 | P.PN ---
Subjective This is a pleasant 66-year-old patient who follows with Dr. Mays. Chronic stable medical conditions include atrial fibrillation on Coumadin, hypertension, morbid obesity, arthritis. Patient did not take the vaccine for COVID 19. 4 days ago patient started getting increasingly short of breath. Wheezing. Cough with some milky sputum. Fevers present. Decreased appetite tired rundown. No loss of smell or taste. No headache. Has some loose stools. Patient's significant other just recover from COVID 19. Patient tested positive for the s jacoby the ER. Was found to be significant hypoxic. 11/28/2021 This is a pleasant 66 years old male who presents with respiratory distress secondary to bilateral Covid pneumonia and mild hypoxic respiratory failure Currently is covered with dexamethasone, vitamin C, D and zinc. This morning he was still feeling some shortness of breath especially with talking although reports some improvement. Lactic acid came back to normal Chest x-ray showing bilateral infiltrate and cholelithiasis positive. Patient has not been vaccinated before D-dimer is stable at 0.6. Objective - Vital Signs Vital signs: Vital Signs Temp 97.8 F 11/28/21 08:27 Pulse 78 11/28/21 08:27 Resp 18 11/28/21 08:27 BP 160/87 11/28/21 08:27 Pulse Ox 92 L 11/28/21 08:27 Intake & Output 11/27/21 11/28/21 11/28/21 18:59 06:59 18:59 Weight 226.796 kg Other: # Voids 4 - Exam -GENERAL: The patient is alert and oriented x3, not in any acute distress. Morbidly obese HEENT: Pupils are round and equally reacting to light. EOMI. No scleral icterus. No conjunctival pallor. Normocephalic, atraumatic. No pharyngeal erythema. No thyromegaly. CARDIOVASCULAR: S1 and S2 present. No murmurs, rubs, or gallops. PULMONARY: Chest is clear to auscultation, no wheezing or crackles. ABDOMEN: Soft, nontender, nondistended, normoactive bowel sounds. No palpable organomegaly. MUSCULOSKELETAL: No joint swelling or deformity. EXTREMITIES: No cyanosis, clubbing, or pedal edema. NEUROLOGICAL: Gross neurological examination did not reveal any focal deficits. SKIN: No rashes. no petechiae. - Labs CBC & Chem 7: 11/28/21 04:29 11/27/21 15:38 Labs: Abnormal Lab Results - Last 24 Hours (Table) 11/27/21 11/27/21 11/27/21 Range/Units 14:48 15:38 15:38 RBC (4.30-5.90) m/uL Hgb 12.9 L (13.0-17.5) gm/dL Hct 37.4 L (39.0-53.0) % Neutrophils # 8.5 H (1.3-7.7) k/uL Lymphocytes # 0.5 L (1.0-4.8) k/uL PT 38.5 H (9.0-12.0) sec INR 3.9 H (<1.2) APTT 37.4 H (22.0-30.0) sec D-Dimer 0.70 H (<0.60) mg/L FEU Sodium (137-145) mmol/L Potassium (3.5-5.1) mmol/L Chloride (98-107) mmol/L BUN (9-20) mg/dL Creatinine (0.66-1.25) mg/dL Glucose (74-99) mg/dL Plasma Lactic Acid Cr (0.7-2.0) mmol/L Calcium (8.4-10.2) mg/dL AST (17-59) U/L ALT (4-49) U/L Albumin (3.5-5.0) g/dL Procalcitonin (0.02-0.09) ng/mL Coronavirus (PCR) Detected A (Not Detectd) 11/27/21 11/27/21 11/27/21 Range/Units 15:38 15:38 15:38 RBC (4.30-5.90) m/uL Hgb (13.0-17.5) gm/dL Hct (39.0-53.0) % Neutrophils # (1.3-7.7) k/uL Lymphocytes # (1.0-4.8) k/uL PT (9.0-12.0) sec INR (<1.2) APTT (22.0-30.0) sec D-Dimer (<0.60) mg/L FEU Sodium 132 L (137-145) mmol/L Potassium 2.6 L* (3.5-5.1) mmol/L Chloride 96 L (98-107) mmol/L BUN 31 H (9-20) mg/dL Creatinine 1.41 H (0.66-1.25) mg/dL Glucose 151 H (74-99) mg/dL Plasma Lactic Acid Cr 3.1 H* (0.7-2.0) mmol/L Calcium 7.8 L (8.4-10.2) mg/dL AST 112 H (17-59) U/L ALT 67 H (4-49) U/L Albumin 3.4 L (3.5-5.0) g/dL Procalcitonin 0.12 H (0.02-0.09) ng/mL Coronavirus (PCR) (Not Detectd) 11/27/21 11/27/21 11/28/21 Range/Units 18:27 22:09 01:29 RBC (4.30-5.90) m/uL Hgb (13.0-17.5) gm/dL Hct (39.0-53.0) % Neutrophils # (1.3-7.7) k/uL Lymphocytes # (1.0-4.8) k/uL PT (9.0-12.0) sec INR (<1.2) APTT (22.0-30.0) sec D-Dimer (<0.60) mg/L FEU Sodium (137-145) mmol/L Potassium (3.5-5.1) mmol/L Chloride (98-107) mmol/L BUN (9-20) mg/dL Creatinine (0.66-1.25) mg/dL Glucose (74-99) mg/dL Plasma Lactic Acid Cr 3.5 H* 3.4 H* 2.7 H* (0.7-2.0) mmol/L Calcium (8.4-10.2) mg/dL AST (17-59) U/L ALT (4-49) U/L Albumin (3.5-5.0) g/dL Procalcitonin (0.02-0.09) ng/mL Coronavirus (PCR) (Not Detectd) 11/28/21 11/28/21 Range/Units 04:29 04:29 RBC 4.27 L (4.30-5.90) m/uL Hgb 12.3 L (13.0-17.5) gm/dL Hct 36.2 L (39.0-53.0) % Neutrophils # (1.3-7.7) k/uL Lymphocytes # 0.4 L (1.0-4.8) k/uL PT 35.4 H (9.0-12.0) sec INR 3.6 H (<1.2) APTT (22.0-30.0) sec D-Dimer 0.61 H (<0.60) mg/L FEU Sodium (137-145) mmol/L Potassium (3.5-5.1) mmol/L Chloride (98-107) mmol/L BUN (9-20) mg/dL Creatinine (0.66-1.25) mg/dL Glucose (74-99) mg/dL Plasma Lactic Acid Cr (0.7-2.0) mmol/L Calcium (8.4-10.2) mg/dL AST (17-59) U/L ALT (4-49) U/L Albumin (3.5-5.0) g/dL Procalcitonin (0.02-0.09) ng/mL Coronavirus (PCR) (Not Detectd) Assessment and Plan Assessment: Bilateral Covid pneumonia Acute hypoxic respiratory failure Increased inflammatory markers Possible chronic kidney disease, stage II or 3 Chronic atrial fibrillation on Coumadin Plan: This is a pleasant 66 years old male who presents with bilateral covid pneumonia Continue with dexamethasone Continue with vitamin C, vitamin D and zinc Pulmonary consult Labs and medication were reviewed.. Continue same treatment. Continue with symptomatic treatment. Resume home medication. Monitor lytes and vitals. DVT and GI prophylaxis. Further recommendationsas per clinical course of the patient DVT prophylaxis: Subcutaneous heparin GI Prophylaxis: Pepcid PT/OT: Pending Prognosis is guarded
[2021-11-28] MEDS ORDERED: REMDESIVIR 200 MG in SODIUM CHLORIDE 0.9% 250 ML IVPB ONE (14:30)
--- NOTE | 2021-11-28 14:58 | P.CNPUL ---
History of Present Illness Consult date: 11/28/21 Requesting physician: Fredi Ferguson Reason for consult: dyspnea, cough, hypoxemia, pneumonia, abnormal CXR/CT Chief complaint: Shortness of breath. History of present illness: Pulmonary consult dated 04/28/2022. 66-year-old male who was seen in room 483. The patient was seen in the emergency department on November 27, brought in by EMS, for shortness of breath. He states he hasn't been feeling well for 3 or 4 days. He complains of shortness of breath, cough, body aches, weakness, and fatigue. Apparently, his tested positive for coronavirus last week. The patient has not been pre viously vaccinated. He apparently does have a history of both hypertension and atrial fibrillation. He also suffers from sleep apnea syndrome and uses BiPAP. Currently, the patient's on 2 L nasal cannula. His temperature was 98.6 heart rate 99 respiratory rate 20 and blood pressure 156/83. White count was 7.3, hemoglobin 12.3, hematocrit 36.2, with a normal platelet count. PT 35.4 with an INR 3.6. D-dimer was only 0.61. Sodium 132, potassium 2.6, chlorides 96, CO2 26, anion gap 10, BUN 31, and creatinine 1.41. Initial lactic acid was 3.4. Follow-up was 1.9. AST was 112, ALT 67. Pro-calcitonin level was 0.12. Testing for coronavirus was positive. Chest x-ray show some abnormalities particularly in the right mid and lower lung villasenor, mostly in the peripheral lung villasenor. Review of Systems REVIEW OF SYSTEMS: CONSTITUTIONAL: Weakness and fatigue. NEUROLOGIC: [ Negative.] HEENT: [ Negative.] CARDIAC: [Negative.] PULMONARY: Cough and shortness of breath. GI: [Negative.] : [Negative.] RHEUMATOLOGIC: Muscle and joint aches. IMMUNOLOGIC: [ Negative.] ENDOCRINE: [Negative. ] DERMATOLOGIC: [Negative.] Past Medical History Past Medical History: Atrial Fibrillation, Hypertension, Prostate Disorder Additional Past Medical History / Comment(s): afib History of Any Multi-Drug Resistant Organisms: None Reported Past Surgical History: Orthopedic Surgery Additional Past Surgical History / Comment(s): eyes, nasal, L foot, lower back, R hand Past Anesthesia/Blood Transfusion Reactions: No Reported Reaction Past Psychological History: No Psychological Hx Reported Smoking Status: Former smoker Past Alcohol Use History: Rare Past Drug Use History: None Reported - Past Family History Mother Family Medical History: AFIB, Congestive Heart Failure (CHF), Hypertension, Myocardial Infarction ([place]) Medications and Allergies Home Medications Medication Instructions Recorded Confirmed Type Metoprolol Succinate [Toprol Xl] 100 mg PO HS 02/17/18 11/27/21 History lisinopriL 40 mg PO W/LUNCH 02/17/18 11/27/21 History Warfarin [Coumadin] 7.5 mg PO MOFR@1700 12/17/20 11/27/21 History Warfarin [Coumadin] 10 mg PO SUTUWETHSA@1700 12/17/20 11/27/21 History Chlorthalidone 25 mg PO W/BRKFST 11/27/21 11/27/21 History Flecainide [Tambocor] 50 mg PO BID 11/27/21 11/27/21 History Allergies Allergy/AdvReac Type Severity Reaction Status Date / Time No Known Allergies Allergy Verified 11/27/21 16:00 Physical Exam Osteopathic Statement: *. No significant issues noted on an osteopathic struct ural exam other than those noted in the History and Physical/Consult. Vitals: Vital Signs Temp Pulse Pulse Resp BP BP Pulse Ox 11/28/21 13:20 98.6 F 99 20 156/83 90 L 11/28/21 08:27 97.8 F 78 18 160/87 92 L 11/28/21 08:00 18 11/28/21 05:49 98.2 F 82 19 132/73 94 L 11/28/21 02:19 97.6 F 87 18 143/85 90 L 11/27/21 20:33 98.1 F 97 17 155/81 95 11/27/21 19:40 99.2 F 98 22 109/64 94 L 11/27/21 18:03 96 22 156/82 94 L 11/27/21 16:55 85 18 86 L 11/27/21 16:22 90 24 152/82 93 L 11/27/21 15:30 80 24 130/76 94 L 11/27/21 15:00 84 24 108/77 94 L Intake and Output 11/27/21 11/28/21 11/28/21 22:59 06:59 14:59 Other: # Voids 4 Weight 226.796 kg No acute distress, oriented 3. No audible wheezing, use of accessory muscles, or conversational dyspnea. HEENT examination is grossly unremarkable. Neck supple. Full range of motion. No adenopathy thyromegaly or neck vein distention. Cardiovascular examination reveals regular rhythm rate. S1-S2 normal. No S3 or S4. No discernible murmur noted. Heart sounds are distant. Heart rate 82 bpm. Lungs reveal scattered bilateral rhonchi. Bibasilar crackles are noted. Mild expiratory wheezes are also appreciated. Breath sounds are equal bilaterally. Saturations are 92% on 2 L. Abdomen obese, with bowel sounds. No masses. Extremities are intact. No cyanosis clubbing or edema. Skin is without rash or lesion. Neurologic examination is brief but nonfocal. Results - Laboratory Findings CBC and BMP: 11/28/21 04:29 11/27/21 15:38 PT/INR, D-dimer PT 35.4 sec (9.0-12.0) H 11/28/21 04:29 INR 3.6 (<1.2) H 11/28/21 04:29 D-Dimer 0.61 mg/L FEU (<0.60) H 11/28/21 04:29 Abnormal lab findings: Abnormal Labs 11/27/21 11/27/21 11/27/21 14:48 15:38 15:38 RBC Hgb 12.9 L Hct 37.4 L Neutrophils # 8.5 H Lymphocytes # 0.5 L PT 38.5 H INR 3.9 H APTT 37.4 H D-Dimer 0.70 H Sodium Potassium Chloride BUN Creatinine Glucose Plasma Lactic Acid Cr Calcium AST ALT Albumin Procalcitonin Coronavirus (PCR) Detected A 11/27/21 11/27/21 11/27/21 15:38 15:38 15:38 RBC Hgb Hct Neutrophils # Lymphocytes # PT INR APTT D-Dimer Sodium 132 L Potassium 2.6 L* Chloride 96 L BUN 31 H Creatinine 1.41 H Glucose 151 H Plasma Lactic Acid Cr 3.1 H* Calcium 7.8 L AST 112 H ALT 67 H Albumin 3.4 L Procalcitonin 0.12 H Coronavirus (PCR) 11/27/21 11/27/21 11/28/21 18:27 22:09 01:29 RBC Hgb Hct Neutrophils # Lymphocytes # PT INR APTT D-Dimer Sodium Potassium Chloride BUN Creatinine Glucose Plasma Lactic Acid Cr 3.5 H* 3.4 H* 2.7 H* Calcium AST ALT Albumin Procalcitonin Coronavirus (PCR) 11/28/21 11/28/21 04:29 04:29 RBC 4.27 L Hgb 12.3 L Hct 36.2 L Neutrophils # Lymphocytes # 0.4 L PT 35.4 H INR 3.6 H APTT D-Dimer 0.61 H Sodium Potassium Chloride BUN Creatinine Glucose Plasma Lactic Acid Cr Calcium AST ALT Albumin Procalcitonin Coronavirus (PCR) - Diagnostic Findings Chest x-ray: image reviewed Assessment and Plan Assessment: Hypoxemic respiratory failure secondary to coronavirus associated pneumonia. History of chronic atrial fibrillation. History of hypertension. History of obstructive sleep apnea syndrome. History of BPH. Prior history of tobacco use. Morbid obesity. Plan: Plan dated 11/28/2021. The patient should get vitamin C, vitamin D3, and zinc. In addition, the patient would be a candidate for REM. Also, the patient should get Decadron 6 mg a day either orally or IV for a total of 10 days. The patient is already on Coumadin, and hence does not need Lovenox. We'll continue to follow make recommendations where appropriate. The patient apparently did receive Sotrovimab on the . I suspect a thought the patient had the Omicron variant. Prognosis is guarded. Time with Patient: Greater than 30
[2021-11-28 16:13] LABS: C Reactive Protein 11.8 mg/dL (0.00-0.80)
[2021-11-28] MEDS ORDERED: WARFARIN 5 MG TAB PO SCH (17:00)
[2021-11-28 17:02] LABS: C Reactive Protein 13.6 mg/dL (0.00-0.80); Magnesium 2.2 mg/dL (1.5-2.4)
[2021-11-28 17:09] LABS: African American GFR (CKD) 66 (>60 ml/min/1.73 sqM); Anion Gap 12 mmol/L; Blood Urea Nitrogen 29 mg/dL (9-20); Calcium 7.8 mg/dL (8.4-10.2); Carbon Dioxide 22 mmol/L (22-30); Chloride 102 mmol/L (98-107); Glucose 181 mg/dL (74-99); Non-African American GFR(CKD) 57 (>60 ml/min/1.73 sqM); Potassium 2.9 mmol/L (3.5-5.1); Sodium 136 mmol/L (137-145)
[2021-11-28 17:27] LABS: African American GFR (CKD) 66.8 (60.0-200.0); Anion Gap 18.5 mmol/L (10.00-18.00); BUN/Creat Ratio 20.15 Ratio (12.00-20.00); Blood Urea Nitrogen 26.2 mg/dL (9.0-27.0); Calcium 7.7 mg/dL (8.7-10.3); Carbon Dioxide 19.5 mmol/L (20.0-27.5); Non-African American GFR(CKD) 57.7 (60.0-200.0); Potassium 2.7 mmol/L (3.5-5.5)
[2021-11-28] MEDS ORDERED: Potassium Replacement Protocol 1 EACH MISC MISCELLANE PRN (17:41)
[2021-11-28] MEDS: POTASSIUM CHLORIDE ER 20 MEQ TAB.ER PO SCH ×3 (17:49→23:15)
[2021-11-28] MEDS ORDERED: WARFARIN 0.5 MG TAB PO ONE (18:00)
[2021-11-28] MEDS: METOPROLOL SUCCINATE (ER) 100 MG TAB.ER.24H PO SCH (21:33)
[2021-11-29] MEDS ORDERED: Potassium Replacement Protocol 1 EACH MISC MISCELLANE PRN (01:30)
[2021-11-29] MEDS: POTASSIUM CHLORIDE 20 MEQ in WATER FOR INJECTION 1 100ML.BAG IVPB SCH ×3 (02:00→08:11)
[2021-11-29] MEDS: POTASSIUM CHLORIDE ER 20 MEQ TAB.ER PO SCH ×3 (02:00→08:11)
[2021-11-29] MEDS: SODIUM CHLORIDE 0.9% 1,000 ML IV SCH ×3 (06:24→20:59)
[2021-11-29] MEDS: ASCORBIC ACID 500 MG TAB PO SCH (08:11)
[2021-11-29] MEDS: ZINC SULFATE 220 MG CAP PO SCH (08:11)
[2021-11-29] MEDS: DEXAMETHASONE SOD PHOSPHATE 10 MG/ML 1 ML VIAL IVP SCH (08:11)
[2021-11-29] MEDS: CHOLECALCIFEROL 25 MCG (1000 IU) TABLET PO SCH (08:11)
[2021-11-29] MEDS: FAMOTIDINE 20 MG TAB PO SCH (08:11)
[2021-11-29] MEDS: FLECAINIDE 50 MG TAB PO SCH ×2 (08:13→20:10)
[2021-11-29 11:06] LABS: INR 3.1 (<1.2)
[2021-11-29] MEDS: REMDESIVIR 100 MG in SODIUM CHLORIDE 0.9% 250 ML IVPB SCH (15:28)
--- NOTE | 2021-11-29 16:07 | P.PN ---
Subjective Progress Note Date: 11/29/21 Principal diagnosis: Coronavirus pneumonia. Pulmonary consult dated 04/28/2022. 66-year-old male who was seen in room 483. The patient was seen in the emergency department on November 27, brought in by EMS, for shortness of breath. He states he hasn't been feeling well for 3 or 4 days. He complains of shortness of breath, cough, body aches, weakness, and fatigue. Apparently, his tested positive for coronavirus last week. The patient has not been previously vaccinated. He apparently does have a history of both hypertension and atrial fibrillation. He also suffers from sleep apnea syndrome and uses BiPAP. Currently, the patient's on 2 L nasal cannula. His temperature was 98.6 heart rate 99 respiratory rate 20 and blood pressure 156/83. White count was 7.3, hemoglobin 12.3, hematocrit 36.2, with a normal platelet count. PT 35.4 with an INR 3.6. D-dimer was only 0.61. Sodium 132, potassium 2.6, chlorides 96, CO2 26, anion gap 10, BUN 31, and creatinine 1.41. Initial lactic acid was 3.4. Follow-up was 1.9. AST was 112, ALT 67. Pro-calcitonin level was 0.12. Testing for coronavirus was positive. Chest x-ray show some abnormalities particularly in the right mid and lower lung villasenor, mostly in the peripheral lung villasenor. Progress note dated 11/29/2021. 66-year-old male, again seen in room 483. He was seen yesterday in consultation. He was initially seen in the emergency room, on November 27. He came in for shortness of breath, for about 3 or 4 days. He also had cough, bodyaches, and weakness. He did test positive for coronavirus. Currently, he's on 5 L nasal cannula, and saline at 75 mL an hour. Lab data today includes a potassium of 2.8, a PT of 31, and INR of 3.1. No recent chest x-ray to review. Objective - Vital Signs Vital signs: Vital Signs Temp 98.8 F 11/29/21 14:00 Pulse 81 11/29/21 14:00 Resp 18 11/29/21 14:00 BP 155/73 11/29/21 14:00 Pulse Ox 92 L 11/29/21 14:00 Intake & Output 11/28/21 11/29/21 11/29/21 18:59 06:59 18:59 Other: Voiding Method Toilet # Voids 3 3 # Bowel Movements 2 - Exam No acute distress, oriented 3. No audible wheezing, use of accessory muscles, or conversational dyspnea. The patient is morbidly obese. HEENT examination is grossly unremarkable. Neck supple. Full range of motion. No adenopathy thyromegaly or neck vein distention. Cardiovascular examination reveals regular rhythm rate. S1-S2 normal. No S3 or S4. No discernible murmur noted. Heart sounds are distant. Heart rate 81 bpm. Lungs reveal scattered bilateral rhonchi. Bibasilar crackles are noted. Mild expiratory wheezes are also appreciated. Breath sounds are equal bilaterally. Saturations are 94% on 5 L nasal cannula. Abdomen obese, with bowel sounds. No masses. Extremities are intact. No cyanosis clubbing or edema. Skin is without rash or lesion. Neurologic examination is brief but nonfocal. - Labs CBC & Chem 7: 11/28/21 04:29 11/29/21 10:39 Labs: Abnormal Lab Results - Last 24 Hours (Table) 11/27/21 11/28/21 11/28/21 Range/Units 15:38 04:29 16:24 PT (9.0-12.0) sec INR (<1.2) Sodium 136 L (137-145) mmol/L Potassium 2.7 L* 2.9 L (3.5-5.5) mmol/L Carbon Dioxide 19.5 L (20.0-27.5) mmol/L Anion Gap 18.50 H (10.00-18.00) mmol/L BUN 29 H (9-20) mg/dL Creatinine 1.32 H (0.66-1.25) mg/dL Est GFR (CKD-EPI)NonAf 57.7 L (60.0-200.0) BUN/Creatinine Ratio 20.15 H (12.00-20.00) Ratio Glucose 203 H 181 H (70-110) mg/dL Calcium 7.7 L 7.8 L (8.7-10.3) mg/dL Ferritin 816.0 H (22.0-322.0) ng/mL Lactate Dehydrogenase 565 H (120-246) U/L C-Reactive Protein 11.80 H 13.60 H (0.00-0.80) mg/dL 11/29/21 11/29/21 Range/Units 00:27 10:39 PT 31.0 H (9.0-12.0) sec INR 3.1 H (<1.2) Sodium (137-145) mmol/L Potassium 2.8 L (3.5-5.5) mmol/L Carbon Dioxide (20.0-27.5) mmol/L Anion Gap (10.00-18.00) mmol/L BUN (9-20) mg/dL Creatinine (0.66-1.25) mg/dL Est GFR (CKD-EPI)NonAf (60.0-200.0) BUN/Creatinine Ratio (12.00-20.00) Ratio Glucose (70-110) mg/dL Calcium (8.7-10.3) mg/dL Ferritin (22.0-322.0) ng/mL Lactate Dehydrogenase (120-246) U/L C-Reactive Protein (0.00-0.80) mg/dL Assessment and Plan Assessment: Hypoxemic respiratory failure secondary to coronavirus associated pneumonia. History of chronic atrial fibrillation. History of hypertension. History of obstructive sleep apnea syndrome, currently on home BiPAP. History of BPH. Prior history of tobacco use. Morbid obesity. Plan: Plan dated 11/28/2021. The patient should get vitamin C, vitamin D3, and zinc. In addition, the patient would be a candidate for REM. Also, the patient should get Decadron 6 mg a day either orally or IV for a total of 10 days. The patient is already on Coumadin, and hence does not need Lovenox. We'll continue to follow make recomm endations where appropriate. The patient apparently did receive Sotrovimab on the . I suspect a thought the patient had the Omicron variant. Prognosis is guarded. Plan dated 11/29/2021. The patient's on albuterol inhaler, vitamin C, vitamin D3, Decadron, Coumadin, and we did start the patient on REM. The patient will get REM 200 mg on day 1, and 100 mg IV on day 2, 3, 4, and 5. Currently, the patient's on 5 L nasal cannula. The patient did receive monoclonal antibody on November 27. He was thought to have the Omicron variant. Clinically, the patient appears to be relatively stable. He is about the same today as he was yesterday. We will continue to follow make recommendations where appropriate. Prognosis is guarded. Time with Patient: Less than 30
--- NOTE | 2021-11-29 16:28 | P.PN ---
Subjective This is a pleasant 66-year-old patient who follows with Dr. Mays. Chronic stable medical conditions include atrial fibrillation on Coumadin, hypertension, morbid obesity, arthritis. Patient did not take the vaccine for COVID 19. 4 days ago patient started getting increasingly short of breath. Wheezing. Cough with some milky sputum. Fevers present. Decreased appetite tired rundown. No loss of smell or taste. No headache. Has some loose stools. Patient's significant other just recover from COVID 19. Patient tested positive for the s jacoby the ER. Was found to be significant hypoxic. 11/28/2021 This is a pleasant 66 years old male who presents with respiratory distress secondary to bilateral Covid pneumonia and mild hypoxic respiratory failure Currently is covered with dexamethasone, vitamin C, D and zinc. This morning he was still feeling some shortness of breath especially with talking although reports some improvement. Lactic acid came back to normal Chest x-ray showing bilateral infiltrate and cholelithiasis positive. Patient has not been vaccinated before D-dimer is stable at 0.6. 11/29/2021 Patient mild dyspnea and tachypnea looks like a day. However his oxygen requirements went up to 5 L/m. His LDH is slightly elevated at 565 and C-reactive protein at 13.6. Last creatinine yesterday was 1.3. His INR is 3.1, is supposed to take 7.5 mg his home dose however he will get in 4 mg only and will check INR tomorrow He was started on remdesivir today by pulmonary team Objective - Vital Signs Vital signs: Vital Signs Temp 98.0 F 11/29/21 10:21 Pulse 84 11/29/21 10:21 Resp 18 11/29/21 10:21 BP 156/83 11/29/21 10:21 Pulse Ox 92 L 11/29/21 10:21 Intake & Output 11/28/21 11/29/21 11/29/21 18:59 06:59 18:59 Other: Voiding Method Toilet # Voids 3 3 # Bowel Movements 2 - Exam -GENERAL: The patient is alert and oriented x3, not in any acute distress. Morbidly obese HEENT: Pupils are round and equally reacting to light. EOMI. No scleral icterus. No conjunctival pallor. Normocephalic, atraumatic. No pharyngeal erythema. No thyromegaly. CARDIOVASCULAR: S1 and S2 present. No murmurs, rubs, or gallops. PULMONARY: Chest is clear to auscultation, no wheezing or crackles. ABDOMEN: Soft, nontender, nondistended, normoactive bowel sounds. No palpable organomegaly. MUSCULOSKELETAL: No joint swelling or deformity. EXTREMITIES: No cyanosis, clubbing, or pedal edema. NEUROLOGICAL: Gross neurological examination did not reveal any focal deficits. SKIN: No rashes. no petechiae. - Labs CBC & Chem 7: 11/28/21 04:29 11/29/21 10:39 Labs: Abnormal Lab Results - Last 24 Hours (Table) 11/27/21 11/28/21 11/28/21 Range/Units 15:38 04: 16:24 PT (9.0-12.0) sec INR (<1.2) Sodium 136 L (137-145) mmol/L Potassium 2.7 L* 2.9 L (3.5-5.5) mmol/L Carbon Dioxide 19.5 L (20.0-27.5) mmol/L Anion Gap 18.50 H (10.00-18.00) mmol/L BUN 29 H (9-20) mg/dL Creatinine 1.32 H (0.66-1.25) mg/dL Est GFR (CKD-EPI)NonAf 57.7 L (60.0-200.0) BUN/Creatinine Ratio 20.15 H (12.00-20.00) Ratio Glucose 203 H 181 H (70-110) mg/dL Calcium 7.7 L 7.8 L (8.7-10.3) mg/dL Ferritin 816.0 H (22.0-322.0) ng/mL Lactate Dehydrogenase 565 H (120-246) U/L C-Reactive Protein 11.80 H 13.60 H (0.00-0.80) mg/dL 11/29/21 11/29/21 Range/Units 00:27 10:39 PT 31.0 H (9.0-12.0) sec INR 3.1 H (<1.2) Sodium (137-145) mmol/L Potassium 2.8 L (3.5-5.5) mmol/L Carbon Dioxide (20.0-27.5) mmol/L Anion Gap (10.00-18.00) mmol/L BUN (9-20) mg/dL Creatinine (0.66-1.25) mg/dL Est GFR (CKD-EPI)NonAf (60.0-200.0) BUN/Creatinine Ratio (12.00-20.00) Ratio Glucose (70-110) mg/dL Calcium (8.7-10.3) mg/dL Ferritin (22.0-322.0) ng/mL Lactate Dehydrogenase (120-246) U/L C-Reactive Protein (0.00-0.80) mg/dL Assessment and Plan Assessment: Bilateral Covid pneumonia Acute hypoxic respiratory failure Increased inflammatory markers Possible chronic kidney disease, stage II or 3 Chronic atrial fibrillation on Coumadin Plan: This is a pleasant 66 years old male who presents with bilateral covid pneumonia Continue with dexamethasone. Continue with remdesivir Continue with vitamin C, vitamin D and zinc Pulmonary consult Continue with Coumadin and monitor INR Labs and medication were reviewed.. Continue same treatment. Continue with symptomatic treatment. Resume home medication. Monitor lytes and vitals. DVT and GI prophylaxis. Further recommendationsas per clinical course of the patient DVT prophylaxis: Subcutaneous heparin GI Prophylaxis: Pepcid PT/OT: Pending Prognosis is guarded
[2021-11-29] MEDS ORDERED: WARFARIN 5 MG TAB PO SCH (17:00)
[2021-11-29] MEDS ORDERED: WARFARIN 2 MG TAB PO ONE (18:00)
[2021-11-29] MEDS: METOPROLOL SUCCINATE (ER) 100 MG TAB.ER.24H PO SCH (20:10)
[2021-11-29] MEDS: ACETAMINOPHEN TAB 325 MG TAB PO PRN (20:12)
[2021-11-29] MEDS: MELATONIN 3 MG TABLET PO PRN (20:13)
[2021-11-30] MEDS: SODIUM CHLORIDE 0.9% 1,000 ML IV SCH ×2 (06:35→19:36)
[2021-11-30 06:48] LABS: INR 2.4 (<1.2); Prothrombin Time 24.4 sec (9.0-12.0)
[2021-11-30] MEDS: CHOLECALCIFEROL 25 MCG (1000 IU) TABLET PO SCH (07:17)
[2021-11-30] MEDS: ASCORBIC ACID 500 MG TAB PO SCH (07:17)
[2021-11-30] MEDS: FLECAINIDE 50 MG TAB PO SCH ×2 (07:17→20:41)
[2021-11-30] MEDS: ZINC SULFATE 220 MG CAP PO SCH (07:17)
[2021-11-30] MEDS: FAMOTIDINE 20 MG TAB PO SCH (07:17)
[2021-11-30] MEDS: ALBUTEROL HFA INHALER INHALATION PRN (08:37)
[2021-11-30] MEDS: DEXAMETHASONE SOD PHOSPHATE 10 MG/ML 1 ML VIAL IVP SCH (08:41)
--- NOTE | 2021-11-30 14:15 | P.PN ---
Subjective Progress Note Date: 11/30/21 Principal diagnosis: Coronavirus pneumonia. Pulmonary consult dated 04/28/2022. 66-year-old male who was seen in room 483. The patient was seen in the emergency department on November 27, brought in by EMS, for shortness of breath. He states he hasn't been feeling well for 3 or 4 days. He complains of shortness of breath, cough, body aches, weakness, and fatigue. Apparently, his tested positive for coronavirus last week. The patient has not been previously vaccinated. He apparently does have a history of both hypertension and atrial fibrillation. He also suffers from sleep apnea syndrome and uses BiPAP. Currently, the patient's on 2 L nasal cannula. His temperature was 98.6 heart rate 99 respiratory rate 20 and blood pressure 156/83. White count was 7.3, hemoglobin 12.3, hematocrit 36.2, with a normal platelet count. PT 35.4 with an INR 3.6. D-dimer was only 0.61. Sodium 132, potassium 2.6, chlorides 96, CO2 26, anion gap 10, BUN 31, and creatinine 1.41. Initial lactic acid was 3.4. Follow-up was 1.9. AST was 112, ALT 67. Pro-calcitonin level was 0.12. Testing for coronavirus was positive. Chest x-ray show some abnormalities particularly in the right mid and lower lung villasenor, mostly in the peripheral lung villasenor. Progress note dated 11/29/2021. 66-year-old male, again seen in room 483. He was seen yesterday in consultation. He was initially seen in the emergency room, on November 27. He came in for shortness of breath, for about 3 or 4 days. He also had cough, bodyaches, and weakness. He did test positive for coronavirus. Currently, he's on 5 L nasal cannula, and saline at 75 mL an hour. Lab data today includes a potassium of 2.8, a PT of 31, and INR of 3.1. No recent chest x-ray to review. Progress note dated 11/30/2021. 66-year-old male, again seen in room 483. The patient was seen in consultation 2 days ago. Currently, he's on 5 L nasal cannula, and is getting saline at 75 mL an hour. He sitting up in a chair next to his bed. He states that he is feeling better. The patient had only been sick for about 3 or 4 days prior to admission. The patient was started on REM. Blood work today shows a PT of 24.4, and an INR of 2.4. His pro-calcitonin level was 0.08. No recent chest x- ray to report. Objective - Vital Signs Vital signs: Vital Signs Temp 99.4 F 11/30/21 10:00 Pulse 84 11/30/21 10:00 Resp 18 11/30/21 10:00 BP 159/76 11/30/21 10:00 Pulse Ox 97 11/30/21 10:00 Intake & Output 11/29/21 11/30/21 11/30/21 18:59 06:59 18:59 Intake Total 900 Balance 900 Intake: Intake, IV Titration 900 Amount Sodium Chloride 0.9% 1, 900 000 ml @ 130 mls/hr IV . Q7H42M [facility] Rx#:[id number] Other: Voiding Method Toilet # Voids 3 - Exam No acute distress, oriented 3. No audible wheezing, use of accessory muscles, or conversational dyspnea. The patient is morbidly obese. Saturations are 97% on 5 L nasal cannula. HEENT examination is grossly unremarkable. Neck supple. Full range of motion. No adenopathy thyromegaly or neck vein distention. Cardiovascular examination reveals regular rhythm rate. S1-S2 normal. No S3 or S4. No discernible murmur noted. Heart sounds are distant. Heart rate 84 bpm. Lungs reveal scattered bilateral rhonchi. Bibasilar crackles are noted. Mild expiratory wheezes are also appreciated. Breath sounds are equal bilaterally. Saturations are 97% on 5 L nasal cannula. Abdomen obese, with bowel sounds. No masses. Extremities are intact. No cyanosis clubbing or edema. Skin is without rash or lesion. Neurologic examination is brief but nonfocal. - Labs CBC & Chem 7: 11/28/21 04:29 11/29/21 10:39 Labs: Abnormal Lab Results - Last 24 Hours (Table) 11/30/21 Range/Units 05:51 PT 24.4 H (9.0-12.0) sec INR 2.4 H (<1.2) Assessment and Plan Assessment: Hypoxemic respiratory failure secondary to coronavirus associated pneumonia. History of chronic atrial fibrillation. History of hypertension. History of obstructive sleep apnea syndrome, currently on home BiPAP. History of BPH. Prior history of tobacco use. Morbid obesity. Plan: Plan dated 11/28/2021. The patient should get vitamin C, vitamin D3, and zinc. In addition, the patien t would be a candidate for REM. Also, the patient should get Decadron 6 mg a day either orally or IV for a total of 10 days. The patient is already on Coumadin, and hence does not need Lovenox. We'll continue to follow make recommendations where appropriate. The patient apparently did receive So trovimab on the . I suspect a thought the patient had the Omicron variant. Prognosis is guarded. Plan dated 11/29/2021. The patient's on albuterol inhaler, vitamin C, vitamin D3, Decadron, Coumadin, and we did start the patient on REM. The patient will get REM 200 mg on day 1, and 100 mg IV on day 2, 3, 4, and 5. Currently, the patient's on 5 L nasal cannula. The patient did receive monoclonal antibody on November 27. He was thought to have the Omicron variant. Clinically, the patient appears to be relatively stable. He is about the same today as he was yesterday. We will continue to follow make recommendations where appropriate. Prognosis is guarded. Plan dated 11/30/2021. The patient remains on albuterol inhaler, vitamin C, vitamin D3, Decadron, Coumadin, and day 3 of REM. The patient appears to be doing better. The patient did receive monoclonal antibody in November 2016. I believe he received Sotrovimab. Clinically, the patient does feel better. The patient does have some cough, and some phlegm production. Additional recommendations and suggestions are forthcoming. We will continue to follow make recommendations where appropriate. Prognosis is guarded. Time with Patient: Less than 30
[2021-11-30] MEDS: REMDESIVIR 100 MG in SODIUM CHLORIDE 0.9% 250 ML IVPB SCH (15:12)
[2021-11-30] MEDS ORDERED: WARFARIN 7.5 MG TAB PO ONE (18:00)
--- NOTE | 2021-11-30 18:11 | P.PN ---
Subjective This is a pleasant 66-year-old patient who follows with Dr. Mays. Chronic stable medical conditions include atrial fibrillation on Coumadin, hypertension, morbid obesity, arthritis. Patient did not take the vaccine for COVID 19. 4 days ago patient started getting increasingly short of breath. Wheezing. Cough with some milky sputum. Fevers present. Decreased appetite tired rundown. No loss of smell or taste. No headache. Has some loose stools. Patient's significant other just recover from COVID 19. Patient tested positive for the s jacoby the ER. Was found to be significant hypoxic. 11/28/2021 This is a pleasant 66 years old male who presents with respiratory distress secondary to bilateral Covid pneumonia and mild hypoxic respiratory failure Currently is covered with dexamethasone, vitamin C, D and zinc. This morning he was still feeling some shortness of breath especially with talking although reports some improvement. Lactic acid came back to normal Chest x-ray showing bilateral infiltrate and cholelithiasis positive. Patient has not been vaccinated before D-dimer is stable at 0.6. 11/29/2021 Patient mild dyspnea and tachypnea looks like a day. However his oxygen requirements went up to 5 L/m. His LDH is slightly elevated at 565 and C-reactive protein at 13.6. Last creatinine yesterday was 1.3. His INR is 3.1, is supposed to take 7.5 mg his home dose however he will get in 4 mg only and will check INR tomorrow He was started on remdesivir today by pulmonary team 11/30/2021 Patient here for bilateral Covid pneumonia, his breathing is quiet and is less tachypneic. He is on 4-5 L of oxygen per minute. He has good appetite no diarrhea. His INR is 2.4 and his receiving his home dose of Coumadin 4 mg for his history of atrial fibrillation His pro-calcitonin on 0.08. Distal on dexamethasone, vitamin C, D, zinc, remdesivir Objective - Vital Signs Vital signs: Vital Signs Temp 99.4 F 11/30/21 06:16 Pulse 79 11/30/21 06:16 Resp 18 11/30/21 06:16 BP 150/82 11/30/21 06:16 Pulse Ox 97 11/30/21 06:16 Intake & Output 01/29/22 01/30/22 01/30/22 18:59 06:59 18:59 Intake Total 900 Balance 900 Intake: Intake, IV Titration 900 Amount Sodium Chloride 0.9% 1, 900 000 ml @ 130 mls/hr IV . Q7H42M [facility] Rx#:[id number] Other: Voiding Method Toilet # Voids 3 - Exam -GENERAL: The patient is alert and oriented x3, not in any acute distress. Morbidly obese HEENT: Pupils are round and equally reacting to light. EOMI. No scleral icterus. No conjunctival pallor. Normocephalic, atraumatic. No pharyngeal erythema. No thyromegaly. CARDIOVASCULAR: S1 and S2 present. No murmurs, rubs, or gallops. PULMONARY: Chest is clear to auscultation, no wheezing or crackles. ABDOMEN: Soft, nontender, nondistended, normoactive bowel sounds. No palpable organomegaly. MUSCULOSKELETAL: No joint swelling or deformity. EXTREMITIES: No cyanosis, clubbing, or pedal edema. NEUROLOGICAL: Gross neurological examination did not reveal any focal deficits. SKIN: No rashes. no petechiae. - Labs CBC & Chem 7: 11/28/21 04:29 11/29/21 10:39 Labs: Abnormal Lab Results - Last 24 Hours (Table) 11/29/21 11/30/21 Range/Units 10:39 05:51 PT 31.0 H 24.4 H (9.0-12.0) sec INR 3.1 H 2.4 H (<1.2) Assessment and Plan Assessment: Bilateral Covid pneumonia Acute hypoxic respiratory failure Increased inflammatory markers Possible chronic kidney disease, stage II or 3 Chronic atrial fibrillation on Coumadin Plan: This is a pleasant 66 years old male who presents with bilateral covid pneumonia Continue with dexamethasone. Continue with remdesivir Continue with vitamin C, vitamin D and zinc Pulmonary consult Continue with Coumadin and monitor INR Labs and medication were reviewed.. Continue same treatment. Continue with symptomatic treatment. Resume home medication. Monitor lytes and vitals. DVT and GI prophylaxis. Further recommendations as per clinical course of the patient DVT prophylaxis: Subcutaneous heparin GI Prophylaxis: Pepcid PT/OT: Pending Prognosis is guarded
[2021-11-30] MEDS: METOPROLOL SUCCINATE (ER) 100 MG TAB.ER.24H PO SCH (20:40)
[2021-11-30] MEDS: MELATONIN 3 MG TABLET PO PRN (20:40)
[2021-11-30] MEDS: ACETAMINOPHEN TAB 325 MG TAB PO PRN (20:41)
[2021-12-01 06:07] LABS: INR 2.2 (<1.2); Prothrombin Time 21.8 sec (9.0-12.0)
[2021-12-01] MEDS: ZINC SULFATE 220 MG CAP PO SCH (07:31)
[2021-12-01] MEDS: CHOLECALCIFEROL 25 MCG (1000 IU) TABLET PO SCH (07:31)
[2021-12-01] MEDS: DEXAMETHASONE SOD PHOSPHATE 10 MG/ML 1 ML VIAL IVP SCH (07:31)
[2021-12-01] MEDS: FAMOTIDINE 20 MG TAB PO SCH (07:31)
[2021-12-01] MEDS: ASCORBIC ACID 500 MG TAB PO SCH (07:31)
[2021-12-01] MEDS: FLECAINIDE 50 MG TAB PO SCH ×2 (07:32→20:22)
[2021-12-01] MEDS: ALBUTEROL HFA INHALER INHALATION PRN ×3 (08:47→20:03)
--- NOTE | 2021-12-01 13:36 | P.PN ---
Subjective Progress Note Date: 12/01/21 Principal diagnosis: COVID-19 On 12/01/2021 patient seen in follow-up on medical surgical floor, he is sitting up in the recliner, breathing comfortably, he is currently on 4 L of oxygen pulse ox is 96%, he is having a productive cough. Patient is coughing up moderate amount of yellow colored phlegm which will be collected for culture, he currently remains on Decadron 6 mg daily, he is on Remdesivir treatment today's day 3, And is on Coumadin and tonight he will receive 10 mg. he is on multivitamins. His been wearing his CPAP device from home and bedtime, labs had been reviewed, his INR is 2.2, potassium level was negative, as a d-dimer from 11/20/2021 was at 0.61, his LDH was 565, CRP was 13.6. Objective - Vital Signs Vital signs: Vital Signs Temp 97.7 F 12/01/21 06:08 Pulse 66 12/01/21 06:08 Resp 18 12/01/21 06:08 BP 124/79 12/01/21 06:08 Pulse Ox 96 12/01/21 06:08 Intake & Output 11/30/21 12/01/21 12/01/21 18:59 06:59 18:59 Other: Voiding Method Toilet # Voids 3 2 - Exam GENERAL EXAM: 66-year-old white male patient, sitting up in the recliner, breathing comfortable, he is on 4 L of oxygen pulse ox 96%, comfortable in no apparent distress. HEAD: Normocephalic/atraumatic. EYES: Normal reaction of pupils, equal size. Conjunctiva pink, sclera white. NOSE: Clear with pink turbinates. THROAT: No erythema or exudates. NECK: No masses, no JVD, no thyroid enlargement, no adenopathy. CHEST: No chest wall deformity. Symmetrical expansion. LUNGS: Equal air entry with bibasilar crackles CVS: Regular rate and rhythm, normal S1 and S2, no gallops, no murmurs, no rubs ABDOMEN: Soft, nontender. No hepatosplenomegaly, normal bowel sounds, no guarding or rigidity. EXTREMITIES: No clubbing, no edema, no cyanosis, 2+ pulses and upper and lower extremities. MUSCULOSKELETAL: Muscle strength and tone normal. SPINE: No scoliosis or deformity SKIN: No rashes CENTRAL NERVOUS SYSTEM: awake and alert, breathing comfortable, sitting up in the chair, following command. No focal deficits, tone is normal in all 4 extremities. - Labs CBC & Chem 7: 11/28/21 04:29 11/29/21 10:39 Labs: Abnormal Lab Results - Last 24 Hours (Table) 12/01/21 Range/Units 05:33 PT 21.8 H (9.0-12.0) sec INR 2.2 H (<1.2) Assessment and Plan Plan: Assessment: #1. Acute hypoxic respiratory failure related to acute COVID-19 related pneumonia. Patient was started on Remdesivir on 11/29/2021. #2. History of chronic A. fib on Coumadin #3. Hypertension #4. History of obstructive sleep apnea on CPAP #5. Prior history of tobacco use #6. Morbid obesity Plan: No worsening dyspnea, patient is on 4 L of oxygen, continue weaning FiO2 to keep O2 sats her she is at above 90% Continue Decadron, continue Remdesivir, today's day 3 of treatment. Send a sputum for culture Obtain a follow-up inflammatory markers, Follow-up chest x-ray tomorrow Continue to follow his clinical course Encouraged the patient to continue wearing his home CPAP from home I performed a history & physical examination of the patient and discussed their management with my nurse practitioner, Charley Oviedo. I reviewed the nurse practitioner's note and agree with the documented findings and plan of care. Lung sounds are positive for dim breath sounds throughout the lung villasenor. The findings and the impression was discussed with the patient. I attest to the documentation by the nurse practitioner. Time with Patient: Less than 30
[2021-12-01] MEDS: REMDESIVIR 100 MG in SODIUM CHLORIDE 0.9% 250 ML IVPB SCH (14:33)
[2021-12-01] MEDS: SODIUM CHLORIDE 0.9% 1,000 ML IV SCH (15:13)
[2021-12-01] MEDS ORDERED: WARFARIN 5 MG TAB PO ONE (18:00)
[2021-12-01] MEDS: METOPROLOL SUCCINATE (ER) 100 MG TAB.ER.24H PO SCH (20:22)
[2021-12-01] MEDS: MELATONIN 3 MG TABLET PO PRN (20:22)
[2021-12-01] MEDS: ACETAMINOPHEN TAB 325 MG TAB PO PRN (20:23)
--- NOTE | 2021-12-01 20:56 | P.PN ---
Progress Note - Text Progress Note Date: 12/01/21 Chief Complaint: Short of breath This is a pleasant 66-year-old patient who follows with Dr. Mays. Chronic stable medical conditions include atrial fibrillation on Coumadin, hypertension, morbid obesity, arthritis. Patient did not take the vaccine for COVID 19. 4 days ago patient started getting increasingly short of breath. Wheezing. Cough with some milky sputum. Fevers present. Decreased appetite tired rundown. No loss of smell or taste. No headache. Has some loose stools. Patient's significant other just recover from COVID 19. Patient tested positive for the same the ER. Was found to be significant hypoxic. Admitted with COVID 19 pneumonitis, acute hypoxic respiratory failure, hyponatremia, hypokalemia, acute kidney injury. Started on Decadron, Remdesivir oxygen supplementation. December 01: Coughing up some yellow sputum. Up in a chair. Oral intake fair. Incentive spirometry ordered. On 4 L nasal cannula. Steroids, Remdesivir Review of systems: Was done for constitutional, cardiovascular, GI, pulmonary. relevant finding as above Active Medications Acetaminophen (Acetaminophen Tab 325 Mg Tab) 650 mg PO Q6HR PRN PRN Reason: Mild Pain or Fever > 100.5 Last Admin: 12/01/21 20:23 Dose: 650 mg Documented by: Albuterol Sulfate (Albuterol Hfa Inhaler) 2 puff INHALATION RT-Q6H PRN PRN Reason: Shortness Of Breath Or Wheezing Last Admin: 12/01/21 20:03 Dose: 2 puff Documented by: Ascorbic Acid (Ascorbic Acid 500 Mg Tab) 1,000 mg PO DAILY [facility] Last Admin: 12/01/21 07:31 Dose: 1,000 mg Documented by: Calcium Carbonate/Glycine (Calcium Carbonate 500 Mg Chewable) 1,000 mg PO Q4HR PRN PRN Reason: Dyspepsia Cholecalciferol (Cholecalciferol 25 Mcg (1000 Iu) Tablet) 50 mcg PO DAILY [facility] Last Admin: 12/01/21 07:31 Dose: 50 mcg Documented by: Dexamethasone Sodium Phosphate (Dexamethasone Sod Phosphate 10 Mg/Ml 1 Ml Vial) 6 mg IVP DAILY [facility] Stop: 12/06/21 09:01 Last Admin: 12/01/21 07:31 Dose: 6 mg Documented by: Famotidine (Famotidine 20 Mg Tab) 40 mg PO DAILY [facility] Last Admin: 12/01/21 07:31 Dose: 40 mg Documented by: Flecainide Acetate (Flecainide 50 Mg Tab) 50 mg PO BID [facility] Last Admin: 12/01/21 20:22 Dose: 50 mg Documented by: Sodium Chloride (Saline 0.9%) 1,000 mls @ 20 mls/hr IV .Q24H [facility] Last Admin: 12/01/21 15:13 Dose: Not Given Documented by: Remdesivir 100 mg/ Sodium (Chloride) 250 mls @ 250 mls/hr IVPB DAILY@1400 [facility] Stop: 12/02/21 14:59 Last Admin: 12/01/21 14:33 Dose: 250 mls/hr Documented by: Lactulose (Lactulose 20 Gm/30 Ml Cup) 20 gm PO DAILY PRN PRN Reason: Constipation Melatonin (Melatonin 3 Mg Tablet) 3 mg PO HS PRN PRN Reason: Insomnia Last Admin: 12/01/21 20:22 Dose: 3 mg Documented by: Metoprolol Succinate (Metoprolol Succinate (Er) 100 Mg Tab.Er.24h) 100 mg PO HS [facility] Last Admin: 12/01/21 20:22 Dose: 100 mg Documented by: Miscellaneous Information (Warfarin Per Pharmacy) 0 each MISCELLANE DIRECTED PRN PRN Reason: PHARMACY DOSING PROTOCOL Miscellaneous Information (Potassium Replacement Protocol 1 Each [facility]) 1 each MISCELLANE DAILY PRN; Protocol PRN Reason: Per Protocol Naloxone HCl (Naloxone 0.4 Mg/Ml 1 Ml Vial) 0.2 mg IV Q2M PRN PRN Reason: Opioid Reversal Ondansetron HCl (Ondansetron 4 Mg/2 Ml Vial) 4 mg IVP Q8HR PRN PRN Reason: Nausea And Vomiting Zinc Sulfate (Zinc Sulfate 220 Mg Cap) 220 mg PO DAILY [facility] Last Admin: 12/01/21 07:31 Dose: 220 mg Documented by: Past medical history to include: Atrial fibrillation, hypertension, morbid obesity Social history: Lives with his significant other. Alcohol rarely. No smoking. 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 Family history: Congestive heart failure, hypertension, [place] Physical examination: VITAL SIGNS: 98.6, 95, 18, 138/79, 94% on 4 L GENERAL: Up in a chair, short of breath PSYCH: Alert and oriented x3; mood and affect anxious. NEUROLOGICAL: Cranial nerves grossly intact; no facial asymmetry, moving all 4 limbs Rest of the exam per pulmonary and nursing INVESTIGATIONS, reviewed in the clinical context: December 01: INR 2.2 Pro-calcitonin 0.08 White count 10 hemoglobin 12.9 platelets 279 INR 3.9 d-dimer 0.7 sodium 132 potassium 2.6 BUN 31 and creatinine 1.41 Lactic acid 3.1 AST 112 ALT 67 Troponin I 0.024, 0.027, 0.025 Coronavirus [PCR]: Detected EKG tracing personally reviewed by me-normal sinus rhythm. Nonspecific T and ST segment changes. Chest x-ray film personally reviewed by me-bilateral infiltrates Assessment and plan: -Acute bilateral COVID-19 infiltrates. Symptoms present for 4 days. Did not take the COVID-19 vaccine. Dexamethasone, vitamin C, vitamin D, continue Coumadin. IV Remdesivir -Acute hypoxic respiratory failure from COVID 19: Slow to respond 4 L oxygen -Coumadin monitoring -Hyponatremia from decreased oral intake: Better Encourage food intake -Severe hypokalemia, patient is on chlorthalidone Replace potassium -Acute kidney injury, likely prerenal DC chlorthalidone, DC lisinopril. IV fluids -Hepatitis, likely hepatic steatosis. Could be from COVID 19. Liver ultrasound down the road -Mild hypoalbuminemia Acute phase reactant -Morbid obesity BMI 60.9 Weight loss measures Dexamethasone. 4 L oxygen. Liver ultrasound. Repeat CMP. Incentive spirometry. IV Remdesivir
[2021-12-02 00:05] VITALS: RESP 18
[2021-12-02 07:16] LABS: ALT 55 U/L (4-49); AST 43 U/L (17-59); African American GFR (CKD) >90 (>60 ml/min/1.73 sqM); Albumin 3.1 g/dL (3.5-5.0); Albumin/Globulin Ratio 0.9; Alkaline Phosphatase 45 U/L (38-126); Anion Gap 11 mmol/L; Blood Urea Nitrogen 23 mg/dL (9-20); Carbon Dioxide 25 mmol/L (22-30); Chloride 102 mmol/L (98-107); Globulin 3.5 g/dL; Glucose 123 mg/dL (74-99); LDH 1282 U/L (313-618); Non-African American GFR(CKD) 89 (>60 ml/min/1.73 sqM); Potassium 3.6 mmol/L (3.5-5.1); Sodium 138 mmol/L (137-145); Total Bilirubin 0.6 mg/dL (0.2-1.3); Total Protein 6.6 g/dL (6.3-8.2)
[2021-12-02 07:25] LABS: INR 2.7 (<1.2); Prothrombin Time 26.7 sec (9.0-12.0)
[2021-12-02 07:28] LABS: C Reactive Protein 13.9 mg/dL (<1.0)
[2021-12-02] MEDS: DEXAMETHASONE SOD PHOSPHATE 10 MG/ML 1 ML VIAL IVP SCH (08:04)
[2021-12-02] MEDS: CHOLECALCIFEROL 25 MCG (1000 IU) TABLET PO SCH (08:04)
[2021-12-02] MEDS: FAMOTIDINE 20 MG TAB PO SCH (08:04)
[2021-12-02] MEDS: FLECAINIDE 50 MG TAB PO SCH (08:04)
[2021-12-02] MEDS: ZINC SULFATE 220 MG CAP PO SCH (08:04)
[2021-12-02] MEDS: ASCORBIC ACID 500 MG TAB PO SCH (08:04)
--- NOTE | 2021-12-02 08:37 | XR ---
EXAMINATION TYPE: XR chest 1V portable DATE OF EXAM: 12/02/2021 HISTORY: Shortness of breath. COMPARISON: 11/27/2021 TECHNIQUE: Single view of the chest is submitted. FINDINGS: Demonstrated are scattered senescent parenchymal change. Increasing basilar infiltrates compatible with Covid 19 pneumonia The heart is stable. Hilar and mediastinal structures are within normal limits. Degenerative changes are seen of the dorsal spine. IMPRESSION: 1. Increasing basilar infiltrates compatible with Covid 19 pneumonia
--- NOTE | 2021-12-02 08:39 | US ---
EXAMINATION TYPE: US abdomen limited DATE OF EXAM: 12/02/2021 COMPARISON: NONE CLINICAL HISTORY: Elevated liver enzymes. Abnormal labs EXAM MEASUREMENTS: Liver Length: 21.7 cm Gallbladder Wall: Not seen cm CBD: not seen cm Right Kidney: 11.0 x 5.3 x 5.3 cm Pancreas: Obscured by bowel gas Liver: Obscured by overlying bowel gas Gallbladder: Obscured by overlying bowel gas Evidence for sonographic Mathews's sign: No CBD: Obscured by overlying bowel gas Right Kidney: Obscured by overlying bowel gas Very limited exam due to patient body habitus. IMPRESSION: Limited study
[2021-12-02] MEDS: ALBUTEROL HFA INHALER INHALATION PRN (08:59)
[2021-12-02 10:18] VITALS: BP 133/76; PULSE 88; TEMP 98.2
[2021-12-02] MEDS ORDERED: LEVOFLOXACIN 500 MG TAB PO SCH (11:00)
[2021-12-02] MEDS: REMDESIVIR 100 MG in SODIUM CHLORIDE 0.9% 250 ML IVPB SCH (12:44)
--- NOTE | 2021-12-02 14:05 | P.PN ---
Subjective Progress Note Date: 12/02/21 Principal diagnosis: COVID-19 On 12/01/2021 patient seen in follow-up on medical surgical floor, he is sitting up in the recliner, breathing comfortably, he is currently on 4 L of oxygen pulse ox is 96%, he is having a productive cough. Patient is coughing up moderate amount of yellow colored phlegm which will be collected for culture, he currently remains on Decadron 6 mg daily, he is on Remdesivir treatment today's day 3, And is on Coumadin and tonight he will receive 10 mg. he is on multivitamins. His been wearing his CPAP device from home and bedtime, labs had been reviewed, his INR is 2.2, potassium level was negative, as a d-dimer from 11/20/2021 was at 0.61, his LDH was 565, CRP was 13.6. On 12/02/2021 patient seen in follow-up on medical surgical floor, he is resting comfortably in the recliner, he is currently on room air with pulse ox of 94%, breathing comfortably, still coughing up some yellow colored phlegm, sputum culture has been sent and results are pending, preliminary Gram stain showing moderate PMNs, many gram-positive cocci and few gram-negative bacilli, rare gram-positive bacilli, rare gram-negative cocci and rare yeast. Patient contin ues on Remdesivir today is his fourth day of treatment. Overall he is feeling better, his been afebrile, vital signs have been stable. Follow-up chest x-ray showing increased basilar infiltrates related to COVID-19 pneumonia. Clinically patient has been stable, improving. INR is 2.7, d-dimer is 1.44. Electrolytes are within normal limits, BUN is 23, creatinine 0.91, pro calcitonin level was n egative at 0.08. Objective - Vital Signs Vital signs: Vital Signs Temp 98.2 F 12/02/21 10:00 Pulse 88 12/02/21 10:00 Resp 18 12/02/21 10:00 BP 133/76 12/02/21 10:00 Pulse Ox 94 L 12/02/21 10:00 Intake & Output 12/01/21 12/02/21 12/02/21 18:59 06:59 18:59 Other: Voiding Method Toilet # Voids 2 - Exam GENERAL EXAM: 66-year-old white male patient, sitting up in the recliner, breathing comfortable, he is on 4 L of oxygen pulse ox 94%, comfortable in no apparent distress. HEAD: Normocephalic/atraumatic. EYES: Normal reaction of pupils, equal size. Conjunctiva pink, sclera white. NOSE: Clear with pink turbinates. THROAT: No erythema or exudates. NECK: No masses, no JVD, no thyroid enlargement, no adenopathy. CHEST: No chest wall deformity. Symmetrical expansion. LUNGS: Equal air entry with bibasilar crackles CVS: Regular rate and rhythm, normal S1 and S2, no gallops, no murmurs, no rubs ABDOMEN: Soft, nontender. No hepatosplenomegaly, normal bowel sounds, no guarding or rigidity. EXTREMITIES: No clubbing, no edema, no cyanosis, 2+ pulses and upper and lower extremities. MUSCULOSKELETAL: Muscle strength and tone normal. SPINE: No scoliosis or deformity SKIN: No rashes CENTRAL NERVOUS SYSTEM: awake and alert, breathing comfortable, sitting up in the chair, following command. No focal deficits, tone is normal in all 4 extremities. - Labs CBC & Chem 7: 11/28/21 04:29 12/02/21 06:17 Labs: Abnormal Lab Results - Last 24 Hours (Table) 12/02/21 12/02/21 Range/Units 06:17 06:35 PT 26.7 H (9.0-12.0) sec INR 2.7 H (<1.2) D-Dimer 1.44 H (<0.60) mg/L FEU BUN 23 H (9-20) mg/dL Glucose 123 H (74-99) mg/dL Calcium 8.0 L (8.4-10.2) mg/dL ALT 55 H (4-49) U/L Lactate Dehydrogenase 1282 H (313-618) U/L C-Reactive Protein 13.9 H (<1.0) mg/dL Albumin 3.1 L (3.5-5.0) g/dL Microbiology - Last 24 Hours (Table) 12/01/21 12:19 Gram Stain - Preliminary Sputum Sputum Culture - Preliminary Assessment and Plan Plan: Assessment: #1. Acute hypoxic respiratory failure related to acute COVID-19 related pneumonia. Patient was started on Remdesivir on 11/29/2021. #2. History of chronic A. fib on Coumadin #3. Hypertension #4. History of obstructive sleep apnea on CPAP #5. Prior history of tobacco use #6. Morbid obesity Plan: Clinically patient continues to improve Currently on room air No fever or chills Follow-up chest x-ray has been reviewed Patient is on day 4 of Remdesivir Continues on Decadron We'll place the patient on 5 day course of oral Levaquin 500 mg daily Still awaiting sputum cultures From pulmonary perspective patient can be considered for discharge home today Complete 10 day course of oral Decadron Complete 5 day course of oral Levaquin 500 mg daily Continue multivitamins Continue Coumadin Follow-up with Dr. Davies in the office in 1 or 2 weeks I performed a history & physical examination of the patient and discussed their management with my nurse practitioner, Charley Oviedo. I reviewed the nurse practitioner's note and agree with the documented findings and plan of care. L liza sounds are positive for dim breath sounds throughout the lung villasenor. The findings and the impression was discussed with the patient. I attest to the documentation by the nurse practitioner. Time with Patient: Less than 30
[2021-12-02] MEDS: SODIUM CHLORIDE 0.9% 1,000 ML IV SCH (15:49)
[2021-12-02] MEDS ORDERED: WARFARIN 7.5 MG TAB PO ONE (18:00)
--- NOTE | 2021-12-02 18:36 | P.DS ---
Providers Date of admission: 11/27/21 17:11 Expected date of discharge: 12/02/21 Attending physician: Fredi Ferguson Consults: 11/27/21 17:00 Consult Physician Routine Consulting Provider: Garrick Figueroa Consult Reason/Comments: covid, hypoxia Do you want consulting provider notified?: Yes Primary care physician: [facility] Course: Chief Complaint: Short of breath This is a pleasant 66-year-old patient who follows with Dr. Mays. Chronic stable medical conditions include atrial fibrillation on Coumadin, hypertension, morbid obesity, arthritis. Patient did not take the vaccine for COVID 19. 4 days ago patient started getting increasingly short of breath. Wheezing. Cough with some milky sputum. Fevers present. Decreased appetite tired rundown. No loss of smell or taste. No headache. Has some loose stools. Patient's significant other just recover from COVID 19. Patient tested positive for the same the ER. Was found to be significant hypoxic. Admitted with COVID 19 pneumonitis, acute hypoxic respiratory failure, hyponatremia, hypokalemia, acute kidney injury. Started on Decadron, Remdesivir oxygen supplementation. December 01: Coughing up some yellow sputum. Up in a chair. Oral intake fair. Incentive spirometry ordered. On 4 L nasal cannula. Steroids, Remdesivir December 02: Patient 94% on room air. This decreased with activity. Coughing up yellow sputum. Levaquin started. Advised about incentive spirometry. We'll discharge in a tapering dose of steroids. Discussed Discussion and discharge planning more than 35 minutes Consultation: Dr. Davies in [facility] from pulmonary Past medical history to include: Atrial fibrillation, hypertension, morbid obesity Social history: Lives with his significant other. Alcohol rarely. No smoking. 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 Family history: Congestive heart failure, hypertension, [place] Physical examination: VITAL SIGNS: 98.2, 88, 18, 1 33 x 76, 94% room air GENERAL: Up in a chair, breathing improved PSYCH: Alert and oriented x3; mood and affect anxious. NEUROLOGICAL: Cranial nerves grossly intact; no facial asymmetry, moving all 4 limbs Rest of the exam per pulmonary and nursing INVESTIGATIONS, reviewed in the clinical context: December 02: INR 2.7 creatinine 0.9 Liver ultrasound: Limited study Pro-calcitonin 0.08 White count 10 hemoglobin 12.9 platelets 279 INR 3.9 d-dimer 0.7 sodium 132 potassium 2.6 BUN 31 and creatinine 1.41 Lactic acid 3.1 AST 112 ALT 67 Troponin I 0.024, 0.027, 0.025 Coronavirus [PCR]: Detected EKG tracing personally reviewed by me-normal sinus rhythm. Nonspecific T and ST segment changes. Chest x-ray film personally reviewed by me-bilateral infiltrates Assessment and plan: -Acute bilateral COVID-19 infiltrates. Symptoms present for 4 days. Did not take the COVID-19 vaccine.: Better Dexamethasone, vitamin C, vitamin D, continue Coumadin. IV Remdesivir Discharged on tapering dose of steroids -Acute hypoxic respiratory failure from COVID 19: Better 94% on room air. -Coumadin monitoring -Hyponatremia from decreased oral intake: Better Encourage food intake -Severe hypokalemia, patient is on chlorthalidone Replace potassium -Acute kidney injury, likely prerenal: Better DC chlorthalidone, DC lisinopril. IV fluids -Hepatitis, likely hepatic steatosis. Could be from COVID 19. Liver ultrasound unable to get good pictures -Mild hypoalbuminemia Acute phase reactant -Morbid obesity BMI 60.9 Weight loss measures Disposition: Home Plan - Discharge Summary Discharge Rx Participant: Yes New Discharge Prescriptions: New Levofloxacin [Levaquin] 500 mg PO DAILY 5 Days #5 tab Famotidine [Pepcid] 20 mg PO BID #60 tablet Cholecalciferol [Vitamin D3 (125 Mcg = 5000 Iu)] 125 mcg PO DAILY #30 tablet Zinc Sulfate [Orazinc] 220 mg PO DAILY #30 cap predniSONE 10 mg PO DAILY #30 tab Albuterol Inhaler [Ventolin Hfa Inhaler] 2 puff INHALATION RT-Q6H PRN #1 gm PRN Reason: Shortness Of Breath Or Wheezing Ascorbic Acid [Vitamin C] 1,000 mg PO DAILY #60 tab Continue Metoprolol Succinate [Toprol Xl] 100 mg PO HS lisinopriL 40 mg PO W/LUNCH Warfarin [Coumadin] 7.5 mg PO MOFR@1700 Warfarin [Coumadin] 10 mg PO SUTUWETHSA@1700 Flecainide [Tambocor] 50 mg PO BID Chlorthalidone 25 mg PO W/BRKFST Discharge Medication List Metoprolol Succinate [Toprol Xl] 100 mg PO HS 02/17/18 [History] lisinopriL 40 mg PO W/LUNCH 02/17/18 [History] Warfarin [Coumadin] 7.5 mg PO MOFR@1700 12/17/20 [History] Warfarin [Coumadin] 10 mg PO SUTUWETHSA@1700 12/17/20 [History] Chlorthalidone 25 mg PO W/BRKFST 11/27/21 [History] Flecainide [Tambocor] 50 mg PO BID 11/27/21 [History] Albuterol Inhaler [Ventolin Hfa Inhaler] 2 puff INHALATION RT-Q6H PRN #1 gm 12/02/21 [Rx] Ascorbic Acid [Vitamin C] 1,000 mg PO DAILY #60 tab 12/02/21 [Rx] Cholecalciferol [Vitamin D3 (125 Mcg = 5000 Iu)] 125 mcg PO DAILY #30 tablet 12/02/21 [Rx] Famotidine [Pepcid] 20 mg PO BID #60 tablet 12/02/21 [Rx] Levofloxacin [Levaquin] 500 mg PO DAILY 5 Days #5 tab 12/02/21 [Rx] Zinc Sulfate [Orazinc] 220 mg PO DAILY #30 cap 12/02/21 [Rx] predniSONE 10 mg PO DAILY #30 tab 12/02/21 [Rx] Follow up Appointment(s)/Referral(s): [facility] [NON-STAFF] - As Needed (oxygen ) Rafael Mays MD [Primary Care Provider] - 12/12/21 10:30 am Melony Davies MD [STAFF PHYSICIAN] - 12/23/21 2:45 pm (With Kristie) [facility] Visiting Nurse, [NON-STAFF] - As Needed Patient Instructions/Handouts: Coronavirus Disease 2019 (COVID-19) Activity/Diet/Wound Care/Special Instructions: send with [facility] Discharge Disposition: HOME WITH HOME HEALTH SERVICES
== END 2021-12-02 15:25 | disposition home health service (06) | DRG 177 ==
LOC: EC 14:35 → 4SSUR 17:11
PROVIDERS: ADMIT Hospitalist; ATTEND Hospitalist
PROC: 5A09457 Assistance with Respiratory Ventilation, 24-96 Consecutive Hours, Continuous Positive Airway Pressure (ICD-10-PCS; 2021-11-27)
PROC: XW033E5 Introduction of Remdesivir Anti-infective into Peripheral Vein, Percutaneous Approach, New Technology Group 5 (ICD-10-PCS; principal; 2021-11-28)
DX: U07.1 COVID-19 (principal); J12.82 Pneumonia due to coronavirus disease 2019; J96.01 Acute respiratory failure with hypoxia; E87.2 Acidosis; E87.1 Hypo-osmolality and hyponatremia; I48.20 Chronic atrial fibrillation, unspecified; Z68.44 Body mass index [BMI] 60.0-69.9, adult; N17.9 Acute kidney failure, unspecified; E66.01 Morbid (severe) obesity due to excess calories; E88.09 Other disorders of plasma-protein metabolism, not elsewhere classified; K75.9 Inflammatory liver disease, unspecified; K76.0 Fatty (change of) liver, not elsewhere classified; E87.6 Hypokalemia; I12.9 Hypertensive chronic kidney disease with stage 1 through stage 4 chronic kidney disease, or unspecified chronic kidney disease; N18.2 Chronic kidney disease, stage 2 (mild); I44.0 Atrioventricular block, first degree; N40.0 Benign prostatic hyperplasia without lower urinary tract symptoms; M19.90 Unspecified osteoarthritis, unspecified site; Z79.01 Long term (current) use of anticoagulants; Z79.899 Other long term (current) drug therapy; Z87.891 Personal history of nicotine dependence; Z87.39 Personal history of other diseases of the musculoskeletal system and connective tissue; Z86.69 Personal history of other diseases of the nervous system and sense organs; Z87.09 Personal history of other diseases of the respiratory system; Z98.890 Other specified postprocedural states; Z82.49 Family history of ischemic heart disease and other diseases of the circulatory system; G47.33 Obstructive sleep apnea (adult) (pediatric); K80.20 Calculus of gallbladder without cholecystitis without obstruction; R77.8 Other specified abnormalities of plasma proteins
CPT/HCPCS: 36415; 71045; 71046; 76705; 80048; 80053; 82728; 83605; 83615; 83735; 83880; 84132; 84145; 84484; 85025; 85379; 85610; 85730; 86140; 87070; 87205; 87635; 93005; 94640; 99291

== ENCOUNTER → 2022-07-07 | Outpatient (CLI) | payer MEDICARE, OTHER ==
--- NOTE | 2022-07-08 05:15 | PN ---
PROGRESS NOTE A 67-year-old male patient with severe obstructive sleep apnea with an AHI of 92, currently coming in for a yearly check. He continues to be on a BiPAP at a pressure of 16/12 cm of water. Treatment has been successful. He has lost approximately 35 pounds since his last evaluation. He is currently using an AirFit F20 full-face mask large size and his current Chester score is down to 4. I checked the compliance data on his machine and the machine is functional and the patient is demonstrating adequate usage of the machine and he is utilizing the machine more than 4 hours 100% of the time. Averaging around 9 hours of BiPAP use per night and the leak is in order of 16 L/minute and his tidal volume generated is around 640 with a rate of 15 and a minute ventilation of 9.8, and his AHI is down to 3.1 while on treatment. No chest pain. No shortness of breath. No hypersomnia or sleepiness during the day and he is effectively treated. He is in need for new supplies. REVIEW OF SYSTEMS: A 14-point review of system was done, positive findings are mentioned in history of present illness. Review of systems is positive for weight loss. His blood pressure is under better control. His cardiac rhythm is sinus for now. He has paroxysmal atrial fibrillation and he remains on flecainide and lisinopril and the patient is also on long-term anticoagulation with warfarin. PHYSICAL EXAMINATION: VITAL SIGNS: BP is elevated at 212/75 with a pulse of 90, respirations 20, temperature 98.2, saturation 99% on room air. Weight is 471, height is 63, BMI is 58.6. GENERAL APPEARANCE: Obese, calm, comfortable. HEENT: Head atraumatic, normocephalic. NECK: Supple. No JVD. No goiter or neck masses. Mallampati class 4. LUNGS: Clear to auscultation. HEART: Sounds regular, rhythm normal. S1, S2. ABDOMEN: Obese, soft, nontender. Organs cannot be palpated. EXTREMITIES: Trace edema. No cyanosis or clubbing. IMPRESSION: 1. Severe obstructive sleep apnea, AHI of 92, currently on BiPAP, pressures of 16/12. 2. Morbid obesity with interval weight loss, weight is down to 471 with a BMI of 58.6. 3. Chronic hypersomnia, improved. Chester score is down to 4. 4. Hypertension, poorly controlled. 5. Paroxysmal atrial fibrillation. PLAN: 1. Refill supplies. I gave the patient AirFit F20 full-face mask, large size and I also gave him a Simplus large-sized to alternate between these 2 masks. 2. Compliance data was checked and numbers are great. 3. Encourage further weight loss. 4. Tight control of cardiovascular risk factors, risk factors including the blood pressure, which remains to be essentially elevated at this point in time. The patient is to see his primary care physician regarding his blood pressure control. See me back in a year's time in followup. MMODL / IJN: [id number] / HIEU
== END ==
LOC: SLEEP 13:20
PROVIDERS: ATTEND Internal Medicine Critical Care Medicine
DX: G47.33 Obstructive sleep apnea (adult) (pediatric) (principal); E66.01 Morbid (severe) obesity due to excess calories; Z99.89 Dependence on other enabling machines and devices; Z68.43 Body mass index [BMI] 50.0-59.9, adult; I10 Essential (primary) hypertension; I48.0 Paroxysmal atrial fibrillation; Z87.891 Personal history of nicotine dependence

== ENCOUNTER → 2023-08-10 | Outpatient (CLI) | payer MEDICARE, OTHER ==
--- NOTE | 2023-08-10 16:41 | PN ---
PROGRESS NOTE HISTORY OF PRESENT ILLNESS: This is a 68-year-old male patient, morbidly obese, coming in for an annual check regarding obstructive sleep apnea. The patient is morbidly obese and is trying to lose weight. His weight is stable for now. He continues to be on a BiPAP at a pressure of 16/12 cm of water. His machine needs to be updated. The machine is very loud, noisy, turns off unexpectedly in the middle of the night and he is requesting a new BiPAP machine. I checked the compliance data on his machine and the patient has done great over the years. He utilized the machine every night as the patient has severe HORACE with an AHI of 92. He is averaging around 8.5 hours of BiPAP use per night at a pressure of 16/12 with a leak of 0 L/minute while using the Simplus medium-sized full-face mask. Generated tidal volume is 640 with a minute ventilation of 16 L and his AHI is down to 0.9, indicating successful treatment. In fact, he cannot fall asleep or even maintain sleep without his BiPAP machine. At the same time, he has issues with chronic atrial fibrillation. He was taking for flecainide, which impaired his vision. He is currently on a tapering course of flecainide and it remains in a normal sinus rhythm. No other new complaints otherwise for now. REVIEW OF SYSTEMS: A 14-point review of systems was done, positive findings are as mentioned in the history of present illness. The patient has slightly elevated blood pressure. His cardiac rhythm is sinus. No angina, no palpitation, no hypersomnia or sleepiness during the day. No nighttime chest pain or shortness of breath. Vision impairment as mentioned above. Drug induced. PHYSICAL EXAMINATION: VITAL SIGNS: BP is 164/99 with a pulse of 95, respirations 18, temperature 98.4, saturation 97% on room air. Weight is 473. Westfield score of 5. GENERAL APPEARANCE: Obese, calm, comfortable. HEAD: Atraumatic normocephalic. NECK: Supple. There is no JVD. No goiter. No neck mass. Mallampati class IV. LUNGS: Diminished breath sounds, otherwise clear. HEART: Sounds are regular. Positive S1, S2. No S3 or S4. No murmurs. ABDOMEN: Soft, nontender. No organomegaly. EXTREMITIES: No edema. No cyanosis or clubbing. NEUROLOGIC: Awake and alert. There is no focal neurological deficit. IMPRESSION: 1. Severe obstructive sleep apnea with AHI of 92, currently on a BiPAP with successful treatment at a pressure of 16/12 cm of water. Excellent compliance data. 2. Morbid obesity. Body mass index of 58. 3. Chronic hypersomnia Westfield score of 5. 4. Hypertension. 5. Paroxysmal atrial fibrillation. The patient current rhythm is still sinus. PLAN: The patient will need a new BiPAP machine. I ordered a VPAP auto minimum of 4, maximum pressure of 10, this will be utilized at a pressure of 16/12 cm of water. As the patient loses weight, I may switch him to a VPAP auto mode. Continue using the Simplus full-face mask. Activate the smart start feature of the machine as the patient is having difficulties with his vision and reaching out his machine. Encourage weight loss. Maintaining good sleep hygiene measures. See me back in 30 to 90 days after obtaining a new BiPAP unit for another compliancy check. MMODL / IJN: [id number] /
== END ==
LOC: 3 N SLEEP 15:03
PROVIDERS: ATTEND Internal Medicine Critical Care Medicine
DX: G47.33 Obstructive sleep apnea (adult) (pediatric) (principal); E66.01 Morbid (severe) obesity due to excess calories; G47.10 Hypersomnia, unspecified; I10 Essential (primary) hypertension; I48.0 Paroxysmal atrial fibrillation; Z68.43 Body mass index [BMI] 50.0-59.9, adult; Z79.899 Other long term (current) drug therapy; Z79.01 Long term (current) use of anticoagulants; Z87.891 Personal history of nicotine dependence
CPT/HCPCS: 99212